=== PATIENT | female | born 1960 | race Two or more races ===

== ENCOUNTER 2016-11-13 08:33 | Emergency (ER) | payer OTHER ==
[2016-11-13 08:54] VITALS: TEMP 97.8; BMI 20.7
[2016-11-13] MEDS ORDERED: METOCLOPRAMIDE HCL INJECTION 10 MG/2 ML VIAL IVPB ONE (10:05)
[2016-11-13] MEDS ORDERED: SODIUM CHLORIDE 1,000 ML IV STA (10:05)
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
[2016-11-13] MEDS ORDERED: amLODIPine BESYLATE 10 MG TABLET (FP) PO ONE (10:13)
[2016-11-13] MEDS ORDERED: METOCLOPRAMIDE HCL INJECTION 10 MG/2 ML VIAL ONE (10:20)
[2016-11-13] MEDS ORDERED: amLODIPine BESYLATE 5 MG TABLET (FP) ONE (10:29)
[2016-11-13 10:31] LABS: BASOPHIL 0.8 % (0-2.0); MCH 33.8 pg (25.7-33.7); MCHC 34.6 g/dl (32.0-36.0); MEAN CELL VOLUME 97.6 fl (80-96); MEAN PLT VOLUME 9.6 fl (7.5-11.1); NEUTROPHILS 61.6 % (42.8-82.8); PLATELET COUNT 159 K/MM3 (134-434); WHITE BLOOD COUNT 4.8 K/mm3 (4.0-10.0)
[2016-11-13 10:45] LABS: ALBUMIN 4.1 g/dl (3.4-5.0); ANION GAP 7 (8-16); CALCIUM 9.2 mg/dL (8.5-10.1); CO2 28 mmol/L (21-32); CREATININE 0.8 mg/dL (0.55-1.02); GLUCOSE,RANDOM 95 mg/dL (74-106); SGOT/AST 28 U/L (15-37); SGPT/ALT 24 U/L (12-78)
[2016-11-13 10:47] LABS: ALK PHOS 101 U/L (45-117); BILIRUBIN,TOTAL 0.5 mg/dL (0.2-1.0); TOT PROT 7.4 g/dl (6.4-8.2)
[2016-11-13] MEDS ORDERED: ONDANSETRON 4 MG/2 ML VIAL IVPUSH ONE (12:26)
[2016-11-13] MEDS ORDERED: ONDANSETRON 4 MG/2 ML VIAL ONE (13:08)
[2016-11-13 14:07] VITALS: BP 132/75; PULSE 68
== END 2016-11-13 14:09 | disposition home or self-care (01) ==
LOC: JER 08:33
PROC: 3E033GC Introduction of Other Therapeutic Substance into Peripheral Vein, Percutaneous Approach (ICD-10-PCS; principal; 2016-11-13)
PROC: 3E0337Z Introduction of Electrolytic and Water Balance Substance into Peripheral Vein, Percutaneous Approach (ICD-10-PCS; 2016-11-13)
DX: R11.2 Nausea with vomiting, unspecified (principal); Z21 Asymptomatic human immunodeficiency virus [HIV] infection status; J45.909 Unspecified asthma, uncomplicated; J44.9 Chronic obstructive pulmonary disease, unspecified; I10 Essential (primary) hypertension; F99 Mental disorder, not otherwise specified; K74.60 Unspecified cirrhosis of liver; F17.210 Nicotine dependence, cigarettes, uncomplicated
CPT/HCPCS: 36415; 80053; 83690; 85025; 96361; 96374; 96375; 99282-25

== ENCOUNTER 2016-11-17 11:26 | Emergency (ER) | payer OTHER ==
[2016-11-17 11:39] VITALS: BMI 20.1
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
[2016-11-17] MEDS ORDERED: SODIUM CHLORIDE 1,000 ML IV STA (12:37)
[2016-11-17] MEDS ORDERED: METOCLOPRAMIDE HCL INJECTION 10 MG/2 ML VIAL IVPB ONE (12:37)
[2016-11-17] MEDS ORDERED: FAMOTIDINE 20 MG/50 ML IVPB 50 ML IVPB ONE ×2 (12:37→12:51)
[2016-11-17] MEDS ORDERED: METOCLOPRAMIDE HCL INJECTION 10 MG/2 ML VIAL ONE (12:51)
[2016-11-17 13:17] LABS: BASOPHIL 0.8 % (0-2.0); EOSINOPHIL 1.2 % (0-4.5); MCH 33.7 pg (25.7-33.7); MCHC 34.4 g/dl (32.0-36.0); MEAN PLT VOLUME 10.4 fl (7.5-11.1); PLATELET COUNT 155 K/MM3 (134-434); RDW 12.5 % (11.6-15.6); WHITE BLOOD COUNT 6.2 K/mm3 (4.0-10.0)
[2016-11-17 13:19] LABS: ALBUMIN 3.9 g/dl (3.4-5.0); ANION GAP 4 (8-16); CALCIUM 9.4 mg/dL (8.5-10.1); CO2 30 mmol/L (21-32); CREATININE 0.8 mg/dL (0.55-1.02); GLUCOSE,RANDOM 99 mg/dL (74-106); SGPT/ALT 24 U/L (12-78); TOT PROT 7.1 g/dl (6.4-8.2)
[2016-11-17 13:25] LABS: ALK PHOS 91 U/L (45-117); BILIRUBIN,TOTAL 0.3 mg/dL (0.2-1.0)
[2016-11-17 13:30] LABS: SGOT/AST 33 U/L (15-37)
[2016-11-17 13:34] LABS: URINE MARIJUANA THC POSITIVE ng/ml (CUTOFF=50)
[2016-11-17 13:43] LABS: URINE APPEARANCE TURBID; URINE BILIRUBIN NEGATIVE (NEGATIVE); URINE BLOOD NEGATIVE (NEGATIVE); URINE COLOR AMBER; URINE GLUCOSE (UA) NEGATIVE (NEGATIVE); URINE KETONE NEGATIVE (NEGATIVE); URINE NITRITE NEGATIVE (NEGATIVE); URINE PROTEIN NEGATIVE (NEGATIVE); URINE UROBILINOGEN NEGATIVE E.U./dl (0.2-1.0)
[2016-11-17 13:53] LABS: URINE LEUK ESTERASE 3+ (NEGATIVE)
[2016-11-17 13:57] LABS: URINE RBC 2 /hpf (0-3); URINE WBC 4 /hpf (3-5); YEAST MANY
--- NOTE | 2016-11-17 16:10 | EKG ---
Test Reason : Blood Pressure : / mmHG Vent. Rate : 058 BPM Atrial Rate : 058 BPM P-R Int : 162 ms QRS Dur : 076 ms QT Int : 464 ms P-R-T Axes : 070 001 052 degrees QTc Int : 455 ms SINUS BRADYCARDIA OTHERWISE NORMAL ECG WHEN COMPARED WITH ECG OF 30-AUG-2015 17:43, T WAVE VARIATION Confirmed by KIMBERLY ZUÑIGA MD ([id number]) on 11/17/2016 4:10:17 PM Referred By: Confirmed By:KIMBERLY ZUÑIGA MD
[2016-11-17] MEDS ORDERED: CIPROFLOXACIN 400 MG/D5W 200 ML IVPB ONE (16:56)
[2016-11-17 18:05] VITALS: BP 135/87; PULSE 67; TEMP 99.6
== END 2016-11-17 18:05 | disposition other institution (70) ==
LOC: JER 11:26
PROC: 3E033GC Introduction of Other Therapeutic Substance into Peripheral Vein, Percutaneous Approach (ICD-10-PCS; principal; 2016-11-17)
PROC: 3E03329 Introduction of Other Anti-infective into Peripheral Vein, Percutaneous Approach (ICD-10-PCS; 2016-11-17)
PROC: 3E033GC Introduction of Other Therapeutic Substance into Peripheral Vein, Percutaneous Approach (ICD-10-PCS; 2016-11-17)
DX: N39.0 Urinary tract infection, site not specified (principal); F11.20 Opioid dependence, uncomplicated; F14.20 Cocaine dependence, uncomplicated; F12.20 Cannabis dependence, uncomplicated; I10 Essential (primary) hypertension; J44.9 Chronic obstructive pulmonary disease, unspecified; K74.69 Other cirrhosis of liver; B19.20 Unspecified viral hepatitis C without hepatic coma; Z21 Asymptomatic human immunodeficiency virus [HIV] infection status; F31.9 Bipolar disorder, unspecified; F17.210 Nicotine dependence, cigarettes, uncomplicated
CPT/HCPCS: 36415; 74177-TC; 80053; 80307; 81003; 81015; 83690; 85025; 87086; 93005; 93010; 96365; 96367; 96375; 99285-25; Q9967

== ENCOUNTER 2016-11-18 11:43 | Inpatient (IN) | payer OTHER ==
[2016-11-18 12:55] VITALS: BMI 22.3
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
[2016-11-18] MEDS ORDERED: diphenhydrAMINE HCL 50 MG CAPSULE PO PRN (14:40)
[2016-11-18] MEDS ORDERED: MAGNESIUM CITRATE 300 ML BOTTLE PO PRN (14:40)
[2016-11-18] MEDS ORDERED: diazePAM 5 MG TABLET PO PRN (14:40)
[2016-11-18] MEDS ORDERED: ACETAMINOPHEN 325 MG TABLET (FP) PO PRN (14:40)
[2016-11-18] MEDS ORDERED: IBUPROFEN 400 MG TABLET (FP) PO PRN (14:40)
[2016-11-18] MEDS ORDERED: MAGNESIUM HYDROX 2400MG/30ML ORAL SUSPENSION 30 ML CUP PO PRN (14:40)
[2016-11-18] MEDS ORDERED: guaiFENesin/D-METHORPHAN HB 10 ML UNIT-DOSE CUPS PO PRN (14:40)
[2016-11-18] MEDS ORDERED: MENTHOL/PHENOL 1 EACH UD MM PRN (14:40)
[2016-11-18] MEDS ORDERED: P-EPHED 60MG/TRIPROLIDI 2.5MG TABLET PO PRN (14:40)
[2016-11-18] MEDS ORDERED: MAG HYDROX/AL HYDROX/SIMETH 30 ML UNIT-DOSE CUP PO PRN (14:40)
[2016-11-18] MEDS ORDERED: LOPERAMIDE HCL 2 MG CAPSULE PO PRN (14:40)
[2016-11-18] MEDS ORDERED: ALBUTEROL SO4 6.7 GM HFA INHALER IH PRN (14:47)
[2016-11-18] MEDS ORDERED: diazePAM 5 MG TABLET PO ONE (14:50)
[2016-11-18] MEDS ORDERED: METHADONE HCL 10 MG TABLET (FOR DETOX USE ONLY) PO ONE ×2 (14:54→23:00)
[2016-11-18] MEDS: NICOTINE 21 MG/24 HOURS TOPICAL PATCH TD SCH (15:48)
[2016-11-18] MEDS ORDERED: PATIENT'S OWN MEDICATION (NON-FORMULARY) (Sofosbuvir/Velpatasvir [Epclusa 400 Mg-100 Mg Ta PO SCH (16:00)
[2016-11-18] MEDS: PATIENT'S OWN MEDICATION (NON-FORMULARY) (Sofosbuvir/Velpatasvir [Epclusa 400 Mg-100 Mg Ta PO SCH (18:10)
[2016-11-18 20:24] LABS: URINE APPEARANCE CLOUDY; URINE BILIRUBIN NEGATIVE (NEGATIVE); URINE BLOOD NEGATIVE (NEGATIVE); URINE COLOR YELLOW; URINE GLUCOSE (UA) NEGATIVE (NEGATIVE); URINE KETONE NEGATIVE (NEGATIVE); URINE NITRITE NEGATIVE (NEGATIVE); URINE PROTEIN NEGATIVE (NEGATIVE); URINE UROBILINOGEN NEGATIVE E.U./dl (0.2-1.0)
[2016-11-18 20:27] LABS: URINE LEUK ESTERASE 3+ (NEGATIVE)
[2016-11-18 20:40] LABS: URINE BACTERIA RARE /hpf (NONE SEEN); URINE MUCUS RARE; URINE RBC 5 /hpf (0-3); URINE WBC 3 /hpf (3-5)
[2016-11-18] MEDS: THIAMINE HCL 100 MG TABLET (FP) PO SCH (22:10)
[2016-11-18] MEDS: diazePAM 5 MG TABLET PO SCH (22:10)
[2016-11-19] MEDS: diazePAM 5 MG TABLET PO SCH ×3 (05:55→22:07)
[2016-11-19] MEDS ORDERED: EMTRICITAB/RILPIVIRINE/TENOFOV 1 EACH TABLET PO SCH (08:00)
--- NOTE | 2016-11-19 08:22 | CONSULT ---
[facility] Psychiatric Consult - Data Date of interview: 11/19/16 Admission source: [facility] Identifying data: This is 55 years old female with history of Bipolar disorder, history of psychiatric hospitalizations intoxicated with: Alcohol, Crack, Heroin and Nicotine Substance Abuse History: - Smoking Cessation. Smoking history: Current every day smoker. Have you smoked in the past 12 months: Yes. Aproximately how many cigarettes per day: 20. Cigars Per Day: 0. Hx Chewing Tobacco Use: No. Initiated information on smoking cessation: Yes. 'Breaking Loose' booklet given : 11/18/16. - Substance & Tx. History. Hx Alcohol Use: Yes (BEER/VODKA). Hx Substance Use: Yes (HEROIN/CRACK). Substance Use Type: Alcohol, Cocaine, Heroin. Hx Substance Use Treatment: Yes ([facility]). - Substances Abused. Heroin. Route: Inhalation. Frequency: Daily. Amount used: 4 BAGS. Age of first use: 55. Date of Last Use: 11/16/16. Crack. Route: Smoking. Frequency: Daily. Amount used: 4 BAGS. Age of first use: 23. Date of Last Use : 11/16/16. Alcohol. Route: Oral. Frequency: Daily. Amount used: 6PK BEER. Age of first use: 9. Date of Last Use: 11/16/16 Medical History: HepC+< HIV+, HTN, UTI history, Weight loss history, Asthma Psychiatric History: Patient reports to carry Bipolar disorder with most recent psychiatric admission. on 2016 at [facility] for safety, reports taking prior to admission: Ambien 10mgpo qhs. Effexor XO 75mg poqd Physical/Sexual Abuse/Trauma History: Denies Additional Comment: Ambien 10mgpo qhs. Effexor XO 75mg poqd Mental Status Exam - Mental Status Exam Alert and Oriented to: Person Cognitive Function: Fair Patient Appearance: Unkempt Mood: Sad Affect: Flat Patient Behavior: Sedated Speech Pattern: Delayed Voice Loudness: Mildly Loud Thought Process: Circumstantial Thought Disorder: Being Controlled Hallucinations: Denies Suicidal Ideation: Denies Homicidal Ideation: Denies Insight/Judgement: Fair Sleep: Difficulty falling asleep Appetite: Weight loss Muscle strength/Tone: Normal Gait/Station: Shuffling Additional Comments: Ambien 10mgpo qhs. Effexor XO 75mg poqd Psychiatric Findings - Problem List ([place] 1, 2,3) (1) Bipolar I disorder Current Visit: No Status: Active (2) Cannabis abuse Current Visit: No Status: Acute (3) Narcotic abuse Current Visit: No Status: Acute (4) Tobacco use disorder Current Visit: No Status: Acute Comment: smoking cessation advised (5) Weight loss, non-intentional Current Visit: No Status: Acute Comment: 20 lb wt loss noted since last visit? check CMP, CBC, TFTs, AFP refer for abd u/s refer to GI for eval rx for Ensure 1 can po tid sent to pharmacy - will likely need PA f/u with PCP in 1 wk (6) Alcohol dependence with uncomplicated withdrawal Current Visit: No Status: Chronic Comment: Reports she is no longer taking alcohol (7) Cannabis dependence, uncomplicated Current Visit: No Status: Chronic (8) Cocaine dependence Current Visit: No Status: Chronic (9) Nicotine dependence Current Visit: No Status: Chronic Qualifiers: Nicotine product type: cigarettes Substance use status: uncomplicated Qualified Code(s): F17.210 - Nicotine dependence, cigarettes, uncomplicated (10) Opioid dependence with withdrawal Current Visit: No Status: Chronic Comment: Encouraged to seek professional assistance. Pt will attenpt admission to Detox (11) bipolar disorder Current Visit: No Status: Chronic - Initial Treatment Plan Initial Treatment Plan: Ambien 10mgpo qhs. Effexor XO 75mg poqd
[2016-11-19] MEDS ORDERED: METHADONE HCL 10 MG TABLET (FOR DETOX USE ONLY) PO SCH (10:00)
[2016-11-19] MEDS ORDERED: PATIENT'S OWN MEDICATION (NON-FORMULARY) (Sofosbuvir/Velpatasvir [Epclusa 400 Mg-100 Mg Ta PO SCH (10:00)
[2016-11-19 10:30] LABS: ALBUMIN 4.2 g/dl (3.4-5.0); ALK PHOS 105 U/L (45-117); ANION GAP 8 (8-16); BILIRUBIN,TOTAL 0.4 mg/dL (0.2-1.0); CALCIUM 9.3 mg/dL (8.5-10.1); CO2 27 mmol/L (21-32); CREATININE 0.8 mg/dL (0.55-1.02); GLUCOSE,RANDOM 111 mg/dL (74-106); SGOT/AST 24 U/L (15-37); SGPT/ALT 25 U/L (12-78); TOT PROT 7.3 g/dl (6.4-8.2)
[2016-11-19] MEDS: amLODIPine BESYLATE 10 MG TABLET (FP) PO SCH (10:30)
[2016-11-19] MEDS: PRENATAL VITAMINS W/ FOLIC ACID TABLET (FP) PO SCH (10:30)
[2016-11-19] MEDS: EMTRICITAB/RILPIVIRINE/TENOFOV 1 EACH TABLET PO SCH (10:30)
[2016-11-19 10:32] LABS: MCH 33.8 pg (25.7-33.7); MCHC 33.9 g/dl (32.0-36.0); MEAN CELL VOLUME 99.7 fl (80-96); MEAN PLT VOLUME 10.7 fl (7.5-11.1); PLATELET COUNT 134 K/MM3 (134-434); RDW 12.4 % (11.6-15.6); WHITE BLOOD COUNT 5.7 K/mm3 (4.0-10.0)
[2016-11-19] MEDS: NICOTINE 21 MG/24 HOURS TOPICAL PATCH TD SCH (10:32)
--- NOTE | 2016-11-19 11:00 | PN ---
S CIWA - CIWA Score Nausea/Vomitin Muscle Tremors: 2 Anxiety: 3 Agitation: 2 Paroxysmal Sweats: 3 Orientation: 0-Oriented Tacttile Disturbances: 1-Very Mild Itch/Numbness Auditory Disturbances: 0-None Visual Disturbances: 0-None Headache: 0-None Present CIWA-Ar Total Score: 13 S COWS - Scale Resting Pulse: 0= [place] 80 or Below Sweatin=Flushed/Facial Moisture Restless Observation: 1= Difficult to Sit Still Pupil Size: 1= Pupils >than Normal Bone or Joint Aches: 1= Mild Discomfort Runny Nose/ Eye Tearin= Nasal Congestion GI Upset > 30mins: 1= Stomach Cramp Tremor Observation of Outstretched Hands: 1= Tremor [place], Not Seen Yawning Observation: 0= None Anxiety or Irritability: 2=Irritable/Anxious Goose Flesh Skin: 0=Smooth Skin COWS Score: 10 S Progress Note (SOAP) Subjective: interrupted sleep, sweats, but better Objective: 11/19/16 10:59 Vital Signs Temperature 97.7 F 11/19/16 10:12 Pulse Rate 64 11/19/16 10:12 Respiratory Rate 18 11/19/16 10:12 Blood Pressure 111/70 11/19/16 10:12 O2 Sat by Pulse Oximetry (%) Laboratory Tests 11/18/16 11/19/16 11/19/16 15:00 05:45 05:45 WBC 5.7 RBC 4.29 Hgb 14.5 Hct 42.8 MCV 99.7 H MCHC 33.9 RDW 12.4 Plt Count 134 MPV 10.7 Sodium 144 Potassium 3.5 Chloride 109 H Carbon Dioxide 27 Anion Gap 8 BUN 10 D Creatinine 0.8 Creat Clearance w eGFR > 60 Random Glucose 111 H Calcium 9.3 Total Bilirubin 0.4 D AST 24 D ALT 25 Alkaline Phosphatase 105 Total Protein 7.3 Albumin 4.2 Urine Color Yellow Urine Appearance Cloudy Urine pH 6.0 D Ur Specific [place] 1.017 Urine Protein Negative Urine Glucose (UA) Negative Urine Ketones Negative Urine Blood Negative Urine Nitrite Negative Urine Bilirubin Negative Urine Urobilinogen Negative Ur Leukocyte Esterase 3+ H Urine RBC 5 Urine WBC 3 Ur Epithelial Cells Moderate Urine Bacteria Rare Urine Mucus Rare pt aox3 lying in bed in nad Assessment: 11/19/16 10:59 withdrawl sx;s Plan: cont. detox increase fluids
[2016-11-19] MEDS: VENLAFAXINE HCL 75 MG E.R. CAPSULES (FP) PO SCH (12:13)
[2016-11-19] MEDS: NICOTINE POLACRILEX 4 MG GUM BUC PRN (15:04)
--- NOTE | 2016-11-19 17:07 | EKG ---
Test Reason : Blood Pressure : / mmHG Vent. Rate : 067 BPM Atrial Rate : 067 BPM P-R Int : 160 ms QRS Dur : 090 ms QT Int : 410 ms P-R-T Axes : 062 009 034 degrees QTc Int : 433 ms NORMAL SINUS RHYTHM VOLTAGE CRITERIA FOR LEFT VENTRICULAR HYPERTROPHY ABNORMAL ECG WHEN COMPARED WITH ECG OF 17-NOV-2016 13:16, NO SIGNIFICANT CHANGE WAS FOUND Confirmed by MCKENZIE GARCIA MD ([id number]) on 11/19/2016 5:06:53 PM Referred By: Confirmed By:MCKENZIE GARCIA MD
[2016-11-19] MEDS: hydrOXYzine PAMOATE 25 MG CAPSULE (FP) PO PRN (17:25)
[2016-11-19] MEDS: PATIENT'S OWN MEDICATION (NON-FORMULARY) (Sofosbuvir/Velpatasvir [Epclusa 400 Mg-100 Mg Ta PO SCH (17:25)
[2016-11-19] MEDS ORDERED: ONDANSETRON *ODT* 4 MG TABLET SL ONE (19:23)
--- NOTE | 2016-11-19 19:25 | PN ---
[facility] Progress Note Note: received nurse call vomiting x 1 undigested food zofran 4 mg sl x 1 increase oral fluid continue detox
[2016-11-19] MEDS: ZOLPIDEM TARTRATE 10 MG TABLET (PARK CARE ONLY) PO PRN (22:06)
[2016-11-19] MEDS: THIAMINE HCL 100 MG TABLET (FP) PO SCH (22:07)
[2016-11-20] MEDS: EMTRICITAB/RILPIVIRINE/TENOFOV 1 EACH TABLET PO SCH (08:36)
[2016-11-20] MEDS: PRENATAL VITAMINS W/ FOLIC ACID TABLET (FP) PO SCH (10:41)
[2016-11-20] MEDS: diazePAM 5 MG TABLET PO SCH ×2 (10:41→22:20)
[2016-11-20] MEDS: amLODIPine BESYLATE 10 MG TABLET (FP) PO SCH (10:41)
[2016-11-20] MEDS: METHADONE HCL 5 MG TABLET (FOR DETOX USE ONLY) PO SCH (10:41)
[2016-11-20] MEDS: VENLAFAXINE HCL 75 MG E.R. CAPSULES (FP) PO SCH (10:41)
[2016-11-20] MEDS: NICOTINE 21 MG/24 HOURS TOPICAL PATCH TD SCH (10:43)
[2016-11-20] MEDS ORDERED: IBUPROFEN 600 MG TABLET (FP) PO PRN (11:49)
--- NOTE | 2016-11-20 11:49 | PN ---
[facility] CIWA - CIWA Score Nausea/Vomitin-No Nausea/No Vomiting Muscle Tremors: 4-Moderate,w/Arms Extend Anxiety: 2 Agitation: 3 Paroxysmal Sweats: 3 Orientation: 0-Oriented Tacttile Disturbances: 0-None Auditory Disturbances: 0-None Visual Disturbances: 0-None Headache: 0-None Present CIWA-Ar Total Score: 12 S COWS - Scale Resting Pulse: 0= [place] 80 or Below Sweatin=Flushed/Facial Moisture Restless Observation: 1= Difficult to Sit Still Pupil Size: 0= Normal to Room Light Bone or Joint Aches: 1= Mild Discomfort Runny Nose/ Eye Tearin= Nasal Congestion GI Upset > 30mins: 0= None Tremor Observation of Outstretched Hands: 2= Slight Tremor Visible Yawning Observation: 2= >3x During Session Anxiety or Irritability: 2=Irritable/Anxious Goose Flesh Skin: 0=Smooth Skin COWS Score: 11 [facility] Progress Note (SOAP) Subjective: body aches sweats headache interrupted sleep shakes Objective: 11/20/16 11:47 Vital Signs Temperature 97.3 F L 11/20/16 10:00 Pulse Rate 60 11/20/16 10:00 Respiratory Rate 18 11/20/16 10:00 Blood Pressure 119/72 11/20/16 10:00 O2 Sat by Pulse Oximetry (%) Laboratory Tests 11/18/16 11/19/16 11/19/16 15:00 05:45 05:45 WBC 5.7 RBC 4.29 Hgb 14.5 Hct 42.8 MCV 99.7 H MCHC 33.9 RDW 12.4 Plt Count 134 MPV 10.7 Sodium 144 Potassium 3.5 Chloride 109 H Carbon Dioxide 27 Anion Gap 8 BUN 10 D Creatinine 0.8 Creat Clearance w eGFR > 60 Random Glucose 111 H Calcium 9.3 Total Bilirubin 0.4 D AST 24 D ALT 25 Alkaline Phosphatase 105 Total Protein 7.3 Albumin 4.2 Urine Color Yellow Urine Appearance Cloudy Urine pH 6.0 D Ur Specific [place] 1.017 Urine Protein Negative Urine Glucose (UA) Negative Urine Ketones Negative Urine Blood Negative Urine Nitrite Negative Urine Bilirubin Negative Urine Urobilinogen Negative Ur Leukocyte Esterase 3+ H Urine RBC 5 Urine WBC 3 Ur Epithelial Cells Moderate Urine Bacteria Rare Urine Mucus Rare RPR Titer 11/19/16 05:45 WBC RBC Hgb Hct MCV MCHC RDW Plt Count MPV Sodium Potassium Chloride Carbon Dioxide Anion Gap BUN Creatinine Creat Clearance w eGFR Random Glucose Calcium Total Bilirubin AST ALT Alkaline Phosphatase Total Protein Albumin Urine Color Urine Appearance Urine pH Ur Specific [place] Urine Protein Urine Glucose (UA) Urine Ketones Urine Blood Urine Nitrite Urine Bilirubin Urine Urobilinogen Ur Leukocyte Esterase Urine RBC Urine WBC Ur Epithelial Cells Urine Bacteria Urine Mucus RPR Titer Nonreactive awake/alert ambulating no acute distress Assessment: 11/20/16 11:47 continue detox increase fluids lidocaine patch motrin 600mg prn analgesic balm Plan: continue detox increase fluids
[2016-11-20] MEDS: LIDOCAINE 5% TOPICAL PATCH TP SCH (13:37)
[2016-11-20] MEDS: METHYL SALICYLATE/MENTHOL OINT 30 GM TUBE TP SCH ×2 (13:38→22:19)
[2016-11-20] MEDS: PATIENT'S OWN MEDICATION (NON-FORMULARY) (Sofosbuvir/Velpatasvir [Epclusa 400 Mg-100 Mg Ta PO SCH (17:07)
--- NOTE | 2016-11-20 17:34 | PN ---
[facility] Progress Note Note: C/O NAUSEA ZOFRAN 4 MG SL X 1 CONTINUE DETOX
[2016-11-20] MEDS ORDERED: ONDANSETRON *ODT* 4 MG TABLET SL ONE (17:45)
[2016-11-20] MEDS: ZOLPIDEM TARTRATE 10 MG TABLET (PARK CARE ONLY) PO PRN (22:19)
[2016-11-20] MEDS: THIAMINE HCL 100 MG TABLET (FP) PO SCH (22:20)
[2016-11-20] MEDS: hydrOXYzine PAMOATE 25 MG CAPSULE (FP) PO PRN (22:20)
[2016-11-21] MEDS: EMTRICITAB/RILPIVIRINE/TENOFOV 1 EACH TABLET PO SCH (07:47)
[2016-11-21] MEDS: LIDOCAINE 5% TOPICAL PATCH TP SCH (10:11)
[2016-11-21] MEDS: PRENATAL VITAMINS W/ FOLIC ACID TABLET (FP) PO SCH (10:35)
[2016-11-21] MEDS: NICOTINE 21 MG/24 HOURS TOPICAL PATCH TD SCH (10:35)
[2016-11-21] MEDS: amLODIPine BESYLATE 10 MG TABLET (FP) PO SCH (10:35)
[2016-11-21] MEDS: diazePAM 5 MG TABLET PO SCH ×2 (10:35→22:22)
[2016-11-21] MEDS: VENLAFAXINE HCL 75 MG E.R. CAPSULES (FP) PO SCH (10:36)
[2016-11-21] MEDS: METHYL SALICYLATE/MENTHOL OINT 30 GM TUBE TP SCH ×2 (10:38→22:22)
[2016-11-21] MEDS: METHADONE HCL 5 MG TABLET (FOR DETOX USE ONLY) PO SCH (10:38)
[2016-11-21] MEDS: NICOTINE POLACRILEX 4 MG GUM BUC PRN (10:39)
--- NOTE | 2016-11-21 14:02 | PN ---
[facility] Progress Note (SOAP) Subjective: nausea, sweats, interupted sleep, anxiety, tremors , back and knee 0pain Objective: 11/21/16 14:01 Vital Signs - 8 hr 11/21/16 11/21/16 06:32 10:04 Temperature 98.8 F 97.5 F L Pulse Rate 64 64 Respiratory 16 18 Rate Blood Pressure 99/60 113/64 Laboratory Tests 11/18/16 11/19/16 11/19/16 15:00 05:45 05:45 WBC 5.7 RBC 4.29 Hgb 14.5 Hct 42.8 MCV 99.7 H MCHC 33.9 RDW 12.4 Plt Count 134 MPV 10.7 Sodium 144 Potassium 3.5 Chloride 109 H Carbon Dioxide 27 Anion Gap 8 BUN 10 D Creatinine 0.8 Creat Clearance w eGFR > 60 Random Glucose 111 H Calcium 9.3 Total Bilirubin 0.4 D AST 24 D ALT 25 Alkaline Phosphatase 105 Total Protein 7.3 Albumin 4.2 Urine Color Yellow Urine Appearance Cloudy Urine pH 6.0 D Ur Specific [place] 1.017 Urine Protein Negative Urine Glucose (UA) Negative Urine Ketones Negative Urine Blood Negative Urine Nitrite Negative Urine Bilirubin Negative Urine Urobilinogen Negative Ur Leukocyte Esterase 3+ H Urine RBC 5 Urine WBC 3 Ur Epithelial Cells Moderate Urine Bacteria Rare Urine Mucus Rare RPR Titer 11/19/16 05:45 WBC RBC Hgb Hct MCV MCHC RDW Plt Count MPV Sodium Potassium Chloride Carbon Dioxide Anion Gap BUN Creatinine Creat Clearance w eGFR Random Glucose Calcium Total Bilirubin AST ALT Alkaline Phosphatase Total Protein Albumin Urine Color Urine Appearance Urine pH Ur Specific [place] Urine Protein Urine Glucose (UA) Urine Ketones Urine Blood Urine Nitrite Urine Bilirubin Urine Urobilinogen Ur Leukocyte Esterase Urine RBC Urine WBC Ur Epithelial Cells Urine Bacteria Urine Mucus RPR Titer Nonreactive Assessment: 11/21/16 14:02 withdrawal sx, nociceptive pain Plan: cont detox, symptomatic relief o pain with narpsyn and flexeril
[2016-11-21] MEDS: CYCLOBENZAPRINE HCL 10 MG TABLET (FP) PO SCH ×2 (15:10→22:22)
[2016-11-21] MEDS: PATIENT'S OWN MEDICATION (NON-FORMULARY) (Sofosbuvir/Velpatasvir [Epclusa 400 Mg-100 Mg Ta PO SCH (18:35)
[2016-11-21] MEDS: THIAMINE HCL 100 MG TABLET (FP) PO SCH (22:21)
[2016-11-21] MEDS: NAPROXEN 500 MG TABLET (FP) PO SCH (22:22)
[2016-11-21] MEDS: ZOLPIDEM TARTRATE 10 MG TABLET (PARK CARE ONLY) PO PRN (22:22)
[2016-11-22] MEDS: CYCLOBENZAPRINE HCL 10 MG TABLET (FP) PO SCH ×3 (05:58→22:11)
[2016-11-22] MEDS: EMTRICITAB/RILPIVIRINE/TENOFOV 1 EACH TABLET PO SCH (07:23)
[2016-11-22] MEDS ORDERED: diazePAM 5 MG TABLET PO SCH (10:00)
[2016-11-22] MEDS ORDERED: METHADONE HCL 10 MG TABLET (FOR DETOX USE ONLY) PO SCH (10:00)
[2016-11-22] MEDS: PRENATAL VITAMINS W/ FOLIC ACID TABLET (FP) PO SCH (10:30)
[2016-11-22] MEDS: VENLAFAXINE HCL 75 MG E.R. CAPSULES (FP) PO SCH (10:30)
[2016-11-22] MEDS: amLODIPine BESYLATE 10 MG TABLET (FP) PO SCH (10:30)
[2016-11-22] MEDS: NAPROXEN 500 MG TABLET (FP) PO SCH ×2 (10:30→22:11)
[2016-11-22] MEDS: LIDOCAINE 5% TOPICAL PATCH TP SCH (10:31)
[2016-11-22] MEDS: NICOTINE 21 MG/24 HOURS TOPICAL PATCH TD SCH (10:31)
[2016-11-22] MEDS: METHYL SALICYLATE/MENTHOL OINT 30 GM TUBE TP SCH ×2 (10:32→22:10)
--- NOTE | 2016-11-22 11:30 | PN ---
[facility] Progress Note (SOAP) Subjective: nausea, sweats, interrupted sleep, anxiety, tremors Objective: 11/22/16 11:29 Vital Signs - 8 hr 11/22/16 11/22/16 11/22/16 03:30 06:00 11:00 Temperature 97.7 F 97.2 F L Pulse Rate 64 64 Respiratory 18 18 18 Rate Blood Pressure 103/66 105/70 Laboratory Tests 11/18/16 11/19/16 11/19/16 15:00 05:45 05:45 WBC 5.7 RBC 4.29 Hgb 14.5 Hct 42.8 MCV 99.7 H MCHC 33.9 RDW 12.4 Plt Count 134 MPV 10.7 Sodium 144 Potassium 3.5 Chloride 109 H Carbon Dioxide 27 Anion Gap 8 BUN 10 D Creatinine 0.8 Creat Clearance w eGFR > 60 Random Glucose 111 H Calcium 9.3 Total Bilirubin 0.4 D AST 24 D ALT 25 Alkaline Phosphatase 105 Total Protein 7.3 Albumin 4.2 Urine Color Yellow Urine Appearance Cloudy Urine pH 6.0 D Ur Specific [place] 1.017 Urine Protein Negative Urine Glucose (UA) Negative Urine Ketones Negative Urine Blood Negative Urine Nitrite Negative Urine Bilirubin Negative Urine Urobilinogen Negative Ur Leukocyte Esterase 3+ H Urine RBC 5 Urine WBC 3 Ur Epithelial Cells Moderate Urine Bacteria Rare Urine Mucus Rare RPR Titer 11/19/16 05:45 WBC RBC Hgb Hct MCV MCHC RDW Plt Count MPV Sodium Potassium Chloride Carbon Dioxide Anion Gap BUN Creatinine Creat Clearance w eGFR Random Glucose Calcium Total Bilirubin AST ALT Alkaline Phosphatase Total Protein Albumin Urine Color Urine Appearance Urine pH Ur Specific [place] Urine Protein Urine Glucose (UA) Urine Ketones Urine Blood Urine Nitrite Urine Bilirubin Urine Urobilinogen Ur Leukocyte Esterase Urine RBC Urine WBC Ur Epithelial Cells Urine Bacteria Urine Mucus RPR Titer Nonreactive Assessment: 11/22/16 11:29 withdrawal sx Plan: cont detox
[2016-11-22] MEDS: PATIENT'S OWN MEDICATION (NON-FORMULARY) (Sofosbuvir/Velpatasvir [Epclusa 400 Mg-100 Mg Ta PO SCH (17:12)
[2016-11-22] MEDS: THIAMINE HCL 100 MG TABLET (FP) PO SCH (22:10)
[2016-11-22] MEDS: ZOLPIDEM TARTRATE 10 MG TABLET (PARK CARE ONLY) PO PRN (22:11)
[2016-11-23] MEDS: CYCLOBENZAPRINE HCL 10 MG TABLET (FP) PO SCH (05:48)
[2016-11-23] MEDS ORDERED: METHADONE HCL 5 MG TABLET (FOR DETOX USE ONLY) PO SCH (06:00)
[2016-11-23] MEDS: EMTRICITAB/RILPIVIRINE/TENOFOV 1 EACH TABLET PO SCH (07:49)
--- NOTE | 2016-11-23 08:53 | DS ---
[facility] Detox Discharge Summary Admission Date: 11/18/16 Discharge Date: 11/23/16 - History Present History: Cannabis Dependence - Physical Exam Results Vital Signs: Vital Signs Temperature 98.1 F 11/23/16 06:00 Pulse Rate 69 11/23/16 06:00 Respiratory Rate 18 11/23/16 06:00 Blood Pressure 116/69 11/23/16 06:00 O2 Sat by Pulse Oximetry (%) - Treatment Hospital Course: Detox Protocol Followed, Detoxed Safely, Responded well, Discharged Condition Good, Rehab Referral Accepted - Medication Discharge Medications: Ambulatory Orders Sofosbuvir/Velpatasvir [Epclusa 400 mg-100 mg Tablet] 1 each PO DAILY #30 tablet 07/30/16 Albuterol Sulfate Inhaler - [Ventolin HFA Inhaler -] 2 inh IH Q4H PRN #1 inh Amlodipine Besylate [Norvasc -] 10 mg PO DAILY #30 tablet 10/28/16 Emtricitab/Rilpivirine/Tenofov [Complera Tablet -] 1 each PO DAILY #30 tablet Venlafaxine HCl ER [Effexor Xr -] 75 mg PO DAILY #30 cap.er.24h MDD 1 10/28/16 Zolpidem Tartrate [Ambien] 10 mg PO HS #20 tablet MDD 1 10/28/16 Zolpidem Tartrate [Ambien] 0 mg PO HS #14 tablet MDD 10 11/19/16 Zolpidem Tartrate [Ambien] 10 mg GT HS #14 tablet MDD 10 11/19/16 Zolpidem Tartrate [Ambien] 10 mg GT HS #14 tablet MDD 10 11/19/16 Zolpidem Tartrate [Ambien] 10 mg PO HS #14 tablet MDD 10 11/19/16 Zolpidem Tartrate [Ambien] 10 mg PO HS PRN #14 tablet MDD 10 11/19/16 - AMA Did Patient Leave Against Medical Advice: No
[2016-11-23] MEDS: amLODIPine BESYLATE 10 MG TABLET (FP) PO SCH (10:10)
[2016-11-23] MEDS: VENLAFAXINE HCL 75 MG E.R. CAPSULES (FP) PO SCH (10:10)
[2016-11-23] MEDS: NICOTINE 21 MG/24 HOURS TOPICAL PATCH TD SCH (10:10)
[2016-11-23] MEDS: NAPROXEN 500 MG TABLET (FP) PO SCH (10:10)
[2016-11-23] MEDS: PRENATAL VITAMINS W/ FOLIC ACID TABLET (FP) PO SCH (10:10)
[2016-11-23] MEDS: LIDOCAINE 5% TOPICAL PATCH TP SCH (10:12)
[2016-11-23] MEDS: METHYL SALICYLATE/MENTHOL OINT 30 GM TUBE TP SCH (10:12)
[2016-11-23 10:15] VITALS: BP 105/63; PULSE 68; TEMP 97.1
== END 2016-11-23 12:29 | disposition other institution (70) | DRG 773 ==
LOC: YASAS 11:43 → Y6N 14:33
PROVIDERS: ADMIT Internal Medicine Addiction Medicine; ATTEND Internal Medicine Addiction Medicine
PROC: HZ2ZZZZ Detoxification Services for Substance Abuse Treatment (ICD-10-PCS; principal; 2016-11-18)
DX: F11.23 Opioid dependence with withdrawal (principal); F10.230 Alcohol dependence with withdrawal, uncomplicated; F14.20 Cocaine dependence, uncomplicated; F12.20 Cannabis dependence, uncomplicated; F17.210 Nicotine dependence, cigarettes, uncomplicated; F31.9 Bipolar disorder, unspecified; J45.909 Unspecified asthma, uncomplicated; I10 Essential (primary) hypertension; E78.00 Pure hypercholesterolemia, unspecified; K74.60 Unspecified cirrhosis of liver; Z21 Asymptomatic human immunodeficiency virus [HIV] infection status; Z87.898 Personal history of other specified conditions; Z91.5 Personal history of self-harm
CPT/HCPCS: 36415; 80053; 81003; 81015; 85027; 86593; 93005; 93010

== ENCOUNTER 2016-11-23 13:15 | Inpatient (IN) | payer OTHER ==
[2016-11-23 14:10] VITALS: BMI 22.4
[2016-11-23] MEDS ORDERED: MENTHOL/PHENOL 1 EACH UD MM PRN (14:29)
[2016-11-23] MEDS ORDERED: MAGNESIUM CITRATE 300 ML BOTTLE PO PRN (14:29)
[2016-11-23] MEDS ORDERED: MAGNESIUM HYDROX 2400MG/30ML ORAL SUSPENSION 30 ML CUP PO PRN (14:29)
[2016-11-23] MEDS ORDERED: guaiFENesin/D-METHORPHAN HB 10 ML UNIT-DOSE CUPS PO PRN (14:29)
[2016-11-23] MEDS ORDERED: diphenhydrAMINE HCL 50 MG CAPSULE PO PRN (14:29)
[2016-11-23] MEDS ORDERED: P-EPHED 60MG/TRIPROLIDI 2.5MG TABLET PO PRN (14:29)
[2016-11-23] MEDS ORDERED: MAG HYDROX/AL HYDROX/SIMETH 30 ML UNIT-DOSE CUP PO PRN (14:29)
[2016-11-23] MEDS ORDERED: LOPERAMIDE HCL 2 MG CAPSULE PO PRN (14:29)
[2016-11-23] MEDS ORDERED: ALBUTEROL SO4 6.7 GM HFA INHALER IH PRN (14:30)
--- NOTE | 2016-11-23 15:22 | HP ---
Psychiatrist Admission - Data Date of interview: 11/23/16 Admission source: [address] [place] [address] Identifying data: This is the third admission to [address] [place] [address] for this 55 years old H female single mother of 4,supported by rhoda GÓMEZ. Medical History: Significant for HIV+,Hep C,HTN,Liver cirrhosis,Hyperlipidemia. Psychiatric History: First contact with psychiatrist was in 2007 in [place] when she found out that she is HIV+.Patient got severe depressed,suicidal(DOD) .Patient was dx with Bipolar disorder and placed on medications.Then she had second admission a few months later for the same reason.Patient reports 4-5 more psychiatric hospitalizations .Most recent was in 2016 to [facility].Patient is under psychiatric care at [facility].Current medications: Seroquel 50 mg po hs,Effexor XR 75 po daily. Vital Signs: Vital Signs - 24 hr 11/23/16 11/23/16 12:50 14:09 Temperature 97.9 F 97.9 F Pulse Rate 69 Respiratory 18 Rate Blood Pressure 98/64 Allergies/Adverse Reactions: Allergies Allergy/AdvReac Type Severity Reaction Status Date / Time Penicillins Allergy Severe Swelling Verified 11/18/16 13:28 Date of last physical exam: 11/18/16 Concur with the findings of this exam: Yes - Substance Abuse/Tx History Hx Alcohol Use: Yes (reports drinking since 9 yo,6 packs daily) Hx Substance Use: Yes (crack since 23 yo,4 bags daily,heroin since 55 yo,4 bags daily ) Substance Use Type: Alcohol, Cocaine, Heroin Hx Substance Use Treatment: Yes (multiple treatments,completed this program in 2016) - Admission Criteria Previous failed treatment: Yes Poor recovery environment: Yes Comorbidities: Yes Lacks judgement: Yes Mental Status Exam - Mental Status Exam Alert and Oriented to: Time, Place, Person Cognitive Function: Grossly Intact Patient Appearance: Unkempt Mood: Anxious Affect: Mood Congruent, Labile Patient Behavior: Cooperative Speech Pattern: Clear Voice Loudness: Normal Thought Process: Goal Oriented Thought Disorder: Being Controlled Hallucinations: Denies Suicidal Ideation: Denies Homicidal Ideation: Denies Insight/Judgement: Fair Sleep: Fair Appetite: Fair Muscle strength/Tone: Normal Gait/Station: Normal Psychiatric Findings - Problem List ([place] 1, 2,3) (1) Alcohol dependence with uncomplicated withdrawal Current Visit: Yes Status: Chronic Comment: Reports she is no longer taking alcohol (2) Bipolar II disorder Current Visit: Yes Status: Chronic (3) Cocaine dependence Current Visit: Yes Status: Chronic Qualifiers: Substance use status: uncomplicated Qualified Code(s): F14.20 - Cocaine dependence, uncomplicated (4) Cannabis abuse Current Visit: Yes Status: Chronic (5) HIV disease Current Visit: Yes Status: Chronic (6) Hep C w/o coma, chronic Current Visit: Yes Status: Chronic Comment: Pt started Epclusa end of Jul/beginning of August with undetectable VL in August and September; pt should have completed tx but states someone told her she still has 1 mo left; ? adherence? -checked w/ pharmacy; pt picked up meds end of Jul/Aug; refilled beginning of September and beginning of October - pt should have completed medication; will f /u with pt and pt's regular provider (Satish Prieto, [facility]) -check Hep C VL, AFP -refer for abd u/s (7) Hypertension Current Visit: Yes Status: Chronic Qualifiers: Hypertension type: essential hypertension Qualified Code(s): I10 - Essential (primary) hypertension Comment: Continue Norvasc as prescribed - Initial Treatment Plan Initial Treatment Plan: CONTINUE SEROQUEL 50 MG PO HS. WILL MONITOR PROGRESS.
--- NOTE | 2016-11-23 16:13 | HP ---
[facility] Rehab Assess/Revision - Admission History Admitted to Rehab from: [facility] [place] Date of Admission to Rehab: 11/23/16 - Vital signs Vital Signs: Vital Signs Period Temp Pulse Resp BP Sys/Cole Pulse Ox Last 24 Hr 97.9 F-97.9 F 69 18 98/64 - Findings Detox History & Physical reviewed: Yes Concur with findings: Yes Comments/Additional Findings: transferred from detox to rehab admission as per protocol
[2016-11-23] MEDS: THIAMINE HCL 100 MG TABLET (FP) PO SCH (21:24)
[2016-11-23] MEDS: QUEtiapine FUMARATE 50 MG TABLET PO SCH (21:24)
[2016-11-24] MEDS ORDERED: PT OWN MED DRAWER 7, Y5N ONE (08:46)
[2016-11-24] MEDS ORDERED: amLODIPine BESYLATE 10 MG TABLET (FP) PO SCH (10:00)
[2016-11-24] MEDS: LIDOCAINE 5% TOPICAL PATCH TP SCH (10:41)
[2016-11-24] MEDS: PRENATAL VITAMINS W/ FOLIC ACID TABLET (FP) PO SCH (10:41)
[2016-11-24] MEDS: PATIENT'S OWN MEDICATION (NON-FORMULARY) (Sofosbuvir/Velpatasvir [Epclusa 400 Mg-100 Mg Ta PO SCH (10:42)
[2016-11-24] MEDS: NICOTINE 21 MG/24 HOURS TOPICAL PATCH TD SCH (10:42)
[2016-11-24] MEDS ORDERED: ONDANSETRON *ODT* 4 MG TABLET SL PRN (12:30)
[2016-11-24] MEDS: THIAMINE HCL 100 MG TABLET (FP) PO SCH (21:18)
[2016-11-24] MEDS: CYCLOBENZAPRINE HCL 10 MG TABLET (FP) PO PRN (21:18)
[2016-11-24] MEDS: QUEtiapine FUMARATE 50 MG TABLET PO SCH (21:18)
[2016-11-24] MEDS: ACETAMINOPHEN 325 MG TABLET (FP) PO PRN (21:18)
[2016-11-25] MEDS: EMTRICITAB/RILPIVIRINE/TENOFOV 1 EACH TABLET PO SCH (08:22)
[2016-11-25] MEDS: LIDOCAINE 5% TOPICAL PATCH TP SCH (10:02)
[2016-11-25] MEDS: PRENATAL VITAMINS W/ FOLIC ACID TABLET (FP) PO SCH (10:02)
[2016-11-25] MEDS: amLODIPine BESYLATE 5 MG TABLET (FP) PO SCH (10:03)
[2016-11-25] MEDS: NICOTINE 21 MG/24 HOURS TOPICAL PATCH TD SCH (10:05)
[2016-11-25] MEDS: PATIENT'S OWN MEDICATION (NON-FORMULARY) (Sofosbuvir/Velpatasvir [Epclusa 400 Mg-100 Mg Ta PO SCH ×2 (10:05→17:25)
[2016-11-25] MEDS ORDERED: PT OWN MED DRAWER 7, Y5N ONE ×2 (10:06→16:35)
[2016-11-25] MEDS: THIAMINE HCL 100 MG TABLET (FP) PO SCH (21:25)
[2016-11-25] MEDS: QUEtiapine FUMARATE 50 MG TABLET PO SCH (21:25)
[2016-11-26] MEDS: EMTRICITAB/RILPIVIRINE/TENOFOV 1 EACH TABLET PO SCH (07:21)
[2016-11-26] MEDS ORDERED: PT OWN MED DRAWER 7, Y5N ONE (07:29)
[2016-11-26] MEDS: LIDOCAINE 5% TOPICAL PATCH TP SCH (10:20)
[2016-11-26] MEDS: PRENATAL VITAMINS W/ FOLIC ACID TABLET (FP) PO SCH (10:20)
[2016-11-26] MEDS: NICOTINE 21 MG/24 HOURS TOPICAL PATCH TD SCH (10:21)
[2016-11-26] MEDS: amLODIPine BESYLATE 5 MG TABLET (FP) PO SCH (10:22)
[2016-11-26] MEDS: NICOTINE POLACRILEX 4 MG GUM BUC PRN (11:22)
[2016-11-26] MEDS: PATIENT'S OWN MEDICATION (NON-FORMULARY) (Sofosbuvir/Velpatasvir [Epclusa 400 Mg-100 Mg Ta PO SCH (17:35)
[2016-11-26] MEDS: THIAMINE HCL 100 MG TABLET (FP) PO SCH (21:28)
[2016-11-26] MEDS: QUEtiapine FUMARATE 50 MG TABLET PO SCH (21:28)
[2016-11-27] MEDS: EMTRICITAB/RILPIVIRINE/TENOFOV 1 EACH TABLET PO SCH (07:18)
[2016-11-27] MEDS: NICOTINE 21 MG/24 HOURS TOPICAL PATCH TD SCH (10:17)
[2016-11-27] MEDS: PRENATAL VITAMINS W/ FOLIC ACID TABLET (FP) PO SCH (10:17)
[2016-11-27] MEDS: LIDOCAINE 5% TOPICAL PATCH TP SCH (10:17)
[2016-11-27] MEDS: amLODIPine BESYLATE 5 MG TABLET (FP) PO SCH (10:18)
--- NOTE | 2016-11-27 12:24 | PN ---
[facility] Progress Note Note: c/o burning on urination and whitish foul smelling discharge from on vagina repeat urinalysis, urine for c and s, start monistat for presumed yeast infection.
[2016-11-27] MEDS: PATIENT'S OWN MEDICATION (NON-FORMULARY) (Sofosbuvir/Velpatasvir [Epclusa 400 Mg-100 Mg Ta PO SCH (16:59)
[2016-11-27 21:02] LABS: URINE APPEARANCE CLOUDY; URINE BILIRUBIN NEGATIVE (NEGATIVE); URINE BLOOD NEGATIVE (NEGATIVE); URINE COLOR DKYELLOW; URINE GLUCOSE (UA) NEGATIVE (NEGATIVE); URINE KETONE NEGATIVE (NEGATIVE); URINE NITRITE NEGATIVE (NEGATIVE); URINE PROTEIN NEGATIVE (NEGATIVE); URINE UROBILINOGEN NEGATIVE E.U./dl (0.2-1.0)
[2016-11-27] MEDS: QUEtiapine FUMARATE 50 MG TABLET PO SCH (21:07)
[2016-11-27] MEDS: THIAMINE HCL 100 MG TABLET (FP) PO SCH (21:07)
[2016-11-27] MEDS: hydrOXYzine PAMOATE 50 MG CAPSULE (FP) PO PRN (21:07)
[2016-11-27 21:08] LABS: URINE LEUK ESTERASE 3+ (NEGATIVE)
[2016-11-27] MEDS: MICONAZOLE NITRATE 100 MG SUPP SUPP.VAG PV SCH (21:08)
[2016-11-27 21:42] LABS: URINE BACTERIA RARE /hpf (NONE SEEN); URINE MUCUS RARE; URINE RBC 9 /hpf (0-3); URINE WBC 82 /hpf (3-5)
[2016-11-28] MEDS: EMTRICITAB/RILPIVIRINE/TENOFOV 1 EACH TABLET PO SCH (07:04)
[2016-11-28] MEDS ORDERED: PT OWN MED DRAWER 7, Y5N ONE ×2 (07:05→17:29)
[2016-11-28] MEDS: PRENATAL VITAMINS W/ FOLIC ACID TABLET (FP) PO SCH (10:00)
[2016-11-28] MEDS: LIDOCAINE 5% TOPICAL PATCH TP SCH (10:00)
[2016-11-28] MEDS: NICOTINE 21 MG/24 HOURS TOPICAL PATCH TD SCH (10:00)
[2016-11-28] MEDS: NICOTINE POLACRILEX 4 MG GUM BUC PRN (10:01)
[2016-11-28] MEDS: PATIENT'S OWN MEDICATION (NON-FORMULARY) (Sofosbuvir/Velpatasvir [Epclusa 400 Mg-100 Mg Ta PO SCH (17:44)
[2016-11-28] MEDS: MICONAZOLE NITRATE 100 MG SUPP SUPP.VAG PV SCH (21:13)
[2016-11-28] MEDS: THIAMINE HCL 100 MG TABLET (FP) PO SCH (21:14)
[2016-11-28] MEDS: QUEtiapine FUMARATE 50 MG TABLET PO SCH (21:14)
[2016-11-29] MEDS: EMTRICITAB/RILPIVIRINE/TENOFOV 1 EACH TABLET PO SCH (07:29)
[2016-11-29] MEDS: LIDOCAINE 5% TOPICAL PATCH TP SCH (10:02)
[2016-11-29] MEDS: PRENATAL VITAMINS W/ FOLIC ACID TABLET (FP) PO SCH (10:02)
[2016-11-29] MEDS: NICOTINE 21 MG/24 HOURS TOPICAL PATCH TD SCH (10:02)
[2016-11-29] MEDS: CYCLOBENZAPRINE HCL 10 MG TABLET (FP) PO PRN (14:54)
[2016-11-29] MEDS ORDERED: PT OWN MED DRAWER 7, Y5N ONE (16:46)
[2016-11-29] MEDS: PATIENT'S OWN MEDICATION (NON-FORMULARY) (Sofosbuvir/Velpatasvir [Epclusa 400 Mg-100 Mg Ta PO SCH (17:35)
[2016-11-29] MEDS: QUEtiapine FUMARATE 50 MG TABLET PO SCH (21:03)
[2016-11-29] MEDS: MICONAZOLE NITRATE 100 MG SUPP SUPP.VAG PV SCH (21:03)
[2016-11-29] MEDS: THIAMINE HCL 100 MG TABLET (FP) PO SCH (21:03)
[2016-11-30] MEDS: EMTRICITAB/RILPIVIRINE/TENOFOV 1 EACH TABLET PO SCH (07:34)
[2016-11-30] MEDS: CYCLOBENZAPRINE HCL 10 MG TABLET (FP) PO PRN (07:36)
[2016-11-30] MEDS ORDERED: PT OWN MED DRAWER 7, Y5N ONE ×2 (07:36→19:15)
[2016-11-30] MEDS: PRENATAL VITAMINS W/ FOLIC ACID TABLET (FP) PO SCH (09:53)
[2016-11-30] MEDS: LIDOCAINE 5% TOPICAL PATCH TP SCH (09:54)
[2016-11-30] MEDS: NICOTINE 21 MG/24 HOURS TOPICAL PATCH TD SCH (09:54)
--- NOTE | 2016-11-30 14:27 | PN ---
[facility] Progress Note Note: u/c&s + for trep agalatiae sensitive to levaquin levaquin 500mg x 7d
[2016-11-30] MEDS: LEVOFLOXACIN 500 MG TABLET (FP) PO SCH (15:40)
[2016-11-30] MEDS: PATIENT'S OWN MEDICATION (NON-FORMULARY) (Sofosbuvir/Velpatasvir [Epclusa 400 Mg-100 Mg Ta PO SCH (17:30)
[2016-11-30] MEDS: THIAMINE HCL 100 MG TABLET (FP) PO SCH (21:45)
[2016-11-30] MEDS: QUEtiapine FUMARATE 50 MG TABLET PO SCH (21:45)
[2016-11-30] MEDS: MICONAZOLE NITRATE 100 MG SUPP SUPP.VAG PV SCH (21:45)
[2016-12-01] MEDS ORDERED: PT OWN MED DRAWER 7, Y5N ONE ×3 (05:34→23:20)
[2016-12-01] MEDS: LEVOFLOXACIN 500 MG TABLET (FP) PO SCH (06:54)
[2016-12-01] MEDS: EMTRICITAB/RILPIVIRINE/TENOFOV 1 EACH TABLET PO SCH (07:29)
[2016-12-01] MEDS: PRENATAL VITAMINS W/ FOLIC ACID TABLET (FP) PO SCH (09:55)
[2016-12-01] MEDS: LIDOCAINE 5% TOPICAL PATCH TP SCH (09:55)
[2016-12-01] MEDS: NICOTINE 21 MG/24 HOURS TOPICAL PATCH TD SCH (09:56)
[2016-12-01] MEDS: PATIENT'S OWN MEDICATION (NON-FORMULARY) (Sofosbuvir/Velpatasvir [Epclusa 400 Mg-100 Mg Ta PO SCH (17:30)
[2016-12-01] MEDS: MICONAZOLE NITRATE 100 MG SUPP SUPP.VAG PV SCH (21:16)
[2016-12-01] MEDS: THIAMINE HCL 100 MG TABLET (FP) PO SCH (21:17)
[2016-12-01] MEDS: QUEtiapine FUMARATE 50 MG TABLET PO SCH (21:17)
[2016-12-02] MEDS: LEVOFLOXACIN 500 MG TABLET (FP) PO SCH (06:18)
[2016-12-02] MEDS ORDERED: PT OWN MED DRAWER 7, Y5N ONE ×3 (08:19→20:13)
[2016-12-02] MEDS: EMTRICITAB/RILPIVIRINE/TENOFOV 1 EACH TABLET PO SCH (08:22)
[2016-12-02] MEDS: PRENATAL VITAMINS W/ FOLIC ACID TABLET (FP) PO SCH (09:43)
[2016-12-02] MEDS: NICOTINE 21 MG/24 HOURS TOPICAL PATCH TD SCH (09:43)
[2016-12-02] MEDS: LIDOCAINE 5% TOPICAL PATCH TP SCH (09:43)
[2016-12-02] MEDS: NICOTINE POLACRILEX 4 MG GUM BUC PRN (09:45)
[2016-12-02] MEDS: PATIENT'S OWN MEDICATION (NON-FORMULARY) (Sofosbuvir/Velpatasvir [Epclusa 400 Mg-100 Mg Ta PO SCH (18:50)
[2016-12-02] MEDS: MICONAZOLE NITRATE 100 MG SUPP SUPP.VAG PV SCH (21:11)
[2016-12-02] MEDS: THIAMINE HCL 100 MG TABLET (FP) PO SCH (21:11)
[2016-12-02] MEDS: QUEtiapine FUMARATE 50 MG TABLET PO SCH (21:11)
[2016-12-03] MEDS ORDERED: PT OWN MED DRAWER 7, Y5N ONE ×5 (03:13→21:16)
[2016-12-03] MEDS: LEVOFLOXACIN 500 MG TABLET (FP) PO SCH (06:29)
[2016-12-03] MEDS: EMTRICITAB/RILPIVIRINE/TENOFOV 1 EACH TABLET PO SCH (07:07)
[2016-12-03] MEDS: LIDOCAINE 5% TOPICAL PATCH TP SCH (10:04)
[2016-12-03] MEDS: NICOTINE 21 MG/24 HOURS TOPICAL PATCH TD SCH (10:05)
[2016-12-03] MEDS: PRENATAL VITAMINS W/ FOLIC ACID TABLET (FP) PO SCH (10:05)
[2016-12-03] MEDS: NICOTINE POLACRILEX 4 MG GUM BUC PRN (10:07)
[2016-12-03] MEDS: hydrOXYzine PAMOATE 50 MG CAPSULE (FP) PO PRN (15:34)
[2016-12-03] MEDS: PATIENT'S OWN MEDICATION (NON-FORMULARY) (Sofosbuvir/Velpatasvir [Epclusa 400 Mg-100 Mg Ta PO SCH (16:37)
[2016-12-03] MEDS: THIAMINE HCL 100 MG TABLET (FP) PO SCH (21:15)
[2016-12-03] MEDS: QUEtiapine FUMARATE 50 MG TABLET PO SCH (21:15)
[2016-12-03] MEDS: MICONAZOLE NITRATE 100 MG SUPP SUPP.VAG PV SCH (21:16)
[2016-12-04] MEDS ORDERED: PT OWN MED DRAWER 7, Y5N ONE ×3 (03:16→20:04)
[2016-12-04] MEDS: LEVOFLOXACIN 500 MG TABLET (FP) PO SCH (06:27)
[2016-12-04] MEDS: EMTRICITAB/RILPIVIRINE/TENOFOV 1 EACH TABLET PO SCH (07:48)
[2016-12-04] MEDS: PRENATAL VITAMINS W/ FOLIC ACID TABLET (FP) PO SCH (10:04)
[2016-12-04] MEDS: NICOTINE 21 MG/24 HOURS TOPICAL PATCH TD SCH (10:04)
[2016-12-04] MEDS: LIDOCAINE 5% TOPICAL PATCH TP SCH (10:04)
--- NOTE | 2016-12-04 14:59 | PN ---
[facility] Progress Note Note: Pt. vomited 2x today,she's on levaquin for uti c&s + for strep agalaciae, pt. has hx. of PID. bp 122/77 p 96 r 16 t 97.9 O2 sat 100% abd. : soft lower abdomen but tender to touch Dx. : UTI R/O PID P : transfer to ED, report given to Dr. Frye
[2016-12-04] MEDS: PATIENT'S OWN MEDICATION (NON-FORMULARY) (Sofosbuvir/Velpatasvir [Epclusa 400 Mg-100 Mg Ta PO SCH (19:06)
[2016-12-04] MEDS: THIAMINE HCL 100 MG TABLET (FP) PO SCH (21:27)
[2016-12-04] MEDS: QUEtiapine FUMARATE 50 MG TABLET PO SCH (21:27)
[2016-12-04] MEDS: MICONAZOLE NITRATE 100 MG SUPP SUPP.VAG PV SCH (21:29)
[2016-12-05] MEDS ORDERED: PT OWN MED DRAWER 7, Y5N ONE ×2 (06:02→16:53)
[2016-12-05] MEDS: EMTRICITAB/RILPIVIRINE/TENOFOV 1 EACH TABLET PO SCH (07:03)
[2016-12-05] MEDS: NITROFURANTOIN MACROCRYSTAL 50 MG CAPSULE (FP) PO SCH ×3 (08:27→17:08)
[2016-12-05] MEDS: PRENATAL VITAMINS W/ FOLIC ACID TABLET (FP) PO SCH (09:48)
[2016-12-05] MEDS: NICOTINE 21 MG/24 HOURS TOPICAL PATCH TD SCH (09:48)
[2016-12-05] MEDS: LIDOCAINE 5% TOPICAL PATCH TP SCH (09:48)
[2016-12-05] MEDS: NICOTINE POLACRILEX 4 MG GUM BUC PRN (09:49)
[2016-12-05] MEDS: PATIENT'S OWN MEDICATION (NON-FORMULARY) (Sofosbuvir/Velpatasvir [Epclusa 400 Mg-100 Mg Ta PO SCH (17:09)
[2016-12-05] MEDS: THIAMINE HCL 100 MG TABLET (FP) PO SCH (21:19)
[2016-12-05] MEDS: QUEtiapine FUMARATE 50 MG TABLET PO SCH (21:19)
[2016-12-05] MEDS: MICONAZOLE NITRATE 100 MG SUPP SUPP.VAG PV SCH (21:21)
[2016-12-06] MEDS: NITROFURANTOIN MACROCRYSTAL 50 MG CAPSULE (FP) PO SCH ×5 (01:00→23:19)
[2016-12-06] MEDS ORDERED: PT OWN MED DRAWER 7, Y5N ONE ×4 (05:41→17:02)
[2016-12-06] MEDS: EMTRICITAB/RILPIVIRINE/TENOFOV 1 EACH TABLET PO SCH (07:03)
[2016-12-06] MEDS: LIDOCAINE 5% TOPICAL PATCH TP SCH (09:39)
[2016-12-06] MEDS: PRENATAL VITAMINS W/ FOLIC ACID TABLET (FP) PO SCH (09:40)
[2016-12-06] MEDS: NICOTINE POLACRILEX 4 MG GUM BUC PRN (09:40)
[2016-12-06] MEDS: NICOTINE 21 MG/24 HOURS TOPICAL PATCH TD SCH (09:40)
[2016-12-06] MEDS: PATIENT'S OWN MEDICATION (NON-FORMULARY) (Sofosbuvir/Velpatasvir [Epclusa 400 Mg-100 Mg Ta PO SCH (17:03)
[2016-12-06] MEDS: THIAMINE HCL 100 MG TABLET (FP) PO SCH (21:15)
[2016-12-06] MEDS: QUEtiapine FUMARATE 50 MG TABLET PO SCH (21:15)
[2016-12-06] MEDS: MICONAZOLE NITRATE 100 MG SUPP SUPP.VAG PV SCH (21:16)
[2016-12-07] MEDS ORDERED: PT OWN MED DRAWER 7, Y5N ONE ×5 (03:14→16:16)
[2016-12-07] MEDS: NITROFURANTOIN MACROCRYSTAL 50 MG CAPSULE (FP) PO SCH ×4 (06:13→23:56)
[2016-12-07] MEDS: EMTRICITAB/RILPIVIRINE/TENOFOV 1 EACH TABLET PO SCH (07:51)
[2016-12-07] MEDS: LIDOCAINE 5% TOPICAL PATCH TP SCH (09:51)
[2016-12-07] MEDS: PRENATAL VITAMINS W/ FOLIC ACID TABLET (FP) PO SCH (09:51)
[2016-12-07] MEDS: NICOTINE 21 MG/24 HOURS TOPICAL PATCH TD SCH (09:51)
[2016-12-07] MEDS: NICOTINE POLACRILEX 4 MG GUM BUC PRN (09:52)
[2016-12-07] MEDS: PATIENT'S OWN MEDICATION (NON-FORMULARY) (Sofosbuvir/Velpatasvir [Epclusa 400 Mg-100 Mg Ta PO SCH (17:37)
[2016-12-07] MEDS: THIAMINE HCL 100 MG TABLET (FP) PO SCH (21:18)
[2016-12-07] MEDS: QUEtiapine FUMARATE 50 MG TABLET PO SCH (21:18)
[2016-12-08] MEDS ORDERED: PT OWN MED DRAWER 7, Y5N ONE ×4 (05:57→23:24)
[2016-12-08] MEDS: NITROFURANTOIN MACROCRYSTAL 50 MG CAPSULE (FP) PO SCH ×4 (06:05→23:23)
[2016-12-08] MEDS: EMTRICITAB/RILPIVIRINE/TENOFOV 1 EACH TABLET PO SCH (08:00)
[2016-12-08] MEDS: PRENATAL VITAMINS W/ FOLIC ACID TABLET (FP) PO SCH (09:39)
[2016-12-08] MEDS: NICOTINE 21 MG/24 HOURS TOPICAL PATCH TD SCH (09:40)
[2016-12-08] MEDS: LIDOCAINE 5% TOPICAL PATCH TP SCH (09:41)
[2016-12-08] MEDS: PATIENT'S OWN MEDICATION (NON-FORMULARY) (Sofosbuvir/Velpatasvir [Epclusa 400 Mg-100 Mg Ta PO SCH (17:00)
[2016-12-08] MEDS: THIAMINE HCL 100 MG TABLET (FP) PO SCH (21:15)
[2016-12-08] MEDS: QUEtiapine FUMARATE 50 MG TABLET PO SCH (21:15)
[2016-12-09] MEDS ORDERED: PT OWN MED DRAWER 7, Y5N ONE ×5 (03:42→23:26)
[2016-12-09] MEDS: NITROFURANTOIN MACROCRYSTAL 50 MG CAPSULE (FP) PO SCH ×3 (07:17→17:32)
[2016-12-09] MEDS: EMTRICITAB/RILPIVIRINE/TENOFOV 1 EACH TABLET PO SCH (07:17)
[2016-12-09] MEDS: NICOTINE 21 MG/24 HOURS TOPICAL PATCH TD SCH (10:09)
[2016-12-09] MEDS: LIDOCAINE 5% TOPICAL PATCH TP SCH (10:09)
[2016-12-09] MEDS: PRENATAL VITAMINS W/ FOLIC ACID TABLET (FP) PO SCH (10:09)
[2016-12-09] MEDS: NICOTINE POLACRILEX 4 MG GUM BUC PRN (10:11)
--- NOTE | 2016-12-09 15:41 | PN ---
[facility] Progress Note Note: continue to have vaginal discharge,has hx of PID P : Doxycyclin 100mg bid
[2016-12-09] MEDS: DOXYCYCLINE HYCLATE 100 MG TABLET PO SCH (17:32)
[2016-12-09] MEDS: PATIENT'S OWN MEDICATION (NON-FORMULARY) (Sofosbuvir/Velpatasvir [Epclusa 400 Mg-100 Mg Ta PO SCH (17:32)
[2016-12-09] MEDS: THIAMINE HCL 100 MG TABLET (FP) PO SCH (21:18)
[2016-12-09] MEDS: QUEtiapine FUMARATE 50 MG TABLET PO SCH (21:18)
[2016-12-10] MEDS: NITROFURANTOIN MACROCRYSTAL 50 MG CAPSULE (FP) PO SCH ×5 (00:42→23:14)
[2016-12-10] MEDS: EMTRICITAB/RILPIVIRINE/TENOFOV 1 EACH TABLET PO SCH (07:18)
[2016-12-10] MEDS ORDERED: PT OWN MED DRAWER 7, Y5N ONE ×7 (07:19→23:15)
[2016-12-10] MEDS: LIDOCAINE 5% TOPICAL PATCH TP SCH (09:49)
[2016-12-10] MEDS: PRENATAL VITAMINS W/ FOLIC ACID TABLET (FP) PO SCH (09:50)
[2016-12-10] MEDS: NICOTINE 21 MG/24 HOURS TOPICAL PATCH TD SCH (09:50)
[2016-12-10] MEDS: DOXYCYCLINE HYCLATE 100 MG TABLET PO SCH ×2 (09:51→17:01)
[2016-12-10] MEDS: ACETAMINOPHEN 325 MG TABLET (FP) PO PRN (15:06)
[2016-12-10] MEDS: PATIENT'S OWN MEDICATION (NON-FORMULARY) (Sofosbuvir/Velpatasvir [Epclusa 400 Mg-100 Mg Ta PO SCH (17:02)
[2016-12-10] MEDS: THIAMINE HCL 100 MG TABLET (FP) PO SCH (21:23)
[2016-12-10] MEDS: QUEtiapine FUMARATE 50 MG TABLET PO SCH (21:23)
[2016-12-11] MEDS ORDERED: PT OWN MED DRAWER 7, Y5N ONE ×4 (05:48→16:49)
[2016-12-11] MEDS: NITROFURANTOIN MACROCRYSTAL 50 MG CAPSULE (FP) PO SCH ×4 (07:13→23:54)
[2016-12-11] MEDS: EMTRICITAB/RILPIVIRINE/TENOFOV 1 EACH TABLET PO SCH (07:13)
[2016-12-11] MEDS: DOXYCYCLINE HYCLATE 100 MG TABLET PO SCH ×2 (10:00→17:23)
[2016-12-11] MEDS: PRENATAL VITAMINS W/ FOLIC ACID TABLET (FP) PO SCH (10:00)
[2016-12-11] MEDS: NICOTINE 21 MG/24 HOURS TOPICAL PATCH TD SCH (10:00)
[2016-12-11] MEDS: LIDOCAINE 5% TOPICAL PATCH TP SCH (10:01)
[2016-12-11] MEDS: PATIENT'S OWN MEDICATION (NON-FORMULARY) (Sofosbuvir/Velpatasvir [Epclusa 400 Mg-100 Mg Ta PO SCH (17:24)
[2016-12-11] MEDS: THIAMINE HCL 100 MG TABLET (FP) PO SCH (21:10)
[2016-12-11] MEDS: QUEtiapine FUMARATE 50 MG TABLET PO SCH (21:10)
[2016-12-12] MEDS: EMTRICITAB/RILPIVIRINE/TENOFOV 1 EACH TABLET PO SCH (07:20)
[2016-12-12] MEDS: NICOTINE 21 MG/24 HOURS TOPICAL PATCH TD SCH (09:32)
[2016-12-12] MEDS: LIDOCAINE 5% TOPICAL PATCH TP SCH (09:33)
[2016-12-12] MEDS: PRENATAL VITAMINS W/ FOLIC ACID TABLET (FP) PO SCH (09:33)
[2016-12-12] MEDS: DOXYCYCLINE HYCLATE 100 MG TABLET PO SCH ×2 (09:33→17:06)
[2016-12-12] MEDS ORDERED: PT OWN MED DRAWER 7, Y5N ONE ×2 (10:14→16:21)
[2016-12-12] MEDS: PATIENT'S OWN MEDICATION (NON-FORMULARY) (Sofosbuvir/Velpatasvir [Epclusa 400 Mg-100 Mg Ta PO SCH (17:03)
[2016-12-12] MEDS: NICOTINE POLACRILEX 4 MG GUM BUC PRN (17:06)
[2016-12-12] MEDS: QUEtiapine FUMARATE 50 MG TABLET PO SCH (21:20)
[2016-12-12] MEDS: THIAMINE HCL 100 MG TABLET (FP) PO SCH (21:20)
[2016-12-13] MEDS ORDERED: PT OWN MED DRAWER 7, Y5N ONE ×3 (03:17→16:39)
[2016-12-13] MEDS: EMTRICITAB/RILPIVIRINE/TENOFOV 1 EACH TABLET PO SCH (07:12)
[2016-12-13] MEDS: LIDOCAINE 5% TOPICAL PATCH TP SCH (09:50)
[2016-12-13] MEDS: DOXYCYCLINE HYCLATE 100 MG TABLET PO SCH ×2 (09:51→17:00)
[2016-12-13] MEDS: PRENATAL VITAMINS W/ FOLIC ACID TABLET (FP) PO SCH (09:51)
[2016-12-13] MEDS: NICOTINE 21 MG/24 HOURS TOPICAL PATCH TD SCH (09:51)
[2016-12-13] MEDS: NICOTINE POLACRILEX 4 MG GUM BUC PRN (09:53)
[2016-12-13] MEDS: PATIENT'S OWN MEDICATION (NON-FORMULARY) (Sofosbuvir/Velpatasvir [Epclusa 400 Mg-100 Mg Ta PO SCH (17:00)
[2016-12-13] MEDS: QUEtiapine FUMARATE 50 MG TABLET PO SCH (21:07)
[2016-12-13] MEDS: THIAMINE HCL 100 MG TABLET (FP) PO SCH (21:07)
[2016-12-14] MEDS ORDERED: PT OWN MED DRAWER 7, Y5N ONE ×4 (06:02→21:06)
[2016-12-14] MEDS: EMTRICITAB/RILPIVIRINE/TENOFOV 1 EACH TABLET PO SCH (07:15)
[2016-12-14] MEDS: LIDOCAINE 5% TOPICAL PATCH TP SCH (09:49)
[2016-12-14] MEDS: DOXYCYCLINE HYCLATE 100 MG TABLET PO SCH ×2 (09:49→18:20)
[2016-12-14] MEDS: PRENATAL VITAMINS W/ FOLIC ACID TABLET (FP) PO SCH (09:49)
[2016-12-14] MEDS: NICOTINE 21 MG/24 HOURS TOPICAL PATCH TD SCH (09:49)
[2016-12-14] MEDS: NICOTINE POLACRILEX 4 MG GUM BUC PRN (09:50)
[2016-12-14] MEDS: hydrOXYzine PAMOATE 50 MG CAPSULE (FP) PO PRN (16:51)
[2016-12-14] MEDS: PATIENT'S OWN MEDICATION (NON-FORMULARY) (Sofosbuvir/Velpatasvir [Epclusa 400 Mg-100 Mg Ta PO SCH ×2 (17:25→18:54)
[2016-12-14] MEDS: THIAMINE HCL 100 MG TABLET (FP) PO SCH (21:18)
[2016-12-14] MEDS: QUEtiapine FUMARATE 50 MG TABLET PO SCH (21:18)
[2016-12-15] MEDS ORDERED: PT OWN MED DRAWER 7, Y5N ONE ×3 (05:50→10:57)
[2016-12-15 07:26] VITALS: BP 119/80; PULSE 71; TEMP 97.5
[2016-12-15] MEDS: EMTRICITAB/RILPIVIRINE/TENOFOV 1 EACH TABLET PO SCH (07:35)
[2016-12-15] MEDS: LIDOCAINE 5% TOPICAL PATCH TP SCH (09:50)
[2016-12-15] MEDS: DOXYCYCLINE HYCLATE 100 MG TABLET PO SCH (09:50)
[2016-12-15] MEDS: NICOTINE 21 MG/24 HOURS TOPICAL PATCH TD SCH (09:50)
[2016-12-15] MEDS: PRENATAL VITAMINS W/ FOLIC ACID TABLET (FP) PO SCH (09:50)
--- NOTE | 2017-03-03 11:13 | PN ---
[facility] Progress Note Note: Patient completed this program on 12/15/16.She has met her treatment goals and will continue to address her issues on outpatient basis.PAtient will continue current medications as per plan ,scripts for 30 days supply provided.Patient was stable on d/c day 12/15/16.
== END 2016-12-15 10:21 | disposition home or self-care (01) | DRG 772 ==
LOC: YASAS 13:15 → Y3E 13:17
PROVIDERS: ADMIT Psychiatry & Neurology Psychiatry; ATTEND Psychiatry & Neurology Psychiatry
PROC: HZ42ZZZ Group Counseling for Substance Abuse Treatment, Cognitive-Behavioral (ICD-10-PCS; principal; 2016-12-15)
DX: F10.230 Alcohol dependence with withdrawal, uncomplicated (principal); F14.20 Cocaine dependence, uncomplicated; F12.10 Cannabis abuse, uncomplicated; F31.81 Bipolar II disorder; Z21 Asymptomatic human immunodeficiency virus [HIV] infection status; B18.2 Chronic viral hepatitis C; I10 Essential (primary) hypertension
CPT/HCPCS: 81003; 81015; 87086; 87186

== ENCOUNTER 2016-12-04 15:46 | Emergency (ER) | payer OTHER ==
[2016-12-04 15:55] VITALS: TEMP 98.7; BMI 20.5
[2016-12-04] MEDS ORDERED: KETOROLAC TROMETHAMINE 30 MG/1 ML VIAL IVPUSH ONE (16:17)
[2016-12-04] MEDS ORDERED: SODIUM CHLORIDE 1,000 ML IV STA (16:19)
[2016-12-04] MEDS ORDERED: KETOROLAC TROMETHAMINE 30 MG/1 ML VIAL ONE (16:29)
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
[2016-12-04] MEDS ORDERED: ONDANSETRON 4 MG/2 ML VIAL ONE (16:35)
[2016-12-04] MEDS ORDERED: ONDANSETRON 4 MG/2 ML VIAL IVPUSH ONE (16:44)
[2016-12-04 16:52] LABS: BASOPHIL 1.4 % (0-2.0); EOSINOPHIL 2.2 % (0-4.5); MCH 32.6 pg (25.7-33.7); MEAN CELL VOLUME 95.9 fl (80-96); MEAN PLT VOLUME 9.6 fl (7.5-11.1); NEUTROPHILS 62.9 % (42.8-82.8); PLATELET COUNT 150 K/MM3 (134-434); RDW 12.7 % (11.6-15.6); WHITE BLOOD COUNT 6.6 K/mm3 (4.0-10.0)
[2016-12-04 16:56] LABS: URINE APPEARANCE CLOUDY; URINE BILIRUBIN NEGATIVE (NEGATIVE); URINE BLOOD NEGATIVE (NEGATIVE); URINE COLOR YELLOW; URINE GLUCOSE (UA) NEGATIVE (NEGATIVE); URINE KETONE NEGATIVE (NEGATIVE); URINE NITRITE NEGATIVE (NEGATIVE); URINE PROTEIN NEGATIVE (NEGATIVE); URINE UROBILINOGEN NEGATIVE E.U./dl (0.2-1.0)
[2016-12-04 17:07] LABS: URINE LEUK ESTERASE TRACE (NEGATIVE)
[2016-12-04 17:13] LABS: ALK PHOS 117 U/L (45-117); ANION GAP 8 (8-16); BILIRUBIN,TOTAL 0.2 mg/dL (0.2-1.0); CALCIUM 9.9 mg/dL (8.5-10.1); CO2 32 mmol/L (21-32); CREATININE 0.9 mg/dL (0.55-1.02); GLUCOSE,RANDOM 98 mg/dL (74-106); SGOT/AST 24 U/L (15-37); SGPT/ALT 25 U/L (12-78); TOT PROT 7.4 g/dl (6.4-8.2)
[2016-12-04 17:29] LABS: URINE RBC 3 /hpf (0-3); URINE WBC 13 /hpf (3-5)
[2016-12-04 18:18] VITALS: BP 134/85; PULSE 88
== END 2016-12-04 18:16 | disposition home or self-care (01) ==
LOC: JER 15:46
DX: K52.9 Noninfective gastroenteritis and colitis, unspecified (principal); R30.0 Dysuria; I10 Essential (primary) hypertension; E78.00 Pure hypercholesterolemia, unspecified; K74.60 Unspecified cirrhosis of liver
CPT/HCPCS: 36415; 80053; 81003; 81015; 83690; 85025; 87086; 99283-25

== ENCOUNTER 2017-06-14 09:12 | Emergency (ER) | payer OTHER ==
[2017-06-14] MEDS ORDERED: ONDANSETRON 4 MG/2 ML VIAL ONE (09:28)
[2017-06-14 09:29] VITALS: TEMP 97.9; BMI 23.4
[2017-06-14] MEDS ORDERED: SODIUM CHLORIDE 1,000 ML IV ONE (09:30)
[2017-06-14 09:52] LABS: BASOPHIL 0.5 % (0-2.0); EOSINOPHIL 0.1 % (0-4.5); MCH 32.8 pg (25.7-33.7); MCHC 34.3 g/dl (32.0-36.0); MEAN CELL VOLUME 95.7 fl (80-96); MEAN PLT VOLUME 10.3 fl (7.5-11.1); NEUTROPHILS 82.1 % (42.8-82.8); PLATELET COUNT 170 K/MM3 (134-434); RDW 13.5 % (11.6-15.6); WHITE BLOOD COUNT 9.7 K/mm3 (4.0-10.0)
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
[2017-06-14] MEDS ORDERED: MAG HYDROX/AL HYDROX/SIMETH 355 ML ORAL.SUSP PO ONE (09:57)
[2017-06-14] MEDS ORDERED: FAMOTIDINE 20 MG/50 ML IVPB 50 ML IVPB ONE ×2 (09:57→10:03)
[2017-06-14] MEDS ORDERED: MAG HYDROX/AL HYDROX/SIMETH 30 ML UNIT-DOSE CUP ONE (10:03)
[2017-06-14 10:10] LABS: ALBUMIN 4.4 g/dl (3.4-5.0); ANION GAP 8 (8-16); BILIRUBIN,TOTAL 0.6 mg/dL (0.2-1.0); CALCIUM 9.6 mg/dL (8.5-10.1); CO2 33 mmol/L (21-32); CREATININE 0.8 mg/dL (0.55-1.02); GLUCOSE,RANDOM 98 mg/dL (74-106); SGOT/AST 21 U/L (15-37); SGPT/ALT 21 U/L (12-78); TOT PROT 7.5 g/dl (6.4-8.2)
[2017-06-14] MEDS ORDERED: METOCLOPRAMIDE HCL INJECTION 10 MG/2 ML VIAL IVPUSH ONE (10:10)
[2017-06-14] MEDS ORDERED: METOCLOPRAMIDE HCL INJECTION 10 MG/2 ML VIAL ONE (10:11)
[2017-06-14 10:12] LABS: ALK PHOS 123 U/L (45-117); CPK 208 IU/L (26-192); TROPONIN I < 0.02 ng/ml (0.00-0.05)
[2017-06-14 10:20] LABS: INR 1.02 (0.82-1.09); PROTHROMBIN TIME (PATIENT) 11.2 SEC (9.98-11.88)
[2017-06-14 13:20] LABS: URINE APPEARANCE TURBID; URINE BILIRUBIN 1+ (NEGATIVE); URINE BLOOD NEGATIVE (NEGATIVE); URINE COLOR YELLOW; URINE GLUCOSE (UA) NEGATIVE (NEGATIVE); URINE KETONE 2+ (NEGATIVE); URINE LEUK ESTERASE NEGATIVE (NEGATIVE); URINE NITRITE NEGATIVE (NEGATIVE); URINE PROTEIN 1+ (NEGATIVE); URINE UROBILINOGEN 0.2 mg/dL (0.2-1.0)
[2017-06-14 13:31] LABS: URINE MUCUS MANY
[2017-06-14 14:32] VITALS: BP 116/68; PULSE 60
[2017-06-14 15:17] LABS: CPK 242 IU/L (26-192)
[2017-06-14 15:18] LABS: TROPONIN I < 0.02 ng/ml (0.00-0.05)
--- NOTE | 2017-06-16 16:49 | EKG ---
Test Reason : Blood Pressure : / mmHG Vent. Rate : 055 BPM Atrial Rate : 055 BPM P-R Int : 154 ms QRS Dur : 088 ms QT Int : 450 ms P-R-T Axes : 061 -06 031 degrees QTc Int : 430 ms SINUS BRADYCARDIA MINIMAL VOLTAGE CRITERIA FOR LVH, MAY BE NORMAL VARIANT BORDERLINE ECG WHEN COMPARED WITH ECG OF 17-MAR-2017 10:34, CRITERIA FOR SEPTAL INFARCT ARE NO LONGER PRESENT Confirmed by HENNA PARKER MD ([id number]) on 06/16/2017 4:48:50 PM Referred By: Confirmed By:HENNA PARKER MD
== END 2017-06-14 17:14 | disposition home or self-care (01) ==
LOC: JER 09:12
PROC: 3E033GC Introduction of Other Therapeutic Substance into Peripheral Vein, Percutaneous Approach (ICD-10-PCS; principal; 2017-06-14)
PROC: 3E0337Z Introduction of Electrolytic and Water Balance Substance into Peripheral Vein, Percutaneous Approach (ICD-10-PCS; 2017-06-14)
DX: R07.9 Chest pain, unspecified (principal)
CPT/HCPCS: 36415; 71010-TC; 80053; 81003; 81015; 82553; 83690; 84484; 85025; 85610; 93005; 93010; 99285-25

== ENCOUNTER 2018-09-06 12:41 | Inpatient (IN) | payer OTHER ==
[2018-09-06 15:30] VITALS: BMI 19.1
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
[2018-09-06] MEDS ORDERED: ALBUTEROL SO4 8 GM HFA INHALER IH PRN (19:10)
[2018-09-06] MEDS ORDERED: ALBUTEROL SO4 0.083% IH SOL 2.5 MG/3 ML VIAL.NEB. NEB PRN (19:10)
[2018-09-06] MEDS ORDERED: LOPERAMIDE HCL 2 MG CAPSULE PO PRN (19:21)
[2018-09-06] MEDS ORDERED: MENTHOL/PHENOL 1 EACH UD MM PRN (19:21)
[2018-09-06] MEDS ORDERED: NICOTINE POLACRILEX 2 MG GUM BUC PRN (19:21)
[2018-09-06] MEDS ORDERED: MAGNESIUM CITRATE 300 ML BOTTLE PO PRN (19:21)
[2018-09-06] MEDS ORDERED: guaiFENesin/D-METHORPHAN HB 10 ML UNIT-DOSE CUPS PO PRN (19:21)
[2018-09-06] MEDS ORDERED: hydrOXYzine PAMOATE 50 MG CAPSULE (FP) PO PRN (19:21)
[2018-09-06] MEDS ORDERED: MAG HYDROX/AL HYDROX/SIMETH 30 ML UNIT-DOSE CUP PO PRN (19:21)
[2018-09-06] MEDS ORDERED: METHADONE HCL 10 MG TABLET (FOR DETOX USE ONLY) PO ONE ×2 (19:21→23:00)
[2018-09-06] MEDS ORDERED: IBUPROFEN 400 MG TABLET (FP) PO PRN (19:21)
[2018-09-06] MEDS ORDERED: P-EPHED 60MG/TRIPROLIDI 2.5MG TABLET PO PRN (19:21)
[2018-09-06] MEDS ORDERED: chlordiazePOXIDE HCL 25 MG CAPSULE PO PRN (19:21)
[2018-09-06] MEDS ORDERED: MAGNESIUM HYDROX 2400MG/30ML ORAL SUSPENSION 30 ML CUP PO PRN (19:21)
[2018-09-06] MEDS ORDERED: ACETAMINOPHEN 325 MG TABLET (FP) PO PRN (19:21)
[2018-09-06] MEDS ORDERED: MELATONIN 5 MG TABLETS PO PRN (22:00)
[2018-09-06] MEDS: THIAMINE HCL 100 MG TABLET (FP) PO SCH (22:08)
[2018-09-06] MEDS: chlordiazePOXIDE HCL 25 MG CAPSULE PO SCH (22:08)
[2018-09-06] MEDS: LORATADINE 10 MG TABLET PO SCH (22:08)
[2018-09-07 01:40] LABS: URINE APPEARANCE SLCLOUDY; URINE BILIRUBIN NEGATIVE (<2.0 mg/dL); URINE COLOR DKYELLOW; URINE GLUCOSE (UA) NEGATIVE (NEGATIVE); URINE KETONE NEGATIVE (NEGATIVE); URINE LEUK ESTERASE NEGATIVE (NEGATIVE); URINE NITRITE NEGATIVE (NEGATIVE); URINE PROTEIN 1+ (NEGATIVE)
[2018-09-07 01:43] LABS: CALCIUM OXALATE CRYSTALS MODERATE /hpf (NONE SEEN); EPI CELLS MODERATE /HPF (FEW); URINE MUCUS MODERATE
[2018-09-07] MEDS: chlordiazePOXIDE HCL 25 MG CAPSULE PO SCH ×4 (06:01→23:48)
--- NOTE | 2018-09-07 07:47 | CONSULT ---
[facility] Psychiatric Consult - Data Date of interview: 09/07/18 Admission source: [facility] Identifying data: This is a 57 years old female, single mother of four, domiciled, on SSI support, with history of Bipolar Disorder, psychiatric hospitalization history, with multiple medical problems, with hisory of nicotine, alcohol, heroin (nasal), crack /cocaine, marijuana dependence is here reporting withdrawal symptoms and seeking for detox. This is one of multiple admissions, last detox at [facility] 11/18/16 -11/23/16. Substance Abuse History: Smoking Cessation. Smoking history: Current every day smoker. Have you smoked in the past 12 months: Yes. Aproximately how many cigarettes per day: 20. Cigars Per Day: 0. Hx Chewing Tobacco Use: No. Initiated information on smoking cessation: Yes. 'Breaking Loose' booklet given : 09/06/18. - Substance & Tx. History. Hx Alcohol Use: No. Hx Substance Use: Yes. Substance Use Type: Cocaine, Marijuana, Opiates. Hx Substance Use Treatment: Yes. - Substances Abused. Heroin. Route: Inhalation. Frequency : Daily. Amount used: 4-5 BAGS. Age of first use: 55. Date of Last Use: 09/06. Alcohol. Route: Oral. Frequency: Daily. Amount used: 4 BEERS. Age of first use: 12. Date of Last Use: 09/04/18. Crack. Route: Smoking. Frequency: Daily. Amount used: $100. Age of first use: 23. Date of Last Use: 09/06/18. Marijuana/Hashish. Route: Smoking. Frequency: Daily. Amount used: 1 BAG. Age of first use: 10. Date of Last Use: 09/06/18 Medical History: Weight loss history, Lymphodenopatia history, Asthma, HTN, Liver Cirrhisis history, UII history, Hypercholesterolemia [id number], HepC+, Psychiatric History: Patient reports history of Bipolar Disorder with the most recent psychiatric admission on more then 10 years ago, currently satble on: Trazodone 50mg po qhs. Seroquel 25mg po bid. Debies suicidal, homicidal history. Physical/Sexual Abuse/Trauma History: Denies Additional Comment: Trazodone 50mg po qhs. Seroquel 25mg po bid Mental Status Exam - Mental Status Exam Alert and Oriented to: Person Cognitive Function: Fair Patient Appearance: Unkempt Mood: Apprehensive Affect: Mood Congruent Patient Behavior: Cooperative Speech Pattern: Appropriate Voice Loudness: Mildly Soft/Quiet Thought Process: Circumstantial, Goal Oriented Thought Disorder: Being Controlled Hallucinations: Denies Suicidal Ideation: Denies Homicidal Ideation: Denies Insight/Judgement: Fair Sleep: Difficulty falling asleep Appetite: Weight loss Muscle strength/Tone: Mild Hypotonicity Gait/Station: Shuffling Additional Comments: Trazodone 50mg po qhs. Seroquel 25mg po bid Psychiatric Findings - Problem List ([place] 1, 2,3) (1) Opioid dependence with withdrawal Current Visit: Yes Status: Acute (2) Weight loss, non-intentional Current Visit: Yes Status: Acute (3) Alcohol dependence with uncomplicated withdrawal Current Visit: Yes Status: Chronic (4) Asthma Current Visit: Yes Status: Chronic (5) Cannabis dependence, uncomplicated Current Visit: Yes Status: Chronic (6) HIV (human immunodeficiency virus infection) Current Visit: Yes Status: Chronic Comment: Patient reports non-adherent with Complera, reports has not taken her medication in three months (7) History of cirrhosis of liver Current Visit: Yes Status: Chronic (8) Hypertension Current Visit: Yes Status: Chronic Qualifiers: Hypertension type: essential hypertension Qualified Code(s): I10 - Essential (primary) hypertension (9) Bipolar I disorder Current Visit: No Status: Active (10) Family history of breast cancer Current Visit: No Status: Acute (11) Gastroenteritis Current Visit: No Status: Acute (12) UTI (urinary tract infection) Current Visit: No Status: Acute (13) Human immunodeficiency virus infection Current Visit: No Status: Chronic Comment: update CD4, VL continue Complera; discussed adherence, benefits/goals of tx, safe sex, condom use (14) Hypercholesterolemia Current Visit: No Status: Chronic (15) Knee pain Current Visit: No Status: Chronic Comment: Refer to Orthopedic clinic, begin naproxen (16) Low back pain Current Visit: No Status: Chronic Comment: update xrays, consider mri, will refer ortho/neuro if persistent. (17) Hepatitis C virus Current Visit: No Status: Resolved Comment: tx'd with svr, cont post-tx surveillance, [facility]. - Initial Treatment Plan Initial Treatment Plan: Trazodone 50mg po qhs. Seroquel 25mg po bid
--- NOTE | 2018-09-07 09:52 | EKG ---
Test Reason : Blood Pressure : / mmHG Vent. Rate : 058 BPM Atrial Rate : 058 BPM P-R Int : 150 ms QRS Dur : 106 ms QT Int : 448 ms P-R-T Axes : 068 013 018 degrees QTc Int : 439 ms SINUS BRADYCARDIA MODERATE VOLTAGE CRITERIA FOR LVH, MAY BE NORMAL VARIANT NONSPECIFIC T WAVE ABNORMALITY ABNORMAL ECG WHEN COMPARED WITH ECG OF 09-FEB-2018 10:29, MINIMAL CRITERIA FOR SEPTAL INFARCT ARE NO LONGER PRESENT Confirmed by MYESHA BARON MD ([id number]) on 09/07/2018 9:52:29 AM Referred By: Confirmed By:MYESHA BARON MD
[2018-09-07] MEDS ORDERED: METHADONE HCL 10 MG TABLET (FOR DETOX USE ONLY) PO SCH (10:00)
[2018-09-07 10:26] LABS: HEMATOCRIT 39.9 % (32.4-45.2); HEMOGLOBIN 13.3 GM/dL (10.7-15.3); MCH 31.9 pg (25.7-33.7); MCHC 33.4 g/dl (32.0-36.0); MEAN CELL VOLUME 95.3 fl (80-96); MEAN PLT VOLUME 10.1 fl (7.5-11.1); PLATELET COUNT 149 K/MM3 (134-434); RBC 4.18 M/mm3 (3.60-5.2); WHITE BLOOD COUNT 5.4 K/mm3 (4.0-10.0)
[2018-09-07] MEDS: PRENATAL VITAMINS W/ FOLIC ACID TABLET (FP) PO SCH (10:34)
[2018-09-07] MEDS: NICOTINE 14 MG/24 HOURS TOPICAL PATCH TD SCH (10:35)
[2018-09-07] MEDS: amLODIPine BESYLATE 10 MG TABLET (FP) PO SCH (10:35)
[2018-09-07 11:09] LABS: ALBUMIN 3.4 g/dl (3.4-5.0); ALK PHOS 88 U/L (45-117); ANION GAP 9 MMOL/L (8-16); BILIRUBIN,TOTAL 0.2 mg/dL (0.2-1); BLOOD UREA NITROGEN 10 mg/dL (7-18); CALCIUM 8.8 mg/dL (8.5-10.1); CHLORIDE 106 mmol/L (98-107); CO2 30 mmol/L (21-32); CREATININE 0.7 mg/dL (0.55-1.3); GLUCOSE,RANDOM 96 mg/dL (74-106); SGOT/AST 19 U/L (15-37); SGPT/ALT 17 U/L (13-61); SODIUM 145 mmol/L (136-145); TOT PROT 6.2 g/dl (6.4-8.2)
[2018-09-07 11:15] LABS: POTASSIUM 2.8 mmol/L (3.5-5.1)
[2018-09-07] MEDS ORDERED: PNEUMOC 13-VAL CONJ-DIP CRM/PF 0.5 ML DISP.SYRIN IM ONE (12:00)
[2018-09-07] MEDS ORDERED: FLU VACCINE QUAD 60 MCG/0.5 ML (MDV 18-19) IM ONE (12:00)
[2018-09-07] MEDS: ONDANSETRON *ODT* 4 MG TABLET SL PRN ×2 (13:12→18:45)
[2018-09-07] MEDS: QUEtiapine FUMARATE 25 MG TABLET (FP) PO SCH ×2 (13:14→23:48)
[2018-09-07] MEDS: POTASSIUM CHLORIDE TABS 20 MEQ TABLET.ER (FP) PO SCH ×2 (13:27→23:48)
[2018-09-07] MEDS: LORATADINE 10 MG TABLET PO SCH (13:27)
--- NOTE | 2018-09-07 15:19 | EKG ---
Test Reason : Blood Pressure : / mmHG Vent. Rate : 057 BPM Atrial Rate : 057 BPM P-R Int : 156 ms QRS Dur : 104 ms QT Int : 426 ms P-R-T Axes : 068 023 014 degrees QTc Int : 414 ms SINUS BRADYCARDIA VOLTAGE CRITERIA FOR LEFT VENTRICULAR HYPERTROPHY ABNORMAL ECG WHEN COMPARED WITH ECG OF 06-SEP-2018 21:32, NONSPECIFIC T WAVE ABNORMALITY NO LONGER EVIDENT IN LATERAL LEADS Confirmed by LORAINE ARMSTRONG, MYESHA ([id number]) on 09/07/2018 3:19:24 PM Referred By: Confirmed By:MYESHA BARON MD
--- NOTE | 2018-09-07 15:48 | PN ---
[facility] CIWA - CIWA Score Nausea/Vomitin-Mild Nausea/No Vomiting Muscle Tremors: 3 Anxiety: 1-Mildly Anxious Agitation: 2 Paroxysmal Sweats: 1-Minimal Palms Moist Orientation: 0-Oriented Tacttile Disturbances: 1-Very Mild Itch/Numbness Auditory Disturbances: 0-None Visual Disturbances: 0-None Headache: 1-Very Mild CIWA-Ar Total Score: 10 [facility] COWS - Scale Resting Pulse: 0= [place] 80 or Below Sweatin= Chills/Flushing Restless Observation: 1= Difficult to Sit Still Pupil Size: 0= Normal to Room Light Bone or Joint Aches: 1= Mild Discomfort Runny Nose/ Eye Tearin= Nasal Congestion GI Upset > 30mins: 2= Nausea/Diarrhea Tremor Observation of Outstretched Hands: 1= Tremor [place], Not Seen Yawning Observation: 1= 1-2x During Session Anxiety or Irritability: 1=Feels Anxious/Irritable Goose Flesh Skin: 0=Smooth Skin COWS Score: 9 S Progress Note (SOAP) Subjective: nausea sweat tremor body aches joints pain muscle cramp anxiety Objective: 09/07/18 15:46 Vital Signs Temperature 98.1 F 09/07/18 14:00 Pulse Rate 81 09/07/18 14:00 Respiratory Rate 116 H 09/07/18 14:00 Blood Pressure 116/58 L 09/07/18 14:00 O2 Sat by Pulse Oximetry (%) Laboratory Tests 09/06/18 09/07/18 09/07/18 23:00 07:00 07:00 WBC 5.4 RBC 4.18 Hgb 13.3 Hct 39.9 MCV 95.3 MCH 31.9 MCHC 33.4 RDW 13.0 Plt Count 149 MPV 10.1 Sodium 145 Potassium 2.8 L* Chloride 106 Carbon Dioxide 30 Anion Gap 9 BUN 10 Creatinine 0.7 Creat Clearance w eGFR > 60 Random Glucose 96 Calcium 8.8 Total Bilirubin 0.2 AST 19 ALT 17 Alkaline Phosphatase 88 Total Protein 6.2 L Albumin 3.4 Urine Color Dkyellow Urine Appearance Slcloudy Urine pH 6.0 Ur Specific [place] 1.015 Urine Protein 1+ H Urine Glucose (UA) Negative Urine Ketones Negative Urine Blood Negative Urine Nitrite Negative Urine Bilirubin Negative Urine Urobilinogen 2.0 H Ur Leukocyte Esterase Negative Urine WBC (Auto) 3 Urine RBC (Auto) 3 Ur Epithelial Cells Moderate Calcium Oxalate Crystal Moderate Urine Mucus Moderate RPR Titer 09/07/18 07:00 WBC RBC Hgb Hct MCV MCH MCHC RDW Plt Count MPV Sodium Potassium Chloride Carbon Dioxide Anion Gap BUN Creatinine Creat Clearance w eGFR Random Glucose Calcium Total Bilirubin AST ALT Alkaline Phosphatase Total Protein Albumin Urine Color Urine Appearance Urine pH Ur Specific [place] Urine Protein Urine Glucose (UA) Urine Ketones Urine Blood Urine Nitrite Urine Bilirubin Urine Urobilinogen Ur Leukocyte Esterase Urine WBC (Auto) Urine RBC (Auto) Ur Epithelial Cells Calcium Oxalate Crystal Urine Mucus RPR Titer Nonreactive lab noted low K+ ekg repeat no significant change Assessment: 09/07/18 15:46 withdrawal sx low K+ nausea low energy Plan: continue detox zofrain prn K+ supplement repeat K+ tolerate K+ supplement well zofrain effective
[2018-09-07] MEDS ORDERED: traZODone HCL 50 MG TABLET (FP) PO PRN (22:00)
[2018-09-07] MEDS: THIAMINE HCL 100 MG TABLET (FP) PO SCH (23:48)
[2018-09-08] MEDS: chlordiazePOXIDE HCL 25 MG CAPSULE PO SCH ×3 (05:53→17:44)
--- NOTE | 2018-09-08 08:39 | PN ---
[facility] CIWA - CIWA Score Nausea/Vomitin-No Nausea/No Vomiting Muscle Tremors: 2 Anxiety: 1-Mildly Anxious Agitation: 1-Slight > Activity Paroxysmal Sweats: 1-Minimal Palms Moist Orientation: 0-Oriented Tacttile Disturbances: 1-Very Mild Itch/Numbness Auditory Disturbances: 1-Very Mild Visual Disturbances: 0-None Headache: 1-Very Mild CIWA-Ar Total Score: 8 BHS COWS - Scale Resting Pulse: 0= [place] 80 or Below Sweatin= Chills/Flushing Restless Observation: 1= Difficult to Sit Still Pupil Size: 0= Normal to Room Light Bone or Joint Aches: 1= Mild Discomfort Runny Nose/ Eye Tearin= Nasal Congestion GI Upset > 30mins: 1= Stomach Cramp Tremor Observation of Outstretched Hands: 1= Tremor [place], Not Seen Yawning Observation: 1= 1-2x During Session Anxiety or Irritability: 1=Feels Anxious/Irritable Goose Flesh Skin: 0=Smooth Skin COWS Score: 8 [facility] Progress Note (SOAP) Subjective: patient brought her own ART medication with her upon admission, pharmacist verified and can be administered ART medication can be administered sweat tremor restlessness anxiety body ache joints pain Objective: 09/08/18 14:54 Vital Signs Temperature 98.2 F 09/08/18 13:41 Pulse Rate 65 09/08/18 13:41 Respiratory Rate 17 09/08/18 13:41 Blood Pressure 124/73 09/08/18 13:41 O2 Sat by Pulse Oximetry (%) Laboratory Last Values WBC 5.4 K/mm3 (4.0-10.0) 09/07/18 07:00 RBC 4.18 M/mm3 (3.60-5.2) 09/07/18 07:00 Hgb 13.3 GM/dL (10.7-15.3) 09/07/18 07:00 Hct 39.9 % (32.4-45.2) 09/07/18 07:00 MCV 95.3 fl (80-96) 09/07/18 07:00 MCH 31.9 pg (25.7-33.7) 09/07/18 07:00 MCHC 33.4 g/dl (32.0-36.0) 09/07/18 07:00 RDW 13.0 % (11.6-15.6) 09/07/18 07:00 Plt Count 149 K/MM3 (134-434) 09/07/18 07:00 MPV 10.1 fl (7.5-11.1) 09/07/18 07:00 Sodium 145 mmol/L (136-145) 09/07/18 07:00 Potassium 3.4 mmol/L (3.5-5.1) L 09/08/18 07:00 Chloride 106 mmol/L (98-107) 09/07/18 07:00 Carbon Dioxide 30 mmol/L (21-32) 09/07/18 07:00 Anion Gap 9 MMOL/L (8-16) 09/07/18 07:00 BUN 10 mg/dL (7-18) 09/07/18 07:00 Creatinine 0.7 mg/dL (0.55-1.3) 09/07/18 07:00 Creat Clearance w eGFR > 60 (>60) 09/07/18 07:00 Random Glucose 96 mg/dL (74-106) 09/07/18 07:00 Calcium 8.8 mg/dL (8.5-10.1) 09/07/18 07:00 Total Bilirubin 0.2 mg/dL (0.2-1) 09/07/18 07:00 AST 19 U/L (15-37) 09/07/18 07:00 ALT 17 U/L (13-61) 09/07/18 07:00 Alkaline Phosphatase 88 U/L (45-117) 09/07/18 07:00 Total Protein 6.2 g/dl (6.4-8.2) L 09/07/18 07:00 Albumin 3.4 g/dl (3.4-5.0) 09/07/18 07:00 Urine Color Dkyellow 09/06/18 23:00 Urine Appearance Slcloudy 09/06/18 23:00 Urine pH 6.0 (5.0-8.0) 09/06/18 23:00 Ur Specific [place] 1.015 (1.010-1.035) 09/06/18 23:00 Urine Protein 1+ (NEGATIVE) H 09/06/18 23:00 Urine Glucose (UA) Negative (NEGATIVE) 09/06/18 23:00 Urine Ketones Negative (NEGATIVE) 09/06/18 23:00 Urine Blood Negative (NEGATIVE) 09/06/18 23:00 Urine Nitrite Negative (NEGATIVE) 09/06/18 23:00 Urine Bilirubin Negative (<2.0 mg/dL) 09/06/18 23:00 Urine Urobilinogen 2.0 mg/dL (0.2-1.0) H 09/06/18 23:00 Ur Leukocyte Esterase Negative (NEGATIVE) 09/06/18 23:00 Urine WBC (Auto) 3 /hpf (3-5) 09/06/18 23:00 Urine RBC (Auto) 3 /hpf (0-3) 09/06/18 23:00 Ur Epithelial Cells Moderate /HPF (FEW) 09/06/18 23:00 Calcium Oxalate Crystal Moderate /hpf (NONE SEEN) 09/06/18 23:00 Urine Mucus Moderate 09/06/18 23:00 RPR Titer Nonreactive (NONREACTIVE) 09/07/18 07:00 lab noted Assessment: 09/08/18 14:55 withdrawal sx low K+ Plan: continue detox continue K+ repeat K+
[2018-09-08] MEDS: ONDANSETRON *ODT* 4 MG TABLET SL PRN (08:46)
[2018-09-08] MEDS: POTASSIUM CHLORIDE TABS 20 MEQ TABLET.ER (FP) PO SCH ×2 (11:14→22:11)
[2018-09-08] MEDS: QUEtiapine FUMARATE 25 MG TABLET (FP) PO SCH ×2 (11:15→22:10)
[2018-09-08] MEDS: LORATADINE 10 MG TABLET PO SCH (11:15)
[2018-09-08] MEDS: METHADONE HCL 5 MG TABLET (FOR DETOX USE ONLY) PO SCH (11:15)
[2018-09-08] MEDS: amLODIPine BESYLATE 10 MG TABLET (FP) PO SCH (11:16)
[2018-09-08] MEDS: NICOTINE 14 MG/24 HOURS TOPICAL PATCH TD SCH (11:16)
[2018-09-08] MEDS: PRENATAL VITAMINS W/ FOLIC ACID TABLET (FP) PO SCH (11:16)
[2018-09-08] MEDS ORDERED: PNEUMOC 13-VAL CONJ-DIP CRM/PF 0.5 ML DISP.SYRIN IM ONE (12:00)
[2018-09-08] MEDS ORDERED: FLU VACCINE QUAD 60 MCG/0.5 ML (MDV 18-19) IM ONE (12:00)
[2018-09-08] MEDS ORDERED: EMTRICITAB/RILPIVIRINE/TENOFOV 1 EACH TABLET PO ONE (12:05)
[2018-09-08] MEDS: THIAMINE HCL 100 MG TABLET (FP) PO SCH (22:10)
[2018-09-08] MEDS: chlordiazePOXIDE 5 MG CAPSULE PO SCH (22:10)
[2018-09-09] MEDS: chlordiazePOXIDE 5 MG CAPSULE PO SCH ×3 (06:34→17:36)
[2018-09-09] MEDS: ONDANSETRON *ODT* 4 MG TABLET SL PRN (08:58)
[2018-09-09] MEDS ORDERED: TRIMETHOBENZAMIDE HCL 200MG/2ML INJ IM PRN (09:02)
[2018-09-09] MEDS: amLODIPine BESYLATE 10 MG TABLET (FP) PO SCH (10:17)
[2018-09-09] MEDS: POTASSIUM CHLORIDE TABS 20 MEQ TABLET.ER (FP) PO SCH ×2 (10:17→22:39)
[2018-09-09] MEDS: METHADONE HCL 5 MG TABLET (FOR DETOX USE ONLY) PO SCH (10:17)
[2018-09-09] MEDS: PRENATAL VITAMINS W/ FOLIC ACID TABLET (FP) PO SCH (10:17)
[2018-09-09] MEDS: LORATADINE 10 MG TABLET PO SCH (10:18)
[2018-09-09] MEDS: EMTRICITAB/RILPIVIRINE/TENOFOV 1 EACH TABLET PO SCH (10:18)
[2018-09-09] MEDS: QUEtiapine FUMARATE 25 MG TABLET (FP) PO SCH ×2 (10:18→22:38)
[2018-09-09] MEDS: NICOTINE 14 MG/24 HOURS TOPICAL PATCH TD SCH (10:21)
--- NOTE | 2018-09-09 12:17 | PN ---
[facility] Progress Note (SOAP) Subjective: nausea sweats anxiety Objective: 09/09/18 12:16 Vital Signs Temperature 96.5 F L 09/09/18 09:54 Pulse Rate 69 09/09/18 09:54 Respiratory Rate 16 09/09/18 09:54 Blood Pressure 155/77 09/09/18 09:54 O2 Sat by Pulse Oximetry (%) aaox3 ambulating no acute distress Assessment: 09/09/18 12:16 withdrawal sx Plan: continue detox increase fluids kendra montes prn
[2018-09-09] MEDS: chlordiazePOXIDE HCL 10 MG CAPSULE PO SCH (22:38)
[2018-09-09] MEDS: THIAMINE HCL 100 MG TABLET (FP) PO SCH (22:39)
[2018-09-10] MEDS: chlordiazePOXIDE HCL 10 MG CAPSULE PO SCH ×2 (05:49→10:23)
[2018-09-10 10:00] VITALS: BP 130/70; PULSE 65; TEMP 99
[2018-09-10] MEDS ORDERED: METHADONE HCL 10 MG TABLET (FOR DETOX USE ONLY) PO SCH (10:00)
[2018-09-10] MEDS ORDERED: METHADONE HCL 5 MG TABLET PO ONE (10:15)
[2018-09-10] MEDS: PRENATAL VITAMINS W/ FOLIC ACID TABLET (FP) PO SCH (10:22)
[2018-09-10] MEDS: QUEtiapine FUMARATE 25 MG TABLET (FP) PO SCH (10:22)
[2018-09-10] MEDS: POTASSIUM CHLORIDE TABS 20 MEQ TABLET.ER (FP) PO SCH (10:22)
[2018-09-10] MEDS: amLODIPine BESYLATE 10 MG TABLET (FP) PO SCH (10:22)
[2018-09-10] MEDS: LORATADINE 10 MG TABLET PO SCH (10:22)
[2018-09-10] MEDS: EMTRICITAB/RILPIVIRINE/TENOFOV 1 EACH TABLET PO SCH (10:23)
[2018-09-10] MEDS: NICOTINE 14 MG/24 HOURS TOPICAL PATCH TD SCH (10:23)
--- NOTE | 2018-09-10 15:02 | DS ---
[facility] Detox Discharge Summary Admission Date: 09/06/18 Discharge Date: 09/10/18 - History Present History: Opioid Dependence - Physical Exam Results Vital Signs: Vital Signs Temperature 99.0 F 09/10/18 09:59 Pulse Rate 65 09/10/18 09:59 Respiratory Rate 18 09/10/18 09:59 Blood Pressure 130/70 09/10/18 09:59 O2 Sat by Pulse Oximetry (%) Pertinent Admission Physical Exam Findings: PATIENT TOLERATED DETOX WITHOUT ADVERSE EVENT. PATIENT MEDICALLY STABLE AND DENIES SI/HI. PATIENT ENCOURAGED TO ATTEND GROUP MEETINGS TO PREVENT RELAPSE. PATIENT ALSO ENCOURAGED TO FOLLOW UP WITH PCP WITHIN ONE WEEK OF D/C AND TO SEEK MEDICAL ATTENTION IF WITHDRAWAL SYMPTOMS OCCUR. - Treatment Hospital Course: Detox Protocol Followed, Detoxed Safely, Responded well, Discharged Condition Good - Medication Discharge Medications: Ambulatory Orders Albuterol 0.083% Nebulizer Miguelina [Ventolin 0.083% Nebulizer Soln -] 1 amp NEB Q6H PRN #1 box 04/06/18 Amlodipine Besylate 10 mg PO DAILY #30 tablet 04/06/18 Fluticasone Propionate [Flovent Diskus] 50 mcg IH BID #1 blst.w.dev 04/06/18 Mirtazapine 15 mg PO HS #15 tablet 05/25/18 traZODone HCL [Trazodone HCl] 50 mg PO HS PRN #15 tablet 05/25/18 Quetiapine Fumarate [Seroquel -] 25 mg PO BID #60 tablet 09/07/18 traZODone HCL [Desyrel -] 50 mg PO HS #30 tablet MDD 50 09/07/18 Albuterol Sulfate Inhaler - [Ventolin HFA Inhaler -] 2 inh IH Q4H PRN #1 inh 08/18 Emtricitab/Rilpivirine/Tenofov [Complera Tablet -] 1 each PO DAILY #30 tablet - AMA Did Patient Leave Against Medical Advice: No
[2018-09-11] MEDS ORDERED: METHADONE HCL 5 MG TABLET (FOR DETOX USE ONLY) PO SCH (06:00)
== END 2018-09-10 10:47 | disposition home or self-care (01) | DRG 773 ==
LOC: YASAS 12:41 → Y6N 18:03
PROC: HZ2ZZZZ Detoxification Services for Substance Abuse Treatment (ICD-10-PCS; principal; 2018-09-06)
DX: F11.23 Opioid dependence with withdrawal (principal); F10.230 Alcohol dependence with withdrawal, uncomplicated; F14.20 Cocaine dependence, uncomplicated; F12.20 Cannabis dependence, uncomplicated; F17.210 Nicotine dependence, cigarettes, uncomplicated; F31.9 Bipolar disorder, unspecified; Z21 Asymptomatic human immunodeficiency virus [HIV] infection status; E87.6 Hypokalemia; E78.00 Pure hypercholesterolemia, unspecified; I10 Essential (primary) hypertension; J45.909 Unspecified asthma, uncomplicated; N39.0 Urinary tract infection, site not specified; K52.9 Noninfective gastroenteritis and colitis, unspecified; K74.60 Unspecified cirrhosis of liver; B18.2 Chronic viral hepatitis C; M54.5 Low back pain; M25.569 Pain in unspecified knee; R11.2 Nausea with vomiting, unspecified; K08.89 Other specified disorders of teeth and supporting structures; R63.4 Abnormal weight loss; Z68.1 Body mass index [BMI] 19.9 or less, adult
CPT/HCPCS: 36415; 80053; 81003; 81015; 84132; 85027; 86593; 90688; 93005; 93010; G0008; Q0162

== ENCOUNTER 2018-09-12 08:51 | Inpatient (IN) | payer OTHER ==
[2018-09-12 09:24] VITALS: BMI 19.4
--- NOTE | 2018-09-12 09:37 | HP ---
[facility] Rehab Assess/Revision - Admission History Admitted to Rehab from: [address] Date of Admission to Rehab: 09/12/18 - Vital signs Vital Signs: Vital Signs Period Temp Pulse Resp BP Sys/Cole Pulse Ox Last 24 Hr 97.5 F 92 18 103/86 - Findings Detox History & Physical reviewed: Yes Concur with findings: Yes Comments/Additional Findings: 57 years old female with heroin,ccoaine,marijuana and alcohol dependence. admitted in 6 n detox from 09/06/18 to 09/10/18,. also has hiv,asthma,bipolar disorder. for rehab as protocol Inpatient Rehab Admission - Initial Determination Are CD services needed?: Yes Free of communicable disease: Yes Not in need of hospitalization: Yes - Rehab Admission Criteria Previous failed treatment: Yes Poor recovery environment: Yes Comorbidities: Yes Lacks judgement: No Patient is meeting Inpatient Rehab admission criteria:: Yes
[2018-09-12] MEDS ORDERED: P-EPHED 60MG/TRIPROLIDI 2.5MG TABLET PO PRN (09:40)
[2018-09-12] MEDS ORDERED: MAG HYDROX/AL HYDROX/SIMETH 30 ML UNIT-DOSE CUP PO PRN (09:40)
[2018-09-12] MEDS ORDERED: MAGNESIUM HYDROX 2400MG/30ML ORAL SUSPENSION 30 ML CUP PO PRN (09:40)
[2018-09-12] MEDS ORDERED: LOPERAMIDE HCL 2 MG CAPSULE PO PRN (09:40)
[2018-09-12] MEDS ORDERED: MAGNESIUM CITRATE 300 ML BOTTLE PO PRN (09:40)
[2018-09-12] MEDS: PRENATAL VITAMINS W/ FOLIC ACID TABLET (FP) PO SCH (12:22)
[2018-09-12] MEDS: IBUPROFEN 400 MG TABLET (FP) PO PRN (12:22)
[2018-09-12] MEDS ORDERED: ALBUTEROL SO4 8 GM HFA INHALER IH PRN (12:32)
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
[2018-09-12] MEDS: amLODIPine BESYLATE 10 MG TABLET (FP) PO SCH (14:18)
[2018-09-12] MEDS: BUDESONIDE/FORMETEROL FUMARATE 80/4.5 mcg INHALER IH SCH (21:30)
[2018-09-12] MEDS: traZODone HCL 50 MG TABLET (FP) PO SCH (21:30)
[2018-09-12] MEDS: QUEtiapine FUMARATE 25 MG TABLET (FP) PO SCH (21:30)
[2018-09-12] MEDS: THIAMINE HCL 100 MG TABLET (FP) PO SCH (21:30)
[2018-09-12] MEDS ORDERED: MELATONIN 5 MG TABLETS PO PRN (22:00)
[2018-09-13] MEDS: amLODIPine BESYLATE 10 MG TABLET (FP) PO SCH (09:28)
[2018-09-13] MEDS: PRENATAL VITAMINS W/ FOLIC ACID TABLET (FP) PO SCH (09:28)
[2018-09-13] MEDS: QUEtiapine FUMARATE 25 MG TABLET (FP) PO SCH ×2 (09:28→21:16)
[2018-09-13] MEDS: EMTRICITAB/RILPIVIRINE/TENOFOV 1 EACH TABLET PO SCH (09:28)
[2018-09-13] MEDS: BUDESONIDE/FORMETEROL FUMARATE 80/4.5 mcg INHALER IH SCH ×2 (09:29→21:16)
[2018-09-13] MEDS: hydrOXYzine PAMOATE 25 MG CAPSULE (FP) PO PRN ×2 (11:44→19:17)
[2018-09-13] MEDS ORDERED: COLLOIDAL OATMEAL 1 BAR EACH TP PRN (12:43)
[2018-09-13] MEDS: traZODone HCL 50 MG TABLET (FP) PO SCH (21:16)
[2018-09-13] MEDS: THIAMINE HCL 100 MG TABLET (FP) PO SCH (21:16)
[2018-09-14] MEDS ORDERED: PT OWN MED DRAWER 7, Y5N ONE (08:51)
[2018-09-14] MEDS: EMTRICITAB/RILPIVIRINE/TENOFOV 1 EACH TABLET PO SCH (09:46)
[2018-09-14] MEDS: PRENATAL VITAMINS W/ FOLIC ACID TABLET (FP) PO SCH (09:46)
[2018-09-14] MEDS: BUDESONIDE/FORMETEROL FUMARATE 80/4.5 mcg INHALER IH SCH ×2 (09:47→21:08)
[2018-09-14] MEDS: QUEtiapine FUMARATE 25 MG TABLET (FP) PO SCH ×2 (09:47→21:08)
[2018-09-14] MEDS: amLODIPine BESYLATE 10 MG TABLET (FP) PO SCH (09:49)
[2018-09-14] MEDS: hydrOXYzine PAMOATE 25 MG CAPSULE (FP) PO PRN (14:41)
[2018-09-14] MEDS: THIAMINE HCL 100 MG TABLET (FP) PO SCH (21:07)
[2018-09-14] MEDS: traZODone HCL 50 MG TABLET (FP) PO SCH (21:08)
[2018-09-15] MEDS: EMTRICITAB/RILPIVIRINE/TENOFOV 1 EACH TABLET PO SCH (10:09)
[2018-09-15] MEDS: hydrOXYzine PAMOATE 25 MG CAPSULE (FP) PO PRN (10:10)
[2018-09-15] MEDS: amLODIPine BESYLATE 10 MG TABLET (FP) PO SCH (10:10)
[2018-09-15] MEDS: PRENATAL VITAMINS W/ FOLIC ACID TABLET (FP) PO SCH (10:10)
[2018-09-15] MEDS: BUDESONIDE/FORMETEROL FUMARATE 80/4.5 mcg INHALER IH SCH ×2 (10:10→21:39)
[2018-09-15] MEDS: QUEtiapine FUMARATE 25 MG TABLET (FP) PO SCH ×2 (10:10→21:38)
[2018-09-15] MEDS: NICOTINE POLACRILEX 2 MG GUM BUC PRN (10:11)
[2018-09-15] MEDS: IBUPROFEN 400 MG TABLET (FP) PO PRN (15:36)
[2018-09-15] MEDS: THIAMINE HCL 100 MG TABLET (FP) PO SCH (21:38)
[2018-09-15] MEDS: traZODone HCL 50 MG TABLET (FP) PO SCH (21:38)
[2018-09-16] MEDS ORDERED: PT OWN MED DRAWER 7, Y5N ONE (09:11)
[2018-09-16] MEDS: amLODIPine BESYLATE 10 MG TABLET (FP) PO SCH (10:59)
[2018-09-16] MEDS: EMTRICITAB/RILPIVIRINE/TENOFOV 1 EACH TABLET PO SCH (10:59)
[2018-09-16] MEDS: PRENATAL VITAMINS W/ FOLIC ACID TABLET (FP) PO SCH (10:59)
[2018-09-16] MEDS: QUEtiapine FUMARATE 25 MG TABLET (FP) PO SCH ×2 (10:59→21:39)
[2018-09-16] MEDS: BUDESONIDE/FORMETEROL FUMARATE 80/4.5 mcg INHALER IH SCH ×2 (11:00→21:40)
[2018-09-16] MEDS: hydrOXYzine PAMOATE 25 MG CAPSULE (FP) PO PRN (21:39)
[2018-09-16] MEDS: THIAMINE HCL 100 MG TABLET (FP) PO SCH (21:39)
[2018-09-16] MEDS: traZODone HCL 50 MG TABLET (FP) PO SCH (21:39)
[2018-09-17] MEDS: hydrOXYzine PAMOATE 25 MG CAPSULE (FP) PO PRN (01:29)
[2018-09-17] MEDS: ACETAMINOPHEN 325 MG TABLET (FP) PO PRN (07:10)
[2018-09-17] MEDS ORDERED: PT OWN MED DRAWER 7, Y5N ONE (09:23)
[2018-09-17] MEDS: QUEtiapine FUMARATE 25 MG TABLET (FP) PO SCH ×2 (10:41→21:24)
[2018-09-17] MEDS: PRENATAL VITAMINS W/ FOLIC ACID TABLET (FP) PO SCH (10:41)
[2018-09-17] MEDS: amLODIPine BESYLATE 10 MG TABLET (FP) PO SCH (10:41)
[2018-09-17] MEDS: BUDESONIDE/FORMETEROL FUMARATE 80/4.5 mcg INHALER IH SCH ×2 (10:42→21:59)
[2018-09-17] MEDS: EMTRICITAB/RILPIVIRINE/TENOFOV 1 EACH TABLET PO SCH (10:42)
[2018-09-17] MEDS: THIAMINE HCL 100 MG TABLET (FP) PO SCH (21:24)
[2018-09-17] MEDS: traZODone HCL 50 MG TABLET (FP) PO SCH (21:24)
[2018-09-18] MEDS ORDERED: PT OWN MED DRAWER 7, Y5N ONE (09:27)
[2018-09-18] MEDS: QUEtiapine FUMARATE 25 MG TABLET (FP) PO SCH ×2 (10:51→21:20)
[2018-09-18] MEDS: amLODIPine BESYLATE 10 MG TABLET (FP) PO SCH (10:51)
[2018-09-18] MEDS: EMTRICITAB/RILPIVIRINE/TENOFOV 1 EACH TABLET PO SCH (10:51)
[2018-09-18] MEDS: PRENATAL VITAMINS W/ FOLIC ACID TABLET (FP) PO SCH (10:51)
[2018-09-18] MEDS: BUDESONIDE/FORMETEROL FUMARATE 80/4.5 mcg INHALER IH SCH ×2 (10:52→21:20)
[2018-09-18] MEDS: THIAMINE HCL 100 MG TABLET (FP) PO SCH (21:20)
[2018-09-18] MEDS: traZODone HCL 50 MG TABLET (FP) PO SCH (21:20)
[2018-09-18] MEDS: hydrOXYzine PAMOATE 25 MG CAPSULE (FP) PO PRN (21:21)
[2018-09-19] MEDS ORDERED: PT OWN MED DRAWER 7, Y5N ONE (09:05)
[2018-09-19] MEDS: BUDESONIDE/FORMETEROL FUMARATE 80/4.5 mcg INHALER IH SCH ×2 (10:45→21:56)
[2018-09-19] MEDS: PRENATAL VITAMINS W/ FOLIC ACID TABLET (FP) PO SCH (10:45)
[2018-09-19] MEDS: EMTRICITAB/RILPIVIRINE/TENOFOV 1 EACH TABLET PO SCH (10:45)
[2018-09-19] MEDS: amLODIPine BESYLATE 10 MG TABLET (FP) PO SCH (10:46)
[2018-09-19] MEDS: QUEtiapine FUMARATE 25 MG TABLET (FP) PO SCH ×2 (10:46→21:57)
[2018-09-19] MEDS: hydrOXYzine PAMOATE 25 MG CAPSULE (FP) PO PRN ×2 (10:47→21:58)
[2018-09-19] MEDS: THIAMINE HCL 100 MG TABLET (FP) PO SCH (21:56)
[2018-09-19] MEDS: traZODone HCL 50 MG TABLET (FP) PO SCH (21:57)
[2018-09-20] MEDS: hydrOXYzine PAMOATE 25 MG CAPSULE (FP) PO PRN ×3 (03:04→21:47)
[2018-09-20] MEDS ORDERED: PT OWN MED DRAWER 7, Y5N ONE (08:44)
[2018-09-20] MEDS: QUEtiapine FUMARATE 25 MG TABLET (FP) PO SCH ×2 (10:46→21:47)
[2018-09-20] MEDS: EMTRICITAB/RILPIVIRINE/TENOFOV 1 EACH TABLET PO SCH (10:46)
[2018-09-20] MEDS: PRENATAL VITAMINS W/ FOLIC ACID TABLET (FP) PO SCH (10:46)
[2018-09-20] MEDS: amLODIPine BESYLATE 10 MG TABLET (FP) PO SCH (10:46)
[2018-09-20] MEDS: NICOTINE POLACRILEX 2 MG GUM BUC PRN (10:47)
[2018-09-20] MEDS: BUDESONIDE/FORMETEROL FUMARATE 80/4.5 mcg INHALER IH SCH ×2 (10:47→21:48)
[2018-09-20] MEDS: ACETAMINOPHEN 325 MG TABLET (FP) PO PRN (12:55)
[2018-09-20] MEDS: THIAMINE HCL 100 MG TABLET (FP) PO SCH (21:47)
[2018-09-20] MEDS: traZODone HCL 50 MG TABLET (FP) PO SCH (21:47)
[2018-09-21] MEDS ORDERED: PT OWN MED DRAWER 7, Y5N ONE ×3 (08:48→20:36)
[2018-09-21] MEDS: EMTRICITAB/RILPIVIRINE/TENOFOV 1 EACH TABLET PO SCH (09:27)
[2018-09-21] MEDS: PRENATAL VITAMINS W/ FOLIC ACID TABLET (FP) PO SCH (09:27)
[2018-09-21] MEDS: amLODIPine BESYLATE 10 MG TABLET (FP) PO SCH (09:27)
[2018-09-21] MEDS: BUDESONIDE/FORMETEROL FUMARATE 80/4.5 mcg INHALER IH SCH ×2 (09:27→21:58)
[2018-09-21] MEDS: QUEtiapine FUMARATE 25 MG TABLET (FP) PO SCH ×2 (09:27→21:59)
[2018-09-21] MEDS: ACETAMINOPHEN 325 MG TABLET (FP) PO PRN (09:28)
[2018-09-21] MEDS: NICOTINE POLACRILEX 2 MG GUM BUC PRN (09:29)
--- NOTE | 2018-09-21 16:03 | PN ---
Psychiatric Progress Note Vital Signs: Vital Signs Period Temp Pulse Resp BP Sys/Cole Pulse Ox Last 24 Hr 97.8 F 78-80 16-19 113-121/75-76 Date of Session: 09/21/18 Chief Complaint:: " I still cannot sleep at night ". HPI: Patient needed to see the psychiatrist to discuss medication for insomnia. Ms Jaimes is doing fine except for sleep disturbances. ROS: Unremarkable. Current Medications: Active Medications Generic Name Dose Route Start Last Admin Trade Name Freq PRN Reason Stop Dose Admin Acetaminophen 650 mg 09/12/18 09:40 09/21/18 09:28 Tylenol - PO 650 mg Q4H PRN Administration FEVER Al Hydroxide/Mg Hydroxide 30 ml 09/12/18 09:40 Mylanta Oral Suspension - PO Q6H PRN DYSPEPSIA Albuterol Sulfate 2 puff 09/12/18 12:32 Ventolin Hfa Inhaler - IH Q4H PRN ASTHMA Amlodipine Besylate 10 mg 09/12/18 14:00 09/21/18 09:27 Norvasc - PO 10 mg DAILY LONI Administration Budesonide/Formoterol Fumarate 2 puff 09/12/18 22:00 09/21/18 09:27 Symbicort 80/4.5mcg - IH 2 puff BID LONI Administration Emtricitabine/Rilpivirine/Tenofovir 1 each 09/13/18 10:00 09/21/18 09:27 Complera - PO 1 each DAILY LONI Administration Eucalyptus/Menthol/Phenol/Sorbitol 1 each 09/12/18 09:40 Cepastat Lozenge - MM Q4H PRN SORE THROAT Guaifenesin 10 ml 09/12/18 09:40 Robitussin Dm - PO Q6H PRN COUGH Hydroxyzine Pamoate 25 mg 09/12/18 09:40 09/20/18 21:47 Vistaril - PO 25 mg Q4H PRN Administration AGITATION Ibuprofen 400 mg 09/12/18 09:40 09/15/18 15:36 Motrin - PO 400 mg Q6H PRN Administration Pain Level 4-6 Loperamide HCl 4 mg 09/12/18 09:40 09/14/18 04:30 Imodium - PO 4 mg Q6H PRN Administration DIARRHEA Magnesium Citrate 300 ml 09/12/18 09:40 Citroma - PO Q48H PRN CONSTIPATION Magnesium Hydroxide 30 ml 09/12/18 09:40 Milk Of Magnesia - PO DAILY PRN CONSTIPATION Melatonin 5 mg 09/12/18 22:00 09/12/18 21:32 Melatonin PO 5 mg HS PRN Administration INSOMNIA Nicotine Polacrilex 2 mg 09/12/18 09:40 09/21/18 09:29 Nicorette Gum - BUC 2 mg Q2H PRN Administration NICOTINE REPLACEMENT RX Multivit/Folic Acid/Iron 1 tab 09/12/18 10:00 09/21/18 09:27 Vitamins (Sjr) - PO 1 tab DAILY LONI Administration Pseudoephedrine/Triprolidine 1 combo 09/12/18 09:40 Actifed - PO TID PRN NASAL CONGESTION Quetiapine Fumarate 25 mg 09/12/18 22:00 09/21/18 09:27 Seroquel - PO 25 mg BID LONI Administration Thiamine HCl 100 mg 09/12/18 22:00 09/20/18 21:47 Vitamin B1 - PO 100 mg HS LONI Administration Trazodone HCl 50 mg 09/12/18 22:00 09/20/18 21:47 Desyrel - PO 50 mg HS LONI Administration Medication(s) Change(s): Trazodone is raised to 75 mg po hs. Discussed with patient. Made aware of side effects/benefits. Ms Jaimes is in agreement with this plan of care. Current Side Effect: No Lab tests ordered: No Lab tests reviewed: Yes Provider note:: Chart reviewed. Met with the patient. Dr Mar's note : read. Patient reports good progress with the exception of insomnia. She approached staff with request for an increase of medication dosage. Sleep hygiene discussed with the patient. Agrees to 75 mg of trazodone at bedtime. Baseline mental status. Total face to face time:: 25 Mental Status Exam - Mental Status Exam Alert and Oriented to: Time, Place, Person Cognitive Function: Good Patient Appearance: Well Groomed Mood: Hopeful, Euthymic Affect: Appropriate, Normal Range Patient Behavior: Cooperative Speech Pattern: Clear, Appropriate Voice Loudness: Normal Thought Process: Intact, Goal Oriented Thought Disorder: Not Present Hallucinations: Denies Suicidal Ideation: Denies Homicidal Ideation: Denies Insight/Judgement: Good Sleep: Difficulty falling asleep Appetite: Good Muscle strength/Tone: Normal Gait/Station: Normal Psychiatric Treatment Plan - Problem List (1) Cannabis dependence Current Visit: Yes Comment: . (2) Alcohol dependence Current Visit: Yes Comment: . (3) Cocaine dependence Current Visit: Yes Comment: . (4) Heroin dependence Current Visit: Yes Comment: . (5) Insomnia Current Visit: Yes Comment: .
[2018-09-21] MEDS: traZODone HCL 50 MG TABLET (FP) PO SCH (21:58)
[2018-09-21] MEDS: THIAMINE HCL 100 MG TABLET (FP) PO SCH (21:59)
[2018-09-22] MEDS ORDERED: PT OWN MED DRAWER 7, Y5N ONE ×2 (08:59→20:32)
[2018-09-22] MEDS: EMTRICITAB/RILPIVIRINE/TENOFOV 1 EACH TABLET PO SCH (10:44)
[2018-09-22] MEDS: PRENATAL VITAMINS W/ FOLIC ACID TABLET (FP) PO SCH (10:44)
[2018-09-22] MEDS: amLODIPine BESYLATE 10 MG TABLET (FP) PO SCH (10:45)
[2018-09-22] MEDS: QUEtiapine FUMARATE 25 MG TABLET (FP) PO SCH ×2 (10:45→21:43)
[2018-09-22] MEDS: BUDESONIDE/FORMETEROL FUMARATE 80/4.5 mcg INHALER IH SCH ×2 (10:46→21:44)
[2018-09-22] MEDS: NICOTINE POLACRILEX 2 MG GUM BUC PRN ×2 (10:46→18:25)
[2018-09-22] MEDS: hydrOXYzine PAMOATE 25 MG CAPSULE (FP) PO PRN ×2 (12:24→21:45)
[2018-09-22] MEDS: THIAMINE HCL 100 MG TABLET (FP) PO SCH (21:43)
[2018-09-22] MEDS: traZODone HCL 50 MG TABLET (FP) PO SCH (21:44)
[2018-09-23] MEDS: PRENATAL VITAMINS W/ FOLIC ACID TABLET (FP) PO SCH (10:34)
[2018-09-23] MEDS: amLODIPine BESYLATE 10 MG TABLET (FP) PO SCH (10:34)
[2018-09-23] MEDS: EMTRICITAB/RILPIVIRINE/TENOFOV 1 EACH TABLET PO SCH (10:34)
[2018-09-23] MEDS: QUEtiapine FUMARATE 25 MG TABLET (FP) PO SCH ×2 (10:34→21:30)
[2018-09-23] MEDS: BUDESONIDE/FORMETEROL FUMARATE 80/4.5 mcg INHALER IH SCH ×2 (10:34→21:32)
[2018-09-23] MEDS: NICOTINE POLACRILEX 2 MG GUM BUC PRN ×2 (10:35→21:32)
--- NOTE | 2018-09-23 17:52 | PN ---
Psychiatric Progress Note Vital Signs: Vital Signs Period Temp Pulse Resp BP Sys/Cole Pulse Ox Last 24 Hr 80-86 16-18 122-132/77-82 Date of Session: 09/23/18 Chief Complaint:: " I still can't sleep." HPI: Patient admitted to for heroin,cocaine, marijuana, and alcohol dependence. ROS: Unremarkable Current Medications: Active Medications Generic Name Dose Route Start Last Admin Trade Name Freq PRN Reason Stop Dose Admin Acetaminophen 650 mg 09/12/18 09:40 09/21/18 09:28 Tylenol - PO 650 mg Q4H PRN Administration FEVER Al Hydroxide/Mg Hydroxide 30 ml 09/12/18 09:40 Mylanta Oral Suspension - PO Q6H PRN DYSPEPSIA Albuterol Sulfate 2 puff 09/12/18 12:32 Ventolin Hfa Inhaler - IH Q4H PRN ASTHMA Amlodipine Besylate 10 mg 09/12/18 14:00 09/23/18 10:34 Norvasc - PO 10 mg DAILY LONI Administration Budesonide/Formoterol Fumarate 2 puff 09/12/18 22:00 09/23/18 10:34 Symbicort 80/4.5mcg - IH 2 puff BID LONI Administration Emtricitabine/Rilpivirine/Tenofovir 1 each 09/13/18 10:00 09/23/18 10:34 Complera - PO 1 each DAILY LONI Administration Eucalyptus/Menthol/Phenol/Sorbitol 1 each 09/12/18 09:40 Cepastat Lozenge - MM Q4H PRN SORE THROAT Guaifenesin 10 ml 09/12/18 09:40 Robitussin Dm - PO Q6H PRN COUGH Hydroxyzine Pamoate 25 mg 09/12/18 09:40 09/22/18 21:45 Vistaril - PO 25 mg Q4H PRN Administration AGITATION Ibuprofen 400 mg 09/12/18 09:40 09/15/18 15:36 Motrin - PO 400 mg Q6H PRN Administration Pain Level 4-6 Loperamide HCl 4 mg 09/12/18 09:40 09/14/18 04:30 Imodium - PO 4 mg Q6H PRN Administration DIARRHEA Magnesium Citrate 300 ml 09/12/18 09:40 Citroma - PO Q48H PRN CONSTIPATION Magnesium Hydroxide 30 ml 09/12/18 09:40 Milk Of Magnesia - PO DAILY PRN CONSTIPATION Nicotine Polacrilex 2 mg 09/12/18 09:40 09/23/18 10:35 Nicorette Gum - BUC 2 mg Q2H PRN Administration NICOTINE REPLACEMENT RX Multivit/Folic Acid/Iron 1 tab 09/12/18 10:00 09/23/18 10:34 Vitamins (Sjr) - PO 1 tab DAILY LONI Administration Pseudoephedrine/Triprolidine 1 combo 09/12/18 09:40 Actifed - PO TID PRN NASAL CONGESTION Quetiapine Fumarate 25 mg 09/12/18 22:00 09/23/18 10:34 Seroquel - PO 25 mg BID LONI Administration Thiamine HCl 100 mg 09/12/18 22:00 09/22/18 21:43 Vitamin B1 - PO 100 mg HS LONI Administration Trazodone HCl 75 mg 09/21/18 22:00 09/22/18 21:44 Desyrel - PO 75 mg HS LONI Administration Medication(s) Change(s): Yes. Trazodone increased to 100mg. Current Side Effect: No Lab tests ordered: No Lab tests reviewed: Yes Provider note:: Patient reports poor sleep. Dr. Oro and Dr. núñez note read and appreciated. Patient is currently accepting trazodone 75mg qhs + seroquel 50mg BID. Will increase Trazodone dose to 100mg. Psychoeducation and sleep hygiene provided. Total face to face time:: 25 Mental Status Exam - Mental Status Exam Alert and Oriented to: Time, Place, Person Cognitive Function: Good Patient Appearance: Well Groomed Mood: Euthymic Affect: Appropriate Patient Behavior: Appropriate, Cooperative Speech Pattern: Clear, Appropriate Voice Loudness: Normal Thought Process: Intact, Goal Oriented Thought Disorder: Not Present Hallucinations: Denies Suicidal Ideation: Denies Homicidal Ideation: Denies Insight/Judgement: Poor Sleep: Poorly Appetite: Fair Muscle strength/Tone: Normal Gait/Station: Normal Psychiatric Treatment Plan - Problem List (1) Cannabis dependence Current Visit: Yes (2) Insomnia Current Visit: Yes (3) Alcohol dependence Current Visit: Yes (4) Cocaine dependence Current Visit: Yes (5) Heroin dependence Current Visit: Yes
[2018-09-23] MEDS ORDERED: PT OWN MED DRAWER 7, Y5N ONE (20:03)
[2018-09-23] MEDS: THIAMINE HCL 100 MG TABLET (FP) PO SCH (21:30)
[2018-09-23] MEDS: traZODone HCL 50 MG TABLET (FP) PO SCH (21:30)
[2018-09-24] MEDS ORDERED: PT OWN MED DRAWER 7, Y5N ONE (08:57)
[2018-09-24] MEDS: EMTRICITAB/RILPIVIRINE/TENOFOV 1 EACH TABLET PO SCH (10:37)
[2018-09-24] MEDS: QUEtiapine FUMARATE 25 MG TABLET (FP) PO SCH ×2 (10:37→21:33)
[2018-09-24] MEDS: hydrOXYzine PAMOATE 25 MG CAPSULE (FP) PO PRN ×2 (10:38→21:33)
[2018-09-24] MEDS: PRENATAL VITAMINS W/ FOLIC ACID TABLET (FP) PO SCH (10:38)
[2018-09-24] MEDS: BUDESONIDE/FORMETEROL FUMARATE 80/4.5 mcg INHALER IH SCH ×2 (10:38→21:34)
[2018-09-24] MEDS: amLODIPine BESYLATE 10 MG TABLET (FP) PO SCH (10:39)
[2018-09-24] MEDS: NICOTINE POLACRILEX 2 MG GUM BUC PRN ×2 (10:39→21:34)
[2018-09-24] MEDS: THIAMINE HCL 100 MG TABLET (FP) PO SCH (21:33)
[2018-09-24] MEDS: traZODone HCL 50 MG TABLET (FP) PO SCH (21:33)
[2018-09-25] MEDS: hydrOXYzine PAMOATE 25 MG CAPSULE (FP) PO PRN ×2 (08:41→21:49)
[2018-09-25] MEDS ORDERED: PT OWN MED DRAWER 7, Y5N ONE (08:47)
[2018-09-25] MEDS: QUEtiapine FUMARATE 25 MG TABLET (FP) PO SCH ×2 (10:33→21:49)
[2018-09-25] MEDS: PRENATAL VITAMINS W/ FOLIC ACID TABLET (FP) PO SCH (10:33)
[2018-09-25] MEDS: BUDESONIDE/FORMETEROL FUMARATE 80/4.5 mcg INHALER IH SCH ×2 (10:33→21:49)
[2018-09-25] MEDS: amLODIPine BESYLATE 10 MG TABLET (FP) PO SCH (10:33)
[2018-09-25] MEDS: EMTRICITAB/RILPIVIRINE/TENOFOV 1 EACH TABLET PO SCH (10:33)
[2018-09-25] MEDS: NICOTINE POLACRILEX 2 MG GUM BUC PRN (10:34)
[2018-09-25] MEDS: IBUPROFEN 400 MG TABLET (FP) PO PRN (18:39)
[2018-09-25] MEDS: traZODone HCL 50 MG TABLET (FP) PO SCH (21:49)
[2018-09-25] MEDS: THIAMINE HCL 100 MG TABLET (FP) PO SCH (21:49)
[2018-09-26] MEDS: guaiFENesin/D-METHORPHAN HB 10 ML UNIT-DOSE CUPS PO PRN (06:31)
[2018-09-26] MEDS ORDERED: PT OWN MED DRAWER 7, Y5N ONE (09:05)
[2018-09-26] MEDS: EMTRICITAB/RILPIVIRINE/TENOFOV 1 EACH TABLET PO SCH (10:47)
[2018-09-26] MEDS: QUEtiapine FUMARATE 25 MG TABLET (FP) PO SCH ×2 (10:47→22:02)
[2018-09-26] MEDS: amLODIPine BESYLATE 10 MG TABLET (FP) PO SCH (10:47)
[2018-09-26] MEDS: PRENATAL VITAMINS W/ FOLIC ACID TABLET (FP) PO SCH (10:47)
[2018-09-26] MEDS: BUDESONIDE/FORMETEROL FUMARATE 80/4.5 mcg INHALER IH SCH ×2 (10:48→22:03)
[2018-09-26] MEDS: ACETAMINOPHEN 325 MG TABLET (FP) PO PRN ×2 (10:50→18:40)
[2018-09-26] MEDS: hydrOXYzine PAMOATE 25 MG CAPSULE (FP) PO PRN ×2 (14:01→22:02)
[2018-09-26] MEDS: traZODone HCL 50 MG TABLET (FP) PO SCH (22:02)
[2018-09-26] MEDS: THIAMINE HCL 100 MG TABLET (FP) PO SCH (22:02)
[2018-09-27] MEDS: IBUPROFEN 400 MG TABLET (FP) PO PRN (06:51)
[2018-09-27] MEDS: MENTHOL/PHENOL 1 EACH UD MM PRN (06:52)
[2018-09-27] MEDS: guaiFENesin/D-METHORPHAN HB 10 ML UNIT-DOSE CUPS PO PRN ×2 (06:53→22:05)
[2018-09-27] MEDS ORDERED: PT OWN MED DRAWER 7, Y5N ONE ×2 (08:44→20:57)
[2018-09-27] MEDS: EMTRICITAB/RILPIVIRINE/TENOFOV 1 EACH TABLET PO SCH (10:46)
[2018-09-27] MEDS: BUDESONIDE/FORMETEROL FUMARATE 80/4.5 mcg INHALER IH SCH ×2 (10:46→23:05)
[2018-09-27] MEDS: QUEtiapine FUMARATE 25 MG TABLET (FP) PO SCH ×2 (10:47→22:02)
[2018-09-27] MEDS: PRENATAL VITAMINS W/ FOLIC ACID TABLET (FP) PO SCH (10:47)
[2018-09-27] MEDS: amLODIPine BESYLATE 10 MG TABLET (FP) PO SCH (10:47)
[2018-09-27] MEDS: ACETAMINOPHEN 325 MG TABLET (FP) PO PRN (10:49)
[2018-09-27] MEDS: hydrOXYzine PAMOATE 25 MG CAPSULE (FP) PO PRN (10:51)
[2018-09-27] MEDS ORDERED: LIDOCAINE VISCOUS 2% ORAL/TOP 20 ML UNIT-DOSE CUP MM PRN (13:32)
--- NOTE | 2018-09-27 14:00 | PN ---
[facility] Progress Note (SOAP) Subjective: PT C/O CHRONIC ARTHRITIS PAIN TO KNEES AND BACK. ALSO C/O UPPER RIGHT MOLAR TOOTH PAIN. Vital Signs 09/27/18 09/27/18 07:08 09:24 Temperature 97.4 F L Pulse Rate 80 81 Respiratory 18 Rate Blood Pressure 111/71 102/75 Objective: 09/27/18 14:00 Vital Signs - 8 hr 09/27/18 09/27/18 07:08 09:24 Temperature 97.4 F L Pulse Rate 80 81 Respiratory 18 Rate Blood Pressure 111/71 102/75 ORAL EXAM: MM PINK LAST RIGHT UPPER MOLAR TOOTH IN POOR REPAIR. NO REDNESS OR SWELLING TO SURROUNDING GUM. Assessment: 09/27/18 14:01 TOOTH DECAY Plan: LIDOCAINE VISCOUS 2% SWISH DIRECTED. RE-EVALUATE PT IF NOT GETTING BETTER. FOLLOW UP WITH YOUR DENTIST AFTER REHAB
[2018-09-27] MEDS: THIAMINE HCL 100 MG TABLET (FP) PO SCH (22:02)
[2018-09-27] MEDS: traZODone HCL 50 MG TABLET (FP) PO SCH (22:03)
[2018-09-27] MEDS: CYCLOBENZAPRINE HCL 10 MG TABLET (FP) PO SCH (22:03)
[2018-09-27] MEDS: NICOTINE POLACRILEX 2 MG GUM BUC PRN (22:05)
[2018-09-27] MEDS: METHYL SALICYLATE/MENTHOL OINT 30 GM TUBE TP SCH (23:05)
[2018-09-28] MEDS: IBUPROFEN 400 MG TABLET (FP) PO PRN (00:31)
[2018-09-28] MEDS: MENTHOL/PHENOL 1 EACH UD MM PRN (00:32)
[2018-09-28] MEDS: CYCLOBENZAPRINE HCL 10 MG TABLET (FP) PO SCH ×3 (06:40→21:36)
[2018-09-28] MEDS ORDERED: PT OWN MED DRAWER 7, Y5N ONE ×2 (08:48→13:55)
[2018-09-28] MEDS: EMTRICITAB/RILPIVIRINE/TENOFOV 1 EACH TABLET PO SCH (10:17)
[2018-09-28] MEDS: METHYL SALICYLATE/MENTHOL OINT 30 GM TUBE TP SCH ×2 (10:17→21:37)
[2018-09-28] MEDS: QUEtiapine FUMARATE 25 MG TABLET (FP) PO SCH ×2 (10:18→21:36)
[2018-09-28] MEDS: PRENATAL VITAMINS W/ FOLIC ACID TABLET (FP) PO SCH (10:18)
[2018-09-28] MEDS: amLODIPine BESYLATE 10 MG TABLET (FP) PO SCH (10:19)
[2018-09-28] MEDS: BUDESONIDE/FORMETEROL FUMARATE 80/4.5 mcg INHALER IH SCH ×2 (10:19→21:37)
[2018-09-28] MEDS: guaiFENesin/D-METHORPHAN HB 10 ML UNIT-DOSE CUPS PO PRN (18:17)
[2018-09-28] MEDS: THIAMINE HCL 100 MG TABLET (FP) PO SCH (21:36)
[2018-09-28] MEDS: hydrOXYzine PAMOATE 25 MG CAPSULE (FP) PO PRN (21:36)
[2018-09-28] MEDS: traZODone HCL 50 MG TABLET (FP) PO SCH (21:36)
[2018-09-29] MEDS: CYCLOBENZAPRINE HCL 10 MG TABLET (FP) PO SCH ×3 (06:16→21:37)
[2018-09-29] MEDS: METHYL SALICYLATE/MENTHOL OINT 30 GM TUBE TP SCH ×2 (10:17→21:38)
[2018-09-29] MEDS: EMTRICITAB/RILPIVIRINE/TENOFOV 1 EACH TABLET PO SCH (10:17)
[2018-09-29] MEDS: PRENATAL VITAMINS W/ FOLIC ACID TABLET (FP) PO SCH (10:18)
[2018-09-29] MEDS: BUDESONIDE/FORMETEROL FUMARATE 80/4.5 mcg INHALER IH SCH ×2 (10:18→21:38)
[2018-09-29] MEDS: QUEtiapine FUMARATE 25 MG TABLET (FP) PO SCH ×2 (10:18→21:37)
[2018-09-29] MEDS: amLODIPine BESYLATE 10 MG TABLET (FP) PO SCH (10:18)
[2018-09-29] MEDS ORDERED: PT OWN MED DRAWER 7, Y5N ONE (12:43)
[2018-09-29] MEDS: THIAMINE HCL 100 MG TABLET (FP) PO SCH (21:37)
[2018-09-29] MEDS: hydrOXYzine PAMOATE 25 MG CAPSULE (FP) PO PRN (21:37)
[2018-09-29] MEDS: traZODone HCL 50 MG TABLET (FP) PO SCH (21:37)
[2018-09-30] MEDS: CYCLOBENZAPRINE HCL 10 MG TABLET (FP) PO SCH ×3 (06:02→21:27)
[2018-09-30] MEDS ORDERED: PT OWN MED DRAWER 7, Y5N ONE (08:57)
[2018-09-30] MEDS: EMTRICITAB/RILPIVIRINE/TENOFOV 1 EACH TABLET PO SCH (10:29)
[2018-09-30] MEDS: NICOTINE POLACRILEX 2 MG GUM BUC PRN ×2 (10:30→21:28)
[2018-09-30] MEDS: PRENATAL VITAMINS W/ FOLIC ACID TABLET (FP) PO SCH (10:30)
[2018-09-30] MEDS: QUEtiapine FUMARATE 25 MG TABLET (FP) PO SCH ×2 (10:30→21:27)
[2018-09-30] MEDS: amLODIPine BESYLATE 10 MG TABLET (FP) PO SCH (10:30)
[2018-09-30] MEDS: BUDESONIDE/FORMETEROL FUMARATE 80/4.5 mcg INHALER IH SCH ×2 (10:31→21:28)
[2018-09-30] MEDS: METHYL SALICYLATE/MENTHOL OINT 30 GM TUBE TP SCH ×2 (10:31→21:28)
[2018-09-30] MEDS: THIAMINE HCL 100 MG TABLET (FP) PO SCH (21:27)
[2018-09-30] MEDS: traZODone HCL 50 MG TABLET (FP) PO SCH (21:27)
[2018-09-30] MEDS: hydrOXYzine PAMOATE 25 MG CAPSULE (FP) PO PRN (21:27)
[2018-10-01] MEDS: CYCLOBENZAPRINE HCL 10 MG TABLET (FP) PO SCH ×3 (06:10→21:45)
[2018-10-01] MEDS ORDERED: PT OWN MED DRAWER 7, Y5N ONE ×2 (08:56→20:16)
[2018-10-01] MEDS: EMTRICITAB/RILPIVIRINE/TENOFOV 1 EACH TABLET PO SCH (10:45)
[2018-10-01] MEDS: PRENATAL VITAMINS W/ FOLIC ACID TABLET (FP) PO SCH (10:45)
[2018-10-01] MEDS: QUEtiapine FUMARATE 25 MG TABLET (FP) PO SCH ×2 (10:45→21:44)
[2018-10-01] MEDS: amLODIPine BESYLATE 10 MG TABLET (FP) PO SCH (10:45)
[2018-10-01] MEDS: METHYL SALICYLATE/MENTHOL OINT 30 GM TUBE TP SCH ×2 (10:46→21:44)
[2018-10-01] MEDS: NICOTINE POLACRILEX 2 MG GUM BUC PRN (10:46)
[2018-10-01] MEDS: BUDESONIDE/FORMETEROL FUMARATE 80/4.5 mcg INHALER IH SCH ×2 (10:47→21:45)
[2018-10-01] MEDS: traZODone HCL 50 MG TABLET (FP) PO SCH (21:44)
[2018-10-01] MEDS: THIAMINE HCL 100 MG TABLET (FP) PO SCH (21:45)
[2018-10-02] MEDS: CYCLOBENZAPRINE HCL 10 MG TABLET (FP) PO SCH ×3 (06:18→21:18)
[2018-10-02] MEDS: EMTRICITAB/RILPIVIRINE/TENOFOV 1 EACH TABLET PO SCH (09:29)
[2018-10-02] MEDS: BUDESONIDE/FORMETEROL FUMARATE 80/4.5 mcg INHALER IH SCH ×2 (09:29→21:19)
[2018-10-02] MEDS: amLODIPine BESYLATE 10 MG TABLET (FP) PO SCH (09:29)
[2018-10-02] MEDS: QUEtiapine FUMARATE 25 MG TABLET (FP) PO SCH ×2 (09:29→21:19)
[2018-10-02] MEDS: PRENATAL VITAMINS W/ FOLIC ACID TABLET (FP) PO SCH (09:29)
[2018-10-02] MEDS: METHYL SALICYLATE/MENTHOL OINT 30 GM TUBE TP SCH ×2 (10:10→21:19)
[2018-10-02] MEDS: traZODone HCL 50 MG TABLET (FP) PO SCH (21:18)
[2018-10-02] MEDS: THIAMINE HCL 100 MG TABLET (FP) PO SCH (21:19)
[2018-10-03] MEDS: CYCLOBENZAPRINE HCL 10 MG TABLET (FP) PO SCH ×3 (06:12→21:23)
[2018-10-03] MEDS ORDERED: PT OWN MED DRAWER 7, Y5N ONE (08:41)
[2018-10-03] MEDS: QUEtiapine FUMARATE 25 MG TABLET (FP) PO SCH ×2 (10:45→21:23)
[2018-10-03] MEDS: EMTRICITAB/RILPIVIRINE/TENOFOV 1 EACH TABLET PO SCH (10:45)
[2018-10-03] MEDS: BUDESONIDE/FORMETEROL FUMARATE 80/4.5 mcg INHALER IH SCH ×2 (10:45→21:23)
[2018-10-03] MEDS: PRENATAL VITAMINS W/ FOLIC ACID TABLET (FP) PO SCH (10:45)
[2018-10-03] MEDS: amLODIPine BESYLATE 10 MG TABLET (FP) PO SCH (10:46)
[2018-10-03] MEDS: METHYL SALICYLATE/MENTHOL OINT 30 GM TUBE TP SCH ×2 (10:46→21:24)
[2018-10-03] MEDS: hydrOXYzine PAMOATE 25 MG CAPSULE (FP) PO PRN (10:47)
[2018-10-03] MEDS: traZODone HCL 50 MG TABLET (FP) PO SCH (21:23)
[2018-10-03] MEDS: THIAMINE HCL 100 MG TABLET (FP) PO SCH (21:23)
[2018-10-04] MEDS: CYCLOBENZAPRINE HCL 10 MG TABLET (FP) PO SCH ×3 (06:04→21:13)
[2018-10-04] MEDS: METHYL SALICYLATE/MENTHOL OINT 30 GM TUBE TP SCH ×2 (10:22→21:34)
[2018-10-04] MEDS: BUDESONIDE/FORMETEROL FUMARATE 80/4.5 mcg INHALER IH SCH ×2 (10:23→21:35)
[2018-10-04] MEDS: amLODIPine BESYLATE 10 MG TABLET (FP) PO SCH (10:23)
[2018-10-04] MEDS: EMTRICITAB/RILPIVIRINE/TENOFOV 1 EACH TABLET PO SCH (10:23)
[2018-10-04] MEDS: QUEtiapine FUMARATE 25 MG TABLET (FP) PO SCH ×2 (10:23→21:13)
[2018-10-04] MEDS: PRENATAL VITAMINS W/ FOLIC ACID TABLET (FP) PO SCH (10:23)
[2018-10-04] MEDS: NICOTINE POLACRILEX 2 MG GUM BUC PRN ×2 (10:23→21:14)
[2018-10-04] MEDS ORDERED: PT OWN MED DRAWER 7, Y5N ONE ×2 (12:35→19:45)
[2018-10-04] MEDS: traZODone HCL 50 MG TABLET (FP) PO SCH (21:13)
[2018-10-04] MEDS: THIAMINE HCL 100 MG TABLET (FP) PO SCH (21:13)
[2018-10-05] MEDS: CYCLOBENZAPRINE HCL 10 MG TABLET (FP) PO SCH ×3 (06:07→21:40)
[2018-10-05] MEDS ORDERED: PT OWN MED DRAWER 7, Y5N ONE (08:38)
[2018-10-05] MEDS: ACETAMINOPHEN 325 MG TABLET (FP) PO PRN (08:41)
[2018-10-05] MEDS: METHYL SALICYLATE/MENTHOL OINT 30 GM TUBE TP SCH ×2 (10:24→21:43)
[2018-10-05] MEDS: EMTRICITAB/RILPIVIRINE/TENOFOV 1 EACH TABLET PO SCH (10:24)
[2018-10-05] MEDS: PRENATAL VITAMINS W/ FOLIC ACID TABLET (FP) PO SCH (10:25)
[2018-10-05] MEDS: BUDESONIDE/FORMETEROL FUMARATE 80/4.5 mcg INHALER IH SCH ×2 (10:25→21:43)
[2018-10-05] MEDS: amLODIPine BESYLATE 10 MG TABLET (FP) PO SCH (10:25)
[2018-10-05] MEDS: QUEtiapine FUMARATE 25 MG TABLET (FP) PO SCH ×2 (10:25→21:40)
[2018-10-05] MEDS: hydrOXYzine PAMOATE 25 MG CAPSULE (FP) PO PRN (10:26)
[2018-10-05] MEDS: NICOTINE POLACRILEX 2 MG GUM BUC PRN ×3 (10:27→21:43)
[2018-10-05] MEDS: THIAMINE HCL 100 MG TABLET (FP) PO SCH (21:40)
[2018-10-05] MEDS: traZODone HCL 50 MG TABLET (FP) PO SCH (21:40)
[2018-10-06] MEDS: CYCLOBENZAPRINE HCL 10 MG TABLET (FP) PO SCH ×3 (06:14→21:05)
[2018-10-06] MEDS ORDERED: PT OWN MED DRAWER 7, Y5N ONE (08:30)
[2018-10-06] MEDS: EMTRICITAB/RILPIVIRINE/TENOFOV 1 EACH TABLET PO SCH (10:21)
[2018-10-06] MEDS: QUEtiapine FUMARATE 25 MG TABLET (FP) PO SCH ×2 (10:21→21:06)
[2018-10-06] MEDS: METHYL SALICYLATE/MENTHOL OINT 30 GM TUBE TP SCH ×2 (10:21→21:07)
[2018-10-06] MEDS: amLODIPine BESYLATE 10 MG TABLET (FP) PO SCH (10:21)
[2018-10-06] MEDS: BUDESONIDE/FORMETEROL FUMARATE 80/4.5 mcg INHALER IH SCH ×2 (10:21→21:07)
[2018-10-06] MEDS: PRENATAL VITAMINS W/ FOLIC ACID TABLET (FP) PO SCH (10:21)
[2018-10-06] MEDS: traZODone HCL 50 MG TABLET (FP) PO SCH (21:05)
[2018-10-06] MEDS: THIAMINE HCL 100 MG TABLET (FP) PO SCH (21:05)
[2018-10-07] MEDS: CYCLOBENZAPRINE HCL 10 MG TABLET (FP) PO SCH ×3 (06:13→21:34)
[2018-10-07] MEDS: PRENATAL VITAMINS W/ FOLIC ACID TABLET (FP) PO SCH (10:26)
[2018-10-07] MEDS: EMTRICITAB/RILPIVIRINE/TENOFOV 1 EACH TABLET PO SCH (10:26)
[2018-10-07] MEDS: amLODIPine BESYLATE 10 MG TABLET (FP) PO SCH (10:26)
[2018-10-07] MEDS: QUEtiapine FUMARATE 25 MG TABLET (FP) PO SCH ×2 (10:26→21:34)
[2018-10-07] MEDS: METHYL SALICYLATE/MENTHOL OINT 30 GM TUBE TP SCH ×2 (10:56→21:38)
[2018-10-07] MEDS: BUDESONIDE/FORMETEROL FUMARATE 80/4.5 mcg INHALER IH SCH ×2 (10:57→21:38)
[2018-10-07] MEDS: NICOTINE POLACRILEX 2 MG GUM BUC PRN ×2 (14:27→21:36)
[2018-10-07] MEDS: traZODone HCL 50 MG TABLET (FP) PO SCH (21:34)
[2018-10-07] MEDS: THIAMINE HCL 100 MG TABLET (FP) PO SCH (21:34)
[2018-10-08] MEDS: CYCLOBENZAPRINE HCL 10 MG TABLET (FP) PO SCH ×3 (06:09→21:24)
[2018-10-08] MEDS: EMTRICITAB/RILPIVIRINE/TENOFOV 1 EACH TABLET PO SCH (10:22)
[2018-10-08] MEDS: QUEtiapine FUMARATE 25 MG TABLET (FP) PO SCH ×2 (10:23→21:24)
[2018-10-08] MEDS: amLODIPine BESYLATE 10 MG TABLET (FP) PO SCH (10:23)
[2018-10-08] MEDS: PRENATAL VITAMINS W/ FOLIC ACID TABLET (FP) PO SCH (10:23)
[2018-10-08] MEDS: METHYL SALICYLATE/MENTHOL OINT 30 GM TUBE TP SCH ×2 (10:24→21:23)
[2018-10-08] MEDS: BUDESONIDE/FORMETEROL FUMARATE 80/4.5 mcg INHALER IH SCH ×2 (10:24→21:24)
[2018-10-08] MEDS: NICOTINE POLACRILEX 2 MG GUM BUC PRN (10:24)
[2018-10-08] MEDS ORDERED: PT OWN MED DRAWER 7, Y5N ONE (11:39)
[2018-10-08] MEDS: THIAMINE HCL 100 MG TABLET (FP) PO SCH (21:24)
[2018-10-08] MEDS: traZODone HCL 50 MG TABLET (FP) PO SCH (21:24)
[2018-10-09] MEDS: ACETAMINOPHEN 325 MG TABLET (FP) PO PRN (04:53)
[2018-10-09] MEDS: CYCLOBENZAPRINE HCL 10 MG TABLET (FP) PO SCH ×3 (06:18→21:15)
[2018-10-09] MEDS ORDERED: COLLOIDAL OATMEAL 1 BAR EACH TP PRN (07:15)
[2018-10-09 07:19] VITALS: TEMP 97.3
[2018-10-09] MEDS: EMTRICITAB/RILPIVIRINE/TENOFOV 1 EACH TABLET PO SCH (10:52)
[2018-10-09] MEDS: METHYL SALICYLATE/MENTHOL OINT 30 GM TUBE TP SCH ×2 (10:52→21:16)
[2018-10-09] MEDS: amLODIPine BESYLATE 10 MG TABLET (FP) PO SCH (10:53)
[2018-10-09] MEDS: QUEtiapine FUMARATE 25 MG TABLET (FP) PO SCH ×2 (10:53→21:15)
[2018-10-09] MEDS: PRENATAL VITAMINS W/ FOLIC ACID TABLET (FP) PO SCH (10:53)
[2018-10-09] MEDS: NICOTINE POLACRILEX 2 MG GUM BUC PRN (10:53)
[2018-10-09] MEDS: hydrOXYzine PAMOATE 25 MG CAPSULE (FP) PO PRN (10:55)
[2018-10-09] MEDS: BUDESONIDE/FORMETEROL FUMARATE 80/4.5 mcg INHALER IH SCH ×2 (10:56→21:15)
[2018-10-09] MEDS ORDERED: PT OWN MED DRAWER 7, Y5N ONE ×3 (11:06→23:26)
[2018-10-09] MEDS: traZODone HCL 50 MG TABLET (FP) PO SCH (21:15)
[2018-10-09] MEDS: THIAMINE HCL 100 MG TABLET (FP) PO SCH (21:15)
[2018-10-10] MEDS: CYCLOBENZAPRINE HCL 10 MG TABLET (FP) PO SCH (06:28)
--- NOTE | 2018-10-10 08:22 | PN ---
Psychiatric Progress Note Vital Signs: Vital Signs Period Temp Pulse Resp BP Sys/Cole Pulse Ox Last 24 Hr 97.3 F 85-89 -18 117-124/72-83 Date of Session: 10/10/18 Current Medications: Active Medications Generic Name Dose Route Start Last Admin Trade Name Freq PRN Reason Stop Dose Admin Acetaminophen 650 mg 09/12/18 09:40 10/09/18 04:53 Tylenol - PO 650 mg Q4H PRN Administration FEVER Al Hydroxide/Mg Hydroxide 30 ml 09/12/18 09:40 Mylanta Oral Suspension - PO Q6H PRN DYSPEPSIA Albuterol Sulfate 2 puff 09/12/18 12:32 09/27/18 10:48 Ventolin Hfa Inhaler - IH 2 puff Q4H PRN Administration ASTHMA Amlodipine Besylate 10 mg 09/12/18 14:00 10/09/18 10:53 Norvasc - PO 10 mg DAILY LONI Administration Budesonide/Formoterol Fumarate 2 puff 09/12/18 22:00 10/09/18 21:15 Symbicort 80/4.5mcg - IH 2 puff BID LONI Administration Colloidal Oatmeal 1 applic 10/09/18 07:15 10/09/18 10:57 Aveeno Soap - TP 1 box DAILY PRN Administration HYGEINE Cyclobenzaprine HCl 10 mg 09/27/18 22:00 10/10/18 06:28 Flexeril - PO 10 mg TID LONI Administration Emtricitabine/Rilpivirine/Tenofovir 1 each 09/13/18 10:00 10/09/18 10:52 Complera - PO 1 each DAILY LONI Administration Eucalyptus/Menthol/Phenol/Sorbitol 1 each 09/12/18 09:40 09/28/18 00:32 Cepastat Lozenge - MM 1 each Q4H PRN Administration SORE THROAT Guaifenesin 10 ml 09/12/18 09:40 09/28/18 18:17 Robitussin Dm - PO 10 ml Q6H PRN Administration COUGH Hydroxyzine Pamoate 25 mg 09/12/18 09:40 10/09/18 10:55 Vistaril - PO 25 mg Q4H PRN Administration AGITATION Ibuprofen 400 mg 09/12/18 09:40 09/28/18 00:31 Motrin - PO 400 mg Q6H PRN Administration Pain Level 4-6 Lidocaine HCl 20 ml 09/27/18 13:32 Xylocaine 2% Viscous Oral - MM Q4H PRN ORAL PAIN/MOUTH SORES Loperamide HCl 4 mg 09/12/18 09:40 09/14/18 04:30 Imodium - PO 4 mg Q6H PRN Administration DIARRHEA Magnesium Citrate 300 ml 09/12/18 09:40 Citroma - PO Q48H PRN CONSTIPATION Magnesium Hydroxide 30 ml 09/12/18 09:40 09/23/18 18:54 Milk Of Magnesia - PO 30 ml DAILY PRN Administration CONSTIPATION Methyl Salicylate 1 applic 09/27/18 22:00 10/09/18 21:16 To-Hathaway - TP Not Given BID LONI Nicotine Polacrilex 2 mg 09/12/18 09:40 10/09/18 10:53 Nicorette Gum - BUC 2 mg Q2H PRN Administration NICOTINE REPLACEMENT RX Multivit/Folic Acid/Iron 1 tab 09/12/18 10:00 10/09/18 10:53 Vitamins (Sjr) - PO 1 tab DAILY LONI Administration Pseudoephedrine/Triprolidine 1 combo 09/12/18 09:40 10/02/18 21:19 Actifed - PO 1 combo TID PRN Administration NASAL CONGESTION Quetiapine Fumarate 25 mg 09/12/18 22:00 10/09/18 21:15 Seroquel - PO 25 mg BID LONI Administration Thiamine HCl 100 mg 09/12/18 22:00 10/09/18 21:15 Vitamin B1 - PO 100 mg HS LONI Administration Trazodone HCl 100 mg 09/23/18 22:00 10/09/18 21:15 Desyrel - PO 100 mg HS LONI Administration Provider note:: Trazodone 100 mg po hs and Seroquel 25 mg po bid Psychiatric Treatment Plan - Problem List (1) Alcohol dependence Current Visit: Yes Comment: . (2) Arthritis Current Visit: Yes (3) Cannabis dependence Current Visit: Yes Comment: . (4) Heroin dependence Current Visit: Yes Comment: . (5) Bipolar I disorder Current Visit: Yes (6) ASCUS with positive high risk HPV cervical Current Visit: Yes Comment: she will update her pap[facility]pelvic with [facility] - count includes the [facility] today. (7) Cocaine dependence Current Visit: Yes Comment: . (8) Low back pain Current Visit: Yes Comment: update xrays, consider mri, will refer ortho/ neuro if persistent. (9) Nicotine dependence Current Visit: Yes Qualifiers: Nicotine product type: cigarettes Substance use status: uncomplicated Qualified Code(s): F17.210 - Nicotine dependence, cigarettes, uncomplicated Comment: cont to address cessation efforts. (10) bipolar disorder Current Visit: Yes (11) Hepatitis C virus Current Visit: Yes Comment: tx'd with svr, cont post-tx surveillance, count includes the [facility] u/ s.
[2018-10-10] MEDS: PRENATAL VITAMINS W/ FOLIC ACID TABLET (FP) PO SCH (09:00)
[2018-10-10] MEDS: amLODIPine BESYLATE 10 MG TABLET (FP) PO SCH (09:01)
[2018-10-10] MEDS: QUEtiapine FUMARATE 25 MG TABLET (FP) PO SCH (09:01)
[2018-10-10] MEDS: EMTRICITAB/RILPIVIRINE/TENOFOV 1 EACH TABLET PO SCH (09:01)
[2018-10-10] MEDS: METHYL SALICYLATE/MENTHOL OINT 30 GM TUBE TP SCH (09:02)
[2018-10-10] MEDS: BUDESONIDE/FORMETEROL FUMARATE 80/4.5 mcg INHALER IH SCH (09:02)
[2018-10-10 09:18] VITALS: BP 122/67; PULSE 88
== END 2018-10-10 09:28 | disposition home or self-care (01) | DRG 773 ==
LOC: YASAS 08:51 → Y3E 11:28
PROVIDERS: ADMIT Psychiatry & Neurology Psychiatry; ATTEND Psychiatry & Neurology Psychiatry
PROC: HZ2ZZZZ Detoxification Services for Substance Abuse Treatment (ICD-10-PCS; principal; 2018-09-12)
DX: F11.20 Opioid dependence, uncomplicated (principal); F10.20 Alcohol dependence, uncomplicated; F14.20 Cocaine dependence, uncomplicated; F12.20 Cannabis dependence, uncomplicated; F17.210 Nicotine dependence, cigarettes, uncomplicated; F31.9 Bipolar disorder, unspecified; Z21 Asymptomatic human immunodeficiency virus [HIV] infection status; B18.2 Chronic viral hepatitis C; M12.9 Arthropathy, unspecified; M54.5 Low back pain; K08.89 Other specified disorders of teeth and supporting structures; R87.610 Atypical squamous cells of undetermined significance on cytologic smear of cervix (ASC-US); Z88.0 Allergy status to penicillin

== ENCOUNTER → 2019-07-04 | Outpatient (CLI) | payer OTHER | LOC: YHH 14:19 ==

== ENCOUNTER 2020-08-15 13:42 | Emergency (ER) | payer OTHER ==
[2020-08-15 13:59] VITALS: BP 144/100; PULSE 70; BMI 18.8
--- OUTSIDE RECORDS SUMMARY | 2020-08-15 14:43 | XMS ---
:1960 Author Organization [facility] Care Team Providers Name Role Phone [facility] Unavailable Unavailable Re-disclosure Warning The records that you are about to access may contain information from federally- assisted alcohol or drug abuse programs. If such information is present, then the following federally mandated warning applies: This information has been disclosed to you from records protected by federal confidentiality rules (42 CFR part 2). The federal rules prohibit you from making any further disclosure of this information unless further disclosure is expressly permitted by the written consent of the person to whom it pertains or as otherwise permitted by 42 CFR part 2. A general authorization for the release of medical or other information is NOT sufficient for this purpose. The Federal rules restrict any use of the information to criminally investigate or prosecute any alcohol or drug abuse patient.The records that you are about to access may contain highly sensitive health information, the redisclosure of which is protected by Article 27-F of the [facility] Public Health law. If you continue you may haveaccess to information: Regarding HIV / AIDS; Provided by facilities licensed or operated by the [facility] Office of Mental Health; or Provided by the [facility] Office for People With Developmental Disabilities. If such information is present, then the following [facility] mandated warning applies: This information has been disclosed to you from confidential records which are protected by state law. State law prohibits you from making any further disclosure of this information without the specific written consent of the person to whom it pertains, or as otherwise permitted by law. Any unauthorized further disclosure in violation of state law may result in a fine or skilled nursing sentence or both. A general authorization for the release of medical or other information is NOT sufficient authorization for further disclosure. Family History Family Member Family Member Family Member Date of Description Data Source(s) Name Gender Status Status Unknown Male Diagnosis 06/07/2015 [facility]) Unknown Male Diagnosis 06/07/2015 [facility]) Encounters Encounter Providers Location Date Indications Data Source(s ) Outpatient Attender: [facility] 08/05/2020 [facility] 03:44:32 PM [facility] EDT Patient admitted. Outpatient Attender: [address] 06/01/2020 11:30:06 AM [facility] ([facility]) Patient admitted. Outpatient Attender: [address] 04/09/2020 11:32:50 AM [facility] ([facility]) Patient admitted. Outpatient Attender: [address] 12/19/2019 11:55:58 AM [facility] ([facility]) Patient admitted. Insurance Providers Payer name Policy type Policy ID Covered Covered green party's Policy P lula / Coverage green party ID relationship to Parra Inf ormation type parra ODILIA [id number] 300 [employer] NON CAP
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
[2020-08-15] MEDS ORDERED: ONDANSETRON 4 MG/2 ML VIAL IVPUSH ONE (15:19)
[2020-08-15] MEDS ORDERED: LACTATED RINGERS SOLUTION 1000 ML INFUS.BAG IV ONE (15:20)
--- NOTE | 2020-08-15 15:31 | PDOC ---
Attending Attestation - Resident Resident Name: JustynaBeny - ED Attending Attestation I have performed the following: I have examined & evaluated the patient, The case was reviewed & discussed with the resident, I agree w/resident's findings & plan, Exceptions are as noted - HPI HPI: 08/15/20 15:31 59y F hx of hiv, bipoar, polysubstance abuse presents with comlaint of n/v since yesterday. she last use IV heroin was yesterday and has been having multiple episodes of yellow/green vomiting without coffee ground/hemetepmisis. She does endorse some loose stools that is nonbloody and not black.She endorses diffuse abdominal discomfort and cramping however she denies any fever, chills, blood in the stool. She denies any chest pain, shortness of breath. - Physicial Exam PE: 08/15/20 15:34 Exam: GENERAL: The patient is sleepy but easily arousable. HEAD: Normocephalic, atraumatic. ENT: Normal voice, Moist mucous membranes. LUNGS: Breath sounds equal, clear to auscultation bilaterally. No wheezes, no rhonchi, no rales. HEART: Regular rate and rhythm, normal S1 and S2 without murmur, rub or gallop. ABDOMEN: Soft, nontender, No guarding, no rebound. No CVA tenderness EXTREMITIES: Normal range of motion, no edema. - Medical Decision Making 08/15/20 15:34 suspect heroin withdrawal no abd tenderness to suggest acute abdominal process wll obtai blood work fluids/zofran for sx relief will reasess
[2020-08-15 15:58] LABS: BASO % 0.4 % (0-2.0); EOS % 0.1 % (0-4.5); HEMATOCRIT 43.4 % (32.4-45.2); HEMOGLOBIN 14.7 GM/dL (10.7-15.3); LYMPH % 4.9 % (8-40); MCH 30.9 pg (25.7-33.7); MCHC 33.8 g/dl (32.0-36.0); MEAN CELL VOLUME 91.5 fl (80-96); MEAN PLT VOLUME 8.3 fl (7.5-11.1); MONO % 2.1 % (3.8-10.2); NEUT % 92.5 % (42.8-82.8); PLATELET COUNT 203 K/MM3 (134-434); RBC 4.74 M/mm3 (3.60-5.2); RDW 12.7 % (11.6-15.6); WHITE BLOOD COUNT 13.3 K/mm3 (4.0-10.0)
[2020-08-15 16:28] LABS: ALBUMIN 4.2 g/dl (3.4-5.0); ALK PHOS 96 U/L (45-117); ANION GAP 6 MMOL/L (8-16); BILIRUBIN,TOTAL 0.8 mg/dL (0.2-1); BLOOD UREA NITROGEN 10.2 mg/dL (7-18); CALCIUM 9.8 mg/dL (8.5-10.1); CHLORIDE 106 mmol/L (98-107); CO2 30 mmol/L (21-32); CREATININE 0.6 mg/dL (0.55-1.3); GLUCOSE,RANDOM 105 mg/dL (74-106); POTASSIUM 3.3 mmol/L (3.5-5.1); SGOT/AST 28 U/L (15-37); SGPT/ALT 21 U/L (13-61); SODIUM 142 mmol/L (136-145); TOT PROT 8.2 g/dl (6.4-8.2)
[2020-08-15 16:30] LABS: ANISOCYTOSIS 0; MACROCYTOSIS 0; PLATELET ESTIMATE NORMAL
[2020-08-15] MEDS ORDERED: POTASSIUM CHLORIDE TABS 20 MEQ TABLET.ER (FP) PO ONE ×2 (16:54→17:03)
== END 2020-08-15 18:12 | disposition home or self-care (01) ==
LOC: JER 13:42
PROC: 3E033GC Introduction of Other Therapeutic Substance into Peripheral Vein, Percutaneous Approach (ICD-10-PCS; principal; 2020-08-15)
DX: R11.2 Nausea with vomiting, unspecified (principal); F11.20 Opioid dependence, uncomplicated
CPT/HCPCS: 36415; 80053; 83605; 84484; 85025; 99284-25

== ENCOUNTER 2020-08-19 10:45 | Inpatient (IN) | payer OTHER ==
--- OUTSIDE RECORDS SUMMARY | 2020-08-19 10:50 | XMS ---
:1960 Author Organization [facility] Care Team Providers Name Role Phone [facility] Unavailable Unavailable Re-disclosure Warning The records [...] is protected by Article 27-F of the [facility] Public Health law. If you continue you may haveaccess to information: Regarding HIV / AIDS; Provided by facilities licensed or operated by the [facility] Office of Mental Health; or Provided by the [facility] Office for People With Developmental Disabilities. If such information is present, then the following [facility] mandated warning applies: This information has been [...] law may result in a fine or group home sentence or both. A general authorization for the release of medical or other information is NOT sufficient authorization for further disclosure. Family History Family Member Family Member Family Member Date of Description Data Source(s) Name Gender Status Status Unknown Male Diagnosis 06/07/2015 [facility] AM [facility]) Unknown Male Diagnosis 06/07/2015 [facility]) Encounters Encounter Providers Location Date Indications Data Source(s ) Outpatient Attender: [facility] 08/05/2020 [facility] 03:44:32 PM [facility] EDT Patient admitted. Outpatient Attender: [address] 06/01/2020 11:30:06 AM [facility] ([facility]) Patient admitted. Outpatient Attender: [address] 04/09/2020 11:32:50 AM [facility] ([facility]) Patient admitted. Outpatient Attender: [address] 12/19/2019 11:55:58 AM [facility] ([facility]) Patient admitted. Insurance Providers Payer name Policy type Policy ID Covered Covered democrat's Policy P lula / Coverage democrat ID relationship to Parra Inf ormation type parra ODILIA [id number] [facility] NON CAP
--- NOTE | 2020-08-19 11:14 | BHS.RME ---
2019 N Coronavirus Screen - COVID-19 Screening Questions Dx of COVID-19 or had a positive test in the last 4 weeks?: No Contact with known/suspected COVID patient in last 14 days?: No Any of these symptoms or contact with someone who has?: None Traveled domestically/internationally in the last 14 days?: No Screen score: 0 Screen result: Further Evaluation Substance Use & Tx History - Substance Use History Heroin Substance amount: 2-3 bags Frequency of use: Daily Substance route: Inhalation (ex: sniffing or snorting) Date of Last Use: 08/19/20 (started age 53) Cocaine-Crack Substance amount: $100 Frequency of use: Daily Substance route: Smoking Date of Last Use: 08/18/20 (started age 23) Nicotine Substance amount: 1/2 pack Frequency of use: Daily Substance route: Smoking Date of Last Use: 08/19/20 (started age 12) COWS - Scale Resting Pulse: 0= [place] 80 or Below Sweatin= Chills/Flushing Restless Observation: 1= Difficult to Sit Still Pupil Size: 1= Pupils >than Normal Bone or Joint Aches: 1= Mild Discomfort Runny Nose/ Eye Tearin= None GI Upset > 30mins: 1= Stomach Cramp Tremor Observation: 1= Tremor [place], Not Seen Yawning Observation: 1= 1-2x During Session Anxiety or Irritability: 2=Irritable/Anxious Goose Flesh Skin: 3=Piloerection COWS Score: 12
[2020-08-19 11:17] VITALS: BMI 17.2
--- OUTSIDE RECORDS SUMMARY | 2020-08-19 11:50 | XMS ---
:1960 Author Organization [facility] Care Team Providers Name Role Phone [facility] Unavailable Unavailable Re-disclosure Warning The records that [...] is protected by Article 27-F of the [facility] Public Health law. If you continue you may haveaccess to information: Regarding HIV / AIDS; Provided by facilities licensed or operated by the [facility] Office of Mental Health; or Provided by the [facility] Office for People With Developmental Disabilities. If such information is present, then the following [facility] mandated warning applies: This information [...] law may result in a fine or mcc sentence or both. A general authorization for the release of medical or other information is NOT sufficient authorization for further disclosure. Family History Family Member Family Member Family Member Date of Description Data Source(s) Name Gender Status Status Unknown Male Diagnosis 06/07/2015 [facility] 12[facility]00:[address] [facility]) Unknown Male Diagnosis 06/07/2015 [facility] ([facility] 12[facility]:[address] [facility]) Encounters Encounter Providers Location Date Indications Data Source(s ) Outpatient Attender: [facility] 08/05/2020 [facility] 03:44:32 PM [facility] [place] EDT Patient admitted. Outpatient Attender: [address] 06/01/2020 11:30:06 AM [facility] ([facility]) Patient admitted. Outpatient Attender: [address] 04/09/2020 11:32:50 AM [facility] ([facility]) Patient admitted. Outpatient Attender: [address] 12/19/2019 11:55:58 AM [facility] ([facility]) Patient admitted. Insurance Providers Payer name Policy type Policy ID Covered Covered republican's Policy P lula / Coverage republican ID relationship to Parra Inf ormation type parra ODILIA [id number] NON CAP
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
[2020-08-19] MEDS ORDERED: METHOCARBAMOL 500 MG TABLET PO PRN (12:07)
[2020-08-19] MEDS ORDERED: ALBUTEROL SO4 HFA INHALER IH PRN (12:07)
[2020-08-19] MEDS ORDERED: MENTHOL/PHENOL 1 EACH UD MM PRN (12:07)
[2020-08-19] MEDS ORDERED: NICOTINE POLACRILEX 2 MG GUM BUC PRN (12:07)
[2020-08-19] MEDS ORDERED: BISMUTH SUBSALICYLATE 262 MG/15 ML BTL PO PRN (12:07)
[2020-08-19] MEDS ORDERED: cloNIDine HCL 0.1 MG TABLET PO PRN (12:07)
[2020-08-19] MEDS ORDERED: MAGNESIUM HYDROX 2400MG/30ML ORAL SUSPENSION 30 ML CUP PO PRN (12:07)
[2020-08-19] MEDS ORDERED: IBUPROFEN 400 MG TABLET (FP) PO PRN (12:07)
[2020-08-19] MEDS ORDERED: ONDANSETRON *ODT* 4 MG TABLET SL PRN (12:07)
[2020-08-19] MEDS ORDERED: METHADONE HCL 10 MG TABLET (FOR DETOX USE ONLY) PO ONE (12:07)
[2020-08-19] MEDS ORDERED: MAG HYDROX/AL HYDROX/SIMETH 30 ML UNIT-DOSE CUP PO PRN (12:07)
[2020-08-19] MEDS ORDERED: ACETAMINOPHEN 325 MG TABLET (FP) PO PRN ×2 (12:07)
[2020-08-19] MEDS ORDERED: MAGNESIUM CITRATE 300 ML BOTTLE PO PRN (12:07)
[2020-08-19] MEDS: NICOTINE 14 MG/24 HOURS TOPICAL PATCH TD SCH (12:30)
[2020-08-19] MEDS: amLODIPine BESYLATE 10 MG TABLET (FP) PO SCH (12:30)
[2020-08-19] MEDS ORDERED: hydrOXYzine PAMOATE 25 MG CAPSULE (FP) PO SCH (14:00)
[2020-08-19 14:41] LABS: HEMATOCRIT 36.2 % (32.4-45.2); HEMOGLOBIN 12.5 GM/dL (10.7-15.3); MCHC 34.4 g/dl (32.0-36.0); MEAN CELL VOLUME 93.1 fl (80-96); MEAN PLT VOLUME 9.5 fl (7.5-11.1); PLATELET COUNT 163 K/MM3 (134-434); POTASSIUM 3.6 mmol/L (3.5-5.1); RBC 3.89 M/mm3 (3.60-5.2); RDW 12.6 % (11.6-15.6); WHITE BLOOD COUNT 4.9 K/mm3 (4.0-10.0)
[2020-08-19 14:47] LABS: ALBUMIN 3.5 g/dl (3.4-5.0); BLOOD UREA NITROGEN 14.1 mg/dL (7-18); CALCIUM 9.6 mg/dL (8.5-10.1)
[2020-08-19 14:50] LABS: CREATININE 0.8 mg/dL (0.55-1.3)
[2020-08-19 14:52] LABS: BILIRUBIN,TOTAL 0.5 mg/dL (0.2-1); TOT PROT 6.9 g/dl (6.4-8.2)
--- NOTE | 2020-08-19 16:15 | EKG ---
Test Reason : Blood Pressure : / mmHG Vent. Rate : 055 BPM Atrial Rate : 055 BPM P-R Int : 160 ms QRS Dur : 090 ms QT Int : 442 ms P-R-T Axes : 076 031 -37 degrees QTc Int : 422 ms SINUS BRADYCARDIA POSSIBLE LEFT ATRIAL ENLARGEMENT LEFT VENTRICULAR HYPERTROPHY CANNOT RULE OUT SEPTAL INFARCT , AGE UNDETERMINED ABNORMAL ECG WHEN COMPARED WITH ECG OF 02-MAR-2019 11:08, T WAVE VARIATION Confirmed by YOGESH ARMSTRONG, KIMBERLY ([id number]) on 08/19/2020 4:14:59 PM Referred By: Confirmed By:KIMBERLY ZUÑIGA MD
[2020-08-19] MEDS: hydrOXYzine PAMOATE 25 MG CAPSULE (FP) PO PRN (21:29)
[2020-08-19] MEDS: THIAMINE HCL 100 MG TABLET (FP) PO SCH (21:29)
[2020-08-19] MEDS: MELATONIN 5 MG TABLETS PO SCH (21:29)
[2020-08-20] MEDS: hydrOXYzine PAMOATE 25 MG CAPSULE (FP) PO PRN (06:48)
[2020-08-20] MEDS ORDERED: BICTEGRAV/EMTRICIT/TENOFOV (BIKTARVY) 50-200-25 MG TABLET PO SCH (08:00)
[2020-08-20] MEDS ORDERED: METHADONE HCL 5 MG TABLET (FOR DETOX USE ONLY) ONE (09:17)
[2020-08-20] MEDS ORDERED: METHADONE HCL 10 MG TABLET (FOR DETOX USE ONLY) ONE (09:17)
[2020-08-20] MEDS: amLODIPine BESYLATE 10 MG TABLET (FP) PO SCH (09:19)
[2020-08-20] MEDS: NICOTINE 14 MG/24 HOURS TOPICAL PATCH TD SCH (09:21)
[2020-08-20] MEDS ORDERED: METHADONE (DETOX) 20 MG, METHADONE (DETOX) 5 MG PO ONE (10:00)
[2020-08-20] MEDS ORDERED: PRENATAL VITAMINS W/ FOLIC ACID TABLET (FP) PO SCH (10:00)
[2020-08-20] MEDS ORDERED: TRIMETHOBENZAMIDE HCL 300 MG CAPSULE PO PRN (10:08)
[2020-08-20] MEDS ORDERED: diazePAM 5 MG TABLET PO PRN (10:08)
--- NOTE | 2020-08-20 10:11 | PN ---
S COWS - Scale Resting Pulse: 0= [place] 80 or Below Sweatin=Flushed/Facial Moisture Restless Observation: 1= Difficult to Sit Still Pupil Size: 0= Normal to Room Light Bone or Joint Aches: 2= Severe Diffuse Aches Runny Nose/ Eye Tearin= Nasal Congestion GI Upset > 30mins: 2= Nausea/Diarrhea Tremor Observation of Outstretched Hands: 2= Slight Tremor Visible Yawning Observation: 1= 1-2x During Session Anxiety or Irritability: 2=Irritable/Anxious Goose Flesh Skin: 3=Piloerection COWS Score: 16 BHS Progress Note (SOAP) Subjective: nausea vomiting chills body aches interrupted sleep agitation muscle aches restless Objective: 08/20/20 10:09 Vital Signs Temperature 97.3 F L 08/20/20 08:40 Pulse Rate 67 08/20/20 08:40 Respiratory Rate 18 08/20/20 08:40 Blood Pressure 139/78 08/20/20 08:40 O2 Sat by Pulse Oximetry (%) 98 08/20/20 08:40 Laboratory Tests 08/19/20 08/19/20 08/19/20 12:00 12:01 12:01 WBC 4.9 RBC 3.89 Hgb 12.5 Hct 36.2 D MCV 93.1 MCH 32.0 MCHC 34.4 RDW 12.6 Plt Count 163 MPV 9.5 D Sodium 144 Potassium 3.6 Chloride 106 Carbon Dioxide 31 Anion Gap 6 L BUN 14.1 Creatinine 0.8 Est GFR (CKD-EPI)AfAm 93.53 Est GFR (CKD-EPI)NonAf 80.70 Random Glucose 92 Calcium 9.6 Total Bilirubin 0.5 AST 22 ALT 17 Alkaline Phosphatase 77 Total Protein 6.9 Albumin 3.5 Syphilis Serology RPR Titer COVID-19 ([facility]) Not detected 08/19/20 08/19/20 12:01 12:01 WBC RBC Hgb Hct MCV MCH MCHC RDW Plt Count MPV Sodium Potassium Chloride Carbon Dioxide Anion Gap BUN Creatinine Est GFR (CKD-EPI)AfAm Est GFR (CKD-EPI)NonAf Random Glucose Calcium Total Bilirubin AST ALT Alkaline Phosphatase Total Protein Albumin Syphilis Serology Reactive A* RPR Titer Reactive 1:1 H D COVID-19 ([facility]) labs noted lying in bed no acute distress Assessment: 08/20/20 10:10 withdrawals Plan: continue detox increase fluids zofran d/c tigan po ordered prn valium 5mg prn x 3 days
[2020-08-20] MEDS: MELATONIN 5 MG TABLETS PO SCH (22:10)
[2020-08-20] MEDS: THIAMINE HCL 100 MG TABLET (FP) PO SCH (22:10)
[2020-08-21 07:05] VITALS: BP 142/82; PULSE 68; TEMP 11697.5
--- NOTE | 2020-08-21 09:01 | PN ---
[facility] Progress Note Note: pt came up to the nurses station stating I want to leave NOW!. Pt was asked if there is something we can help with, pt shrugged her shoulders and continue to states I want to leave. Tejal the clinical dog license officer supervisor also present and pt was reluctant to explain to any staff member her reason for leaving. It was addressed to her that she is at risk for relapse, seizures, DT, OD and or loss, however pt chose to sign out AMA.
[2020-08-21] MEDS ORDERED: METHADONE HCL 10 MG TABLET (FOR DETOX USE ONLY) PO ONE (10:00)
--- NOTE | 2020-08-21 11:43 | DS ---
[facility] Detox Discharge Summary Admission Date: 08/19/20 - History Present History: Cannabis Dependence, Opioid Dependence - Physical Exam Results Vital Signs: Vital Signs Temperature 79429.5 F H 08/21/20 05:55 Pulse Rate 68 08/21/20 05:55 Respiratory Rate 18 08/21/20 05:55 Blood Pressure 142/82 08/21/20 05:55 O2 Sat by Pulse Oximetry (%) 98 08/21/20 05:55 Pertinent Admission Physical Exam Findings: Vital Signs Temperature 04944.5 F H 08/21/20 05:55 Pulse Rate 68 08/21/20 05:55 Respiratory Rate 18 08/21/20 05:55 Blood Pressure 142/82 08/21/20 05:55 O2 Sat by Pulse Oximetry (%) 98 08/21/20 05:55 Laboratory Tests 08/19/20 08/19/20 08/19/20 11:19 12:00 12:01 WBC 4.9 RBC 3.89 Hgb 12.5 Hct 36.2 D MCV 93.1 MCH 32.0 MCHC 34.4 RDW 12.6 Plt Count 163 MPV 9.5 D Sodium Potassium Chloride Carbon Dioxide Anion Gap BUN Creatinine Est GFR (CKD-EPI)AfAm Est GFR (CKD-EPI)NonAf Random Glucose Calcium Total Bilirubin AST ALT Alkaline Phosphatase Total Protein Albumin POC Urine HCG, Qual Negative Syphilis Serology RPR Titer COVID-19 ([facility]) Not detected 08/19/20 08/19/20 08/19/20 12:01 12:01 12:01 WBC RBC Hgb Hct MCV MCH MCHC RDW Plt Count MPV Sodium 144 Potassium 3.6 Chloride 106 Carbon Dioxide 31 Anion Gap 6 L BUN 14.1 Creatinine 0.8 Est GFR (CKD-EPI)AfAm 93.53 Est GFR (CKD-EPI)NonAf 80.70 Random Glucose 92 Calcium 9.6 Total Bilirubin 0.5 AST 22 ALT 17 Alkaline Phosphatase 77 Total Protein 6.9 Albumin 3.5 POC Urine HCG, Qual Syphilis Serology Reactive A* RPR Titer Reactive 1:1 H D COVID-19 ([facility]) labs noted aaox3 ambulating no acute distress pt chose to sign out AMA. - Treatment Patient has Accepted a Rehab Referral to: pt refused and signed out AMA. - Medication Discharge Medications: Ambulatory Orders Albuterol Sulfate Inhaler - [Ventolin HFA Inhaler -] 2 inh IH Q4H PRN #1 inh 02/13/20 Amlodipine Besylate [Norvasc -] 10 mg PO DAILY #30 tablet 02/13/20 Bictegrav/Emtricit/Tenofov Ala [Biktarvy 50-200-25 mg Tablet] 1 each PO DAILY #30 tablet 02/13/20 - Diagnosis (1) Cannabis dependence Status: Acute (2) Dysuria Status: Acute (3) Family history of breast cancer Status: Acute (4) Gastroenteritis Status: Acute (5) Genital lesion, female Status: Acute (6) Insomnia Status: Acute (7) Lymphadenopathy of head and neck Status: Acute (8) Narcotic abuse Status: Acute (9) Nausea and vomiting Status: Acute Qualifiers: Vomiting type: unspecified Vomiting Intractability: unspecified Qualified Code(s): R11.2 - Nausea with vomiting, unspecified (10) Nicotine dependence Status: Acute Qualifiers: Nicotine product type: cigarettes Substance use status: uncomplicated Qualified Code(s): F17.210 - Nicotine dependence, cigarettes, uncomplicated (11) Opioid dependence with withdrawal Status: Acute (12) PPD screening test Status: Acute (13) Pain, dental Status: Acute (14) Right knee pain Status: Acute (15) Screening for tuberculosis Status: Acute (16) UTI (urinary tract infection) Status: Acute (17) Weight loss, non-intentional Status: Acute (18) ASCUS with positive high risk HPV cervical Status: Chronic (19) Alcohol dependence Status: Chronic (20) Alcohol dependence with uncomplicated withdrawal Status: Chronic (21) Arthritis Status: Chronic (22) Asthma Status: Chronic (23) Bipolar I disorder Status: Chronic (24) Bipolar II disorder Status: Chronic (25) Cannabis abuse Status: Chronic (26) Cannabis dependence, uncomplicated Status: Chronic (27) Chest tightness Status: Chronic (28) Cocaine dependence Status: Chronic Qualifiers: (29) Cocaine dependence Status: Chronic (30) HIV (human immunodeficiency virus infection) Status: Chronic (31) HIV antibody positive Status: Chronic (32) HIV disease Status: Chronic (33) Hepatitis C virus Status: Chronic (34) Heroin dependence Status: Chronic (35) History of cirrhosis of liver Status: Chronic (36) Human immunodeficiency virus infection Status: Chronic (37) Hypercholesterolemia Status: Chronic (38) Hypertension Status: Chronic Qualifiers: Hypertension type: essential hypertension Qualified Code(s): I10 - Essential (primary) hypertension (39) Low back pain Status: Chronic (40) Tobacco use disorder Status: Chronic (41) bipolar disorder Status: Chronic (42) Chest pain Status: Resolved Qualifiers: Chest pain type: unspecified Qualified Code(s): R07.9 - Chest pain, unspecified (43) Discharge from right nipple Status: Resolved (44) Hep C w/o coma, chronic Status: Resolved - AMA Did Patient Leave Against Medical Advice: Yes
[2020-08-22] MEDS ORDERED: METHADONE (DETOX) 10 MG, METHADONE (DETOX) 5 MG PO ONE (10:00)
[2020-08-23] MEDS ORDERED: METHADONE HCL 10 MG TABLET (FOR DETOX USE ONLY) PO ONE (10:00)
[2020-08-24] MEDS ORDERED: METHADONE HCL 5 MG TABLET (FOR DETOX USE ONLY) PO ONE (06:00)
== END 2020-08-21 09:15 | disposition left against medical advice (07) | DRG 770 ==
LOC: YASAS 10:45 → Y6N 11:37
PROVIDERS: ADMIT Allergy & Immunology; ATTEND Allergy & Immunology
PROC: HZ2ZZZZ Detoxification Services for Substance Abuse Treatment (ICD-10-PCS; principal; 2020-08-19)
DX: F11.23 Opioid dependence with withdrawal (principal); F14.20 Cocaine dependence, uncomplicated; F17.210 Nicotine dependence, cigarettes, uncomplicated; F12.20 Cannabis dependence, uncomplicated; F31.81 Bipolar II disorder; F41.9 Anxiety disorder, unspecified; Z21 Asymptomatic human immunodeficiency virus [HIV] infection status; B18.2 Chronic viral hepatitis C; E78.5 Hyperlipidemia, unspecified; I10 Essential (primary) hypertension; J45.909 Unspecified asthma, uncomplicated; R11.2 Nausea with vomiting, unspecified; R63.4 Abnormal weight loss; Z68.1 Body mass index [BMI] 19.9 or less, adult; Z87.19 Personal history of other diseases of the digestive system; Z59.0 Homelessness
CPT/HCPCS: 36415; 80053; 81025; 85027; 86593; 86780; 93005; 93010; C9803; J0735; U0003

== ENCOUNTER 2020-09-23 11:22 | Inpatient (IN) | payer OTHER ==
[2020-09-23 12:05] VITALS: BMI 18.1
[2020-09-23] MEDS ORDERED: NICOTINE POLACRILEX 2 MG GUM BUC PRN (12:49)
[2020-09-23] MEDS ORDERED: MAGNESIUM HYDROX 2400MG/30ML ORAL SUSPENSION 30 ML CUP PO PRN (12:49)
[2020-09-23] MEDS ORDERED: METHOCARBAMOL 500 MG TABLET PO PRN (12:49)
[2020-09-23] MEDS ORDERED: ACETAMINOPHEN 325 MG TABLET (FP) PO PRN ×2 (12:49)
[2020-09-23] MEDS ORDERED: METHADONE HCL 10 MG TABLET (FOR DETOX USE ONLY) PO ONE (12:49)
[2020-09-23] MEDS ORDERED: MAGNESIUM CITRATE 300 ML BOTTLE PO PRN (12:49)
[2020-09-23] MEDS ORDERED: MAG HYDROX/AL HYDROX/SIMETH 30 ML UNIT-DOSE CUP PO PRN (12:49)
[2020-09-23] MEDS ORDERED: ONDANSETRON *ODT* 4 MG TABLET SL PRN (12:49)
[2020-09-23] MEDS ORDERED: cloNIDine HCL 0.1 MG TABLET PO PRN (12:49)
[2020-09-23] MEDS ORDERED: BISMUTH SUBSALICYLATE 262 MG/15 ML BTL PO PRN (12:49)
[2020-09-23] MEDS ORDERED: MENTHOL/PHENOL 1 EACH UD MM PRN (12:49)
[2020-09-23] MEDS ORDERED: IBUPROFEN 400 MG TABLET (FP) PO PRN (12:49)
[2020-09-23] MEDS ORDERED: ALBUTEROL SO4 HFA INHALER IH PRN (12:52)
[2020-09-23] MEDS: NICOTINE 21 MG/24 HOURS TOPICAL PATCH TD SCH (13:19)
[2020-09-23] MEDS: amLODIPine BESYLATE 10 MG TABLET (FP) PO SCH (13:19)
[2020-09-23] MEDS ORDERED: hydrOXYzine PAMOATE 25 MG CAPSULE (FP) PO SCH (14:00)
[2020-09-23 16:56] LABS: HEMATOCRIT 34.5 % (32.4-45.2); HEMOGLOBIN 11.6 GM/dL (10.7-15.3); MCH 31.7 pg (25.7-33.7); MCHC 33.7 g/dl (32.0-36.0); MEAN CELL VOLUME 94.1 fl (80-96); MEAN PLT VOLUME 9.4 fl (7.5-11.1); PLATELET COUNT 151 K/MM3 (134-434); RBC 3.67 M/mm3 (3.60-5.2); RDW 13.2 % (11.6-15.6); WHITE BLOOD COUNT 3.9 K/mm3 (4.0-10.0)
[2020-09-23 16:59] LABS: POTASSIUM 3.4 mmol/L (3.5-5.1)
[2020-09-23 17:01] LABS: CALCIUM 8.9 mg/dL (8.5-10.1)
[2020-09-23 17:02] LABS: ALBUMIN 3.4 g/dl (3.4-5.0)
[2020-09-23 17:05] LABS: CREATININE 0.8 mg/dL (0.55-1.3)
[2020-09-23 17:07] LABS: BILIRUBIN,TOTAL 0.2 mg/dL (0.2-1); TOT PROT 6.6 g/dl (6.4-8.2)
[2020-09-23] MEDS: QUEtiapine FUMARATE 100 MG TABLET (FP) PO SCH (22:22)
[2020-09-23] MEDS: MELATONIN 5 MG TABLETS PO SCH (22:23)
[2020-09-23] MEDS: hydrOXYzine PAMOATE 25 MG CAPSULE (FP) PO PRN (22:23)
[2020-09-23] MEDS: THIAMINE HCL 100 MG TABLET (FP) PO SCH (22:23)
[2020-09-24] MEDS ORDERED: METHADONE HCL 5 MG TABLET (FOR DETOX USE ONLY) ONE (08:50)
[2020-09-24] MEDS ORDERED: METHADONE HCL 10 MG TABLET (FOR DETOX USE ONLY) ONE (08:51)
[2020-09-24] MEDS ORDERED: METHADONE (DETOX) 20 MG, METHADONE (DETOX) 5 MG PO ONE (10:00)
[2020-09-24] MEDS: amLODIPine BESYLATE 10 MG TABLET (FP) PO SCH (10:35)
[2020-09-24] MEDS: NICOTINE 21 MG/24 HOURS TOPICAL PATCH TD SCH (10:35)
[2020-09-24] MEDS: PRENATAL VITAMINS W/ FOLIC ACID TABLET (FP) PO SCH (10:36)
[2020-09-24] MEDS: BICTEGRAV/EMTRICIT/TENOFOV (BIKTARVY) 50-200-25 MG TABLET PO SCH (10:36)
[2020-09-24] MEDS: POTASSIUM CHLORIDE TABS 20 MEQ TABLET.ER (FP) PO SCH (13:31)
[2020-09-24] MEDS: MELATONIN 5 MG TABLETS PO SCH (22:30)
[2020-09-24] MEDS: hydrOXYzine PAMOATE 25 MG CAPSULE (FP) PO PRN (22:30)
[2020-09-24] MEDS: THIAMINE HCL 100 MG TABLET (FP) PO SCH (22:30)
[2020-09-24] MEDS: QUEtiapine FUMARATE 100 MG TABLET (FP) PO SCH (22:30)
[2020-09-25] MEDS ORDERED: METHADONE HCL 10 MG TABLET (FOR DETOX USE ONLY) PO ONE (10:00)
[2020-09-25] MEDS: POTASSIUM CHLORIDE TABS 20 MEQ TABLET.ER (FP) PO SCH (10:15)
[2020-09-25] MEDS: BICTEGRAV/EMTRICIT/TENOFOV (BIKTARVY) 50-200-25 MG TABLET PO SCH (10:15)
[2020-09-25] MEDS: PRENATAL VITAMINS W/ FOLIC ACID TABLET (FP) PO SCH (10:16)
[2020-09-25] MEDS: amLODIPine BESYLATE 10 MG TABLET (FP) PO SCH (10:16)
[2020-09-25] MEDS: NICOTINE 21 MG/24 HOURS TOPICAL PATCH TD SCH (10:16)
[2020-09-25] MEDS: MELATONIN 5 MG TABLETS PO SCH (21:40)
[2020-09-25] MEDS: THIAMINE HCL 100 MG TABLET (FP) PO SCH (21:40)
[2020-09-25] MEDS: QUEtiapine FUMARATE 100 MG TABLET (FP) PO SCH (21:40)
[2020-09-26] MEDS ORDERED: METHADONE HCL 5 MG TABLET (FOR DETOX USE ONLY) ONE (08:38)
[2020-09-26] MEDS ORDERED: METHADONE HCL 10 MG TABLET (FOR DETOX USE ONLY) ONE (08:38)
[2020-09-26 09:41] LABS: BASO % 0.6 % (0-2.0); EOS % 2.2 % (0-4.5); HEMATOCRIT 40.5 % (32.4-45.2); HEMOGLOBIN 13.4 GM/dL (10.7-15.3); LYMPH % 33.4 % (8-40); MCHC 33.2 g/dl (32.0-36.0); MEAN CELL VOLUME 93.5 fl (80-96); MEAN PLT VOLUME 9.2 fl (7.5-11.1); NEUT % 51.8 % (42.8-82.8); PLATELET COUNT 151 K/MM3 (134-434); POTASSIUM 3.6 mmol/L (3.5-5.1); RBC 4.33 M/mm3 (3.60-5.2); RDW 13.3 % (11.6-15.6); WHITE BLOOD COUNT 3.2 K/mm3 (4.0-10.0)
[2020-09-26 09:46] LABS: ALBUMIN 3.5 g/dl (3.4-5.0); BLOOD UREA NITROGEN 15.4 mg/dL (7-18); CALCIUM 9.1 mg/dL (8.5-10.1)
[2020-09-26 09:48] LABS: CREATININE 0.8 mg/dL (0.55-1.3)
[2020-09-26 09:50] LABS: BILIRUBIN,TOTAL 0.8 mg/dL (0.2-1); TOT PROT 6.9 g/dl (6.4-8.2)
[2020-09-26] MEDS ORDERED: METHADONE (DETOX) 10 MG, METHADONE (DETOX) 5 MG PO ONE (10:00)
[2020-09-26] MEDS: BICTEGRAV/EMTRICIT/TENOFOV (BIKTARVY) 50-200-25 MG TABLET PO SCH (10:23)
[2020-09-26] MEDS: PRENATAL VITAMINS W/ FOLIC ACID TABLET (FP) PO SCH (10:23)
[2020-09-26] MEDS: POTASSIUM CHLORIDE TABS 20 MEQ TABLET.ER (FP) PO SCH (10:24)
[2020-09-26] MEDS: NICOTINE 21 MG/24 HOURS TOPICAL PATCH TD SCH (10:24)
[2020-09-26] MEDS: amLODIPine BESYLATE 10 MG TABLET (FP) PO SCH (10:24)
[2020-09-26] MEDS: MELATONIN 5 MG TABLETS PO SCH (22:25)
[2020-09-26] MEDS: QUEtiapine FUMARATE 100 MG TABLET (FP) PO SCH (22:25)
[2020-09-26] MEDS: THIAMINE HCL 100 MG TABLET (FP) PO SCH (22:25)
[2020-09-27] MEDS ORDERED: METHADONE HCL 10 MG TABLET (FOR DETOX USE ONLY) PO ONE (10:00)
[2020-09-27] MEDS: amLODIPine BESYLATE 10 MG TABLET (FP) PO SCH (11:05)
[2020-09-27] MEDS: PRENATAL VITAMINS W/ FOLIC ACID TABLET (FP) PO SCH (11:28)
[2020-09-27] MEDS: NICOTINE 21 MG/24 HOURS TOPICAL PATCH TD SCH (11:28)
[2020-09-27] MEDS: BICTEGRAV/EMTRICIT/TENOFOV (BIKTARVY) 50-200-25 MG TABLET PO SCH (11:42)
[2020-09-27] MEDS: LIDOCAINE 5% TOPICAL PATCH TP SCH (14:39)
[2020-09-27] MEDS ORDERED: LIDOCAINE PATCH REMOVAL MC SCH (22:00)
[2020-09-27] MEDS: QUEtiapine FUMARATE 100 MG TABLET (FP) PO SCH (22:22)
[2020-09-27] MEDS: THIAMINE HCL 100 MG TABLET (FP) PO SCH (22:22)
[2020-09-27] MEDS: MELATONIN 5 MG TABLETS PO SCH (22:22)
[2020-09-28] MEDS ORDERED: METHADONE HCL 5 MG TABLET (FOR DETOX USE ONLY) PO ONE (06:00)
[2020-09-28 09:29] VITALS: BP 131/73; PULSE 72; TEMP 96.6
[2020-09-28] MEDS: BICTEGRAV/EMTRICIT/TENOFOV (BIKTARVY) 50-200-25 MG TABLET PO SCH (10:12)
[2020-09-28] MEDS: LIDOCAINE 5% TOPICAL PATCH TP SCH (10:12)
[2020-09-28] MEDS: amLODIPine BESYLATE 10 MG TABLET (FP) PO SCH (10:13)
[2020-09-28] MEDS: NICOTINE 21 MG/24 HOURS TOPICAL PATCH TD SCH (10:13)
[2020-09-28] MEDS: PRENATAL VITAMINS W/ FOLIC ACID TABLET (FP) PO SCH (10:14)
== END 2020-09-28 12:02 | disposition other institution (70) | DRG 773 ==
LOC: YASAS 11:22 → Y6N 12:19
PROVIDERS: ADMIT Allergy & Immunology; ATTEND Allergy & Immunology
PROC: HZ2ZZZZ Detoxification Services for Substance Abuse Treatment (ICD-10-PCS; principal; 2020-09-23)
DX: F11.23 Opioid dependence with withdrawal (principal); F14.20 Cocaine dependence, uncomplicated; F12.20 Cannabis dependence, uncomplicated; F17.210 Nicotine dependence, cigarettes, uncomplicated; F31.9 Bipolar disorder, unspecified; F19.282 Other psychoactive substance dependence with psychoactive substance-induced sleep disorder; F19.280 Other psychoactive substance dependence with psychoactive substance-induced anxiety disorder; B20 Human immunodeficiency virus [HIV] disease; I10 Essential (primary) hypertension; J45.909 Unspecified asthma, uncomplicated; K70.30 Alcoholic cirrhosis of liver without ascites; E78.00 Pure hypercholesterolemia, unspecified; M54.5 Low back pain; R63.4 Abnormal weight loss; Z68.1 Body mass index [BMI] 19.9 or less, adult; R76.11 Nonspecific reaction to tuberculin skin test without active tuberculosis
CPT/HCPCS: 36415; 80053; 85025; 85027; 86593; 86780; C9803; U0003

== ENCOUNTER 2020-09-28 12:39 | Inpatient (IN) | payer OTHER ==
[2020-09-28 13:03] VITALS: BP 120/81; PULSE 69; TEMP 98.4
[2020-09-28] MEDS ORDERED: LOPERAMIDE HCL 2 MG CAPSULE PO PRN (14:33)
[2020-09-28] MEDS ORDERED: MENTHOL/PHENOL 1 EACH UD MM PRN (14:33)
[2020-09-28] MEDS ORDERED: ACETAMINOPHEN 325 MG TABLET (FP) PO PRN (14:33)
[2020-09-28] MEDS ORDERED: MAGNESIUM CITRATE 300 ML BOTTLE PO PRN (14:33)
[2020-09-28] MEDS ORDERED: guaiFENesin 200 MG/10 ML 10 ML UNIT-DOSE CUPS PO PRN (14:33)
[2020-09-28] MEDS ORDERED: MAGNESIUM HYDROX 2400MG/30ML ORAL SUSPENSION 30 ML CUP PO PRN (14:33)
[2020-09-28] MEDS ORDERED: NICOTINE POLACRILEX 2 MG GUM BUC PRN (14:33)
[2020-09-28] MEDS ORDERED: MAG HYDROX/AL HYDROX/SIMETH 30 ML UNIT-DOSE CUP PO PRN (14:33)
[2020-09-28] MEDS ORDERED: ALBUTEROL SO4 HFA INHALER IH PRN (14:38)
[2020-09-28] MEDS ORDERED: hydrOXYzine PAMOATE 25 MG CAPSULE (FP) PO PRN (17:50)
[2020-09-28] MEDS ORDERED: QUEtiapine FUMARATE 100 MG TABLET (FP) PO SCH (22:00)
[2020-09-28] MEDS ORDERED: THIAMINE HCL 100 MG TABLET (FP) PO SCH (22:00)
[2020-09-28] MEDS ORDERED: MELATONIN 5 MG TABLETS PO SCH (22:00)
[2020-09-29] MEDS ORDERED: BICTEGRAV/EMTRICIT/TENOFOV (BIKTARVY) 50-200-25 MG TABLET PO SCH (08:00)
[2020-09-29] MEDS ORDERED: NICOTINE 21 MG/24 HOURS TOPICAL PATCH TD SCH (10:00)
[2020-09-29] MEDS ORDERED: amLODIPine BESYLATE 10 MG TABLET (FP) PO SCH (10:00)
[2020-09-29] MEDS ORDERED: PRENATAL VITAMINS W/ FOLIC ACID TABLET (FP) PO SCH (10:00)
== END 2020-09-28 19:49 | disposition left against medical advice (07) | DRG 770 ==
LOC: YASAS 12:39 → Y3W 12:41
PROVIDERS: ADMIT Allergy & Immunology; ATTEND Allergy & Immunology
PROC: HZ42ZZZ Group Counseling for Substance Abuse Treatment, Cognitive-Behavioral (ICD-10-PCS; principal; 2020-09-28)
DX: F11.20 Opioid dependence, uncomplicated (principal); F14.20 Cocaine dependence, uncomplicated; F17.210 Nicotine dependence, cigarettes, uncomplicated; F31.9 Bipolar disorder, unspecified; F41.9 Anxiety disorder, unspecified; B20 Human immunodeficiency virus [HIV] disease; J45.909 Unspecified asthma, uncomplicated

== ENCOUNTER 2021-04-14 11:14 | Inpatient (IN) | payer OTHER ==
[2021-04-14 10:45] VITALS: BMI 18.1
[2021-04-14] MEDS ORDERED: ONDANSETRON *ODT* 4 MG TABLET SL ONE (12:00)
[2021-04-14] MEDS ORDERED: MAGNESIUM CITRATE 300 ML BOTTLE PO PRN (12:25)
[2021-04-14] MEDS ORDERED: MAGNESIUM HYDROX 2400MG/30ML ORAL SUSPENSION 30 ML CUP PO PRN (12:25)
[2021-04-14] MEDS ORDERED: MAG HYDROX/AL HYDROX/SIMETH 30 ML UNIT-DOSE CUP PO PRN (12:25)
[2021-04-14] MEDS ORDERED: METHADONE HCL 10 MG TABLET (FOR DETOX USE ONLY) PO ONE (12:25)
[2021-04-14] MEDS ORDERED: METHOCARBAMOL 500 MG TABLET PO PRN (12:25)
[2021-04-14] MEDS ORDERED: NICOTINE POLACRILEX 2 MG GUM BUC PRN (12:25)
[2021-04-14] MEDS ORDERED: BISMUTH SUBSALICYLATE 262 MG/15 ML BTL PO PRN (12:25)
[2021-04-14] MEDS ORDERED: cloNIDine HCL 0.1 MG TABLET PO PRN (12:25)
[2021-04-14] MEDS ORDERED: MENTHOL/PHENOL 1 EACH UD MM PRN (12:25)
[2021-04-14] MEDS ORDERED: ACETAMINOPHEN 325 MG TABLET (FP) PO PRN ×2 (12:25)
[2021-04-14] MEDS ORDERED: IBUPROFEN 400 MG TABLET (FP) PO PRN (12:25)
[2021-04-14] MEDS ORDERED: ONDANSETRON *ODT* 4 MG TABLET SL PRN (12:25)
[2021-04-14] MEDS ORDERED: PRENATAL VITAMINS W/ FOLIC ACID TABLET (FP) PO SCH (12:30)
[2021-04-14] MEDS ORDERED: NICOTINE 14 MG/24 HOURS TOPICAL PATCH TD SCH (12:30)
[2021-04-14] MEDS ORDERED: hydrOXYzine PAMOATE 25 MG CAPSULE (FP) PO SCH (14:00)
[2021-04-14] MEDS ORDERED: hydrOXYzine PAMOATE 25 MG CAPSULE (FP) PO PRN (14:06)
[2021-04-14 14:34] LABS: HEMATOCRIT 38.6 % (32.4-45.2); HEMOGLOBIN 12.9 GM/dL (10.7-15.3); MCH 30.4 pg (25.7-33.7); MCHC 33.5 g/dl (32.0-36.0); MEAN CELL VOLUME 90.7 fl (80-96); MEAN PLT VOLUME 9.3 fl (7.5-11.1); PLATELET COUNT 208 10^3/uL (134-434); RBC 4.25 M/mm3 (3.60-5.2); RDW 13.2 % (11.6-15.6); WHITE BLOOD COUNT 4.1 K/mm3 (4.0-10.0)
[2021-04-14 14:38] LABS: ALBUMIN 3.5 g/dl (3.4-5.0); CALCIUM 9.2 mg/dL (8.5-10.1)
[2021-04-14 14:39] LABS: BLOOD UREA NITROGEN 10.4 mg/dL (7-18)
[2021-04-14 14:42] LABS: CREATININE 0.8 mg/dL (0.55-1.3)
[2021-04-14 14:43] LABS: BILIRUBIN,TOTAL 0.2 mg/dL (0.2-1); TOT PROT 6.9 g/dl (6.4-8.2)
[2021-04-14 17:49] VITALS: BP 135/84; PULSE 62; TEMP 97.1
[2021-04-14] MEDS ORDERED: MELATONIN 5 MG TABLETS PO SCH (22:00)
[2021-04-14] MEDS ORDERED: QUEtiapine FUMARATE 100 MG TABLET (FP) PO SCH (22:00)
[2021-04-14] MEDS ORDERED: THIAMINE HCL 100 MG TABLET (FP) PO SCH (22:00)
[2021-04-15] MEDS ORDERED: METHADONE (DETOX) 20 MG, METHADONE (DETOX) 5 MG PO ONE (10:00)
[2021-04-16] MEDS ORDERED: METHADONE HCL 10 MG TABLET (FOR DETOX USE ONLY) PO ONE (10:00)
[2021-04-17] MEDS ORDERED: METHADONE (DETOX) 10 MG, METHADONE (DETOX) 5 MG PO ONE (10:00)
[2021-04-18] MEDS ORDERED: METHADONE HCL 10 MG TABLET (FOR DETOX USE ONLY) PO ONE (10:00)
[2021-04-19] MEDS ORDERED: METHADONE HCL 5 MG TABLET (FOR DETOX USE ONLY) PO ONE (06:00)
== END 2021-04-14 18:55 | disposition left against medical advice (07) | DRG 770 ==
LOC: YASAS 11:14 → Y3N 11:50
PROVIDERS: ADMIT Allergy & Immunology; ATTEND Allergy & Immunology
PROC: HZ2ZZZZ Detoxification Services for Substance Abuse Treatment (ICD-10-PCS; principal; 2021-04-14)
DX: F11.23 Opioid dependence with withdrawal (principal); F14.20 Cocaine dependence, uncomplicated; F12.20 Cannabis dependence, uncomplicated; F17.210 Nicotine dependence, cigarettes, uncomplicated; F31.81 Bipolar II disorder; F19.282 Other psychoactive substance dependence with psychoactive substance-induced sleep disorder; F19.24 Other psychoactive substance dependence with psychoactive substance-induced mood disorder; B20 Human immunodeficiency virus [HIV] disease; B18.2 Chronic viral hepatitis C; I10 Essential (primary) hypertension; J45.909 Unspecified asthma, uncomplicated; M54.5 Low back pain; G89.29 Other chronic pain; Z62.810 Personal history of physical and sexual abuse in childhood; Z91.410 Personal history of adult physical and sexual abuse; Z59.0 Homelessness; Z88.0 Allergy status to penicillin
CPT/HCPCS: 36415; 80053; 85027; 86593; 86780; C9803; G0396; G0463; Q0162; U0003; U0005

== ENCOUNTER 2021-04-16 09:30 | Inpatient (IN) | payer OTHER ==
[2021-04-16 12:10] VITALS: BMI 18.1
[2021-04-16] MEDS ORDERED: NICOTINE POLACRILEX 2 MG GUM BUC PRN (12:33)
[2021-04-16] MEDS ORDERED: ONDANSETRON *ODT* 4 MG TABLET SL PRN (12:33)
[2021-04-16] MEDS ORDERED: MAGNESIUM HYDROX 2400MG/30ML ORAL SUSPENSION 30 ML CUP PO PRN (12:33)
[2021-04-16] MEDS ORDERED: IBUPROFEN 400 MG TABLET (FP) PO PRN (12:33)
[2021-04-16] MEDS ORDERED: MAGNESIUM CITRATE 300 ML BOTTLE PO PRN (12:33)
[2021-04-16] MEDS ORDERED: cloNIDine HCL 0.1 MG TABLET PO PRN (12:33)
[2021-04-16] MEDS ORDERED: BISMUTH SUBSALICYLATE 524 MG/30 ML PO PRN (12:33)
[2021-04-16] MEDS ORDERED: MAG HYDROX/AL HYDROX/SIMETH 30 ML UNIT-DOSE CUP PO PRN (12:33)
[2021-04-16] MEDS ORDERED: ACETAMINOPHEN 325 MG TABLET (FP) PO PRN ×2 (12:33)
[2021-04-16] MEDS ORDERED: MENTHOL/PHENOL 1 EACH UD MM PRN (12:33)
[2021-04-16] MEDS ORDERED: METHADONE HCL 10 MG TABLET (FOR DETOX USE ONLY) PO ONE (12:33)
[2021-04-16] MEDS: METHOCARBAMOL 500 MG TABLET PO PRN ×2 (13:47→22:35)
[2021-04-16] MEDS: hydrOXYzine PAMOATE 25 MG CAPSULE (FP) PO SCH ×3 (13:47→22:36)
[2021-04-16] MEDS: PRENATAL VITAMINS W/ FOLIC ACID TABLET (FP) PO SCH (13:47)
[2021-04-16] MEDS ORDERED: THIAMINE HCL 100 MG TABLET (FP) PO SCH (22:00)
[2021-04-16] MEDS ORDERED: MELATONIN 5 MG TABLETS PO SCH (22:00)
[2021-04-17] MEDS: hydrOXYzine PAMOATE 25 MG CAPSULE (FP) PO SCH ×2 (06:40→10:08)
[2021-04-17] MEDS ORDERED: METHADONE HCL 5 MG TABLET (FOR DETOX USE ONLY) ONE (08:54)
[2021-04-17] MEDS ORDERED: METHADONE HCL 10 MG TABLET (FOR DETOX USE ONLY) ONE (08:54)
[2021-04-17 09:00] VITALS: BP 164/81; PULSE 57; TEMP 98.2
[2021-04-17] MEDS ORDERED: METHADONE (DETOX) 20 MG, METHADONE (DETOX) 5 MG PO ONE (10:00)
[2021-04-17] MEDS: PRENATAL VITAMINS W/ FOLIC ACID TABLET (FP) PO SCH (10:08)
[2021-04-18] MEDS ORDERED: METHADONE HCL 10 MG TABLET (FOR DETOX USE ONLY) PO ONE (10:00)
[2021-04-19] MEDS ORDERED: METHADONE (DETOX) 10 MG, METHADONE (DETOX) 5 MG PO ONE (10:00)
[2021-04-20] MEDS ORDERED: METHADONE HCL 10 MG TABLET (FOR DETOX USE ONLY) PO ONE (10:00)
[2021-04-21] MEDS ORDERED: METHADONE HCL 5 MG TABLET (FOR DETOX USE ONLY) PO ONE (06:00)
== END 2021-04-17 10:24 | disposition left against medical advice (07) | DRG 770 ==
LOC: YASAS 09:30 → Y3N 12:25
PROVIDERS: ADMIT Allergy & Immunology; ATTEND Allergy & Immunology
PROC: HZ2ZZZZ Detoxification Services for Substance Abuse Treatment (ICD-10-PCS; principal; 2021-04-16)
DX: F10.230 Alcohol dependence with withdrawal, uncomplicated (principal); F11.23 Opioid dependence with withdrawal; F14.20 Cocaine dependence, uncomplicated; F12.20 Cannabis dependence, uncomplicated; Z72.0 Tobacco use; F19.280 Other psychoactive substance dependence with psychoactive substance-induced anxiety disorder; F19.282 Other psychoactive substance dependence with psychoactive substance-induced sleep disorder; F19.24 Other psychoactive substance dependence with psychoactive substance-induced mood disorder; F41.9 Anxiety disorder, unspecified; B20 Human immunodeficiency virus [HIV] disease; I10 Essential (primary) hypertension; J45.909 Unspecified asthma, uncomplicated; M54.5 Low back pain; G89.29 Other chronic pain; R63.4 Abnormal weight loss; Z68.1 Body mass index [BMI] 19.9 or less, adult; Z88.0 Allergy status to penicillin; Z59.0 Homelessness
CPT/HCPCS: C9803; J0735; U0003; U0005

== ENCOUNTER 2023-01-23 22:35 | Emergency (ER) | payer OTHER ==
[2023-01-23 22:48] VITALS: TEMP 98.5; BMI 18.1
[2023-01-23] MEDS ORDERED: FAMOTIDINE 20 MG/50 ML IVPB 20 MG/50 ML MG IVPB ONE (23:28)
[2023-01-23] MEDS ORDERED: LACTATED RINGERS SOLUTION 1000 ML INFUS.BAG IV ONE (23:28)
[2023-01-23] MEDS ORDERED: ONDANSETRON 4 MG/2 ML VIAL IVPUSH ONE (23:28)
[2023-01-24] MEDS ORDERED: ASPIRIN 81 MG CHEWABLE TABLETS PO ONE ×3 (00:23→00:27)
[2023-01-24] MEDS ORDERED: CLOPIDOGREL BISULFATE 300 MG TABLET PO ONE ×2 (00:25→00:27)
[2023-01-24] MEDS ORDERED: ASPIRIN 81 MG CHEWABLE TABLETS ONE (00:26)
[2023-01-24] MEDS ORDERED: CLOPIDOGREL BISULFATE 300 MG TABLET ONE (00:26)
[2023-01-24] MEDS ORDERED: ONDANSETRON 4 MG/2 ML VIAL ONE (00:26)
[2023-01-24] MEDS ORDERED: HEPARIN NA (PORCINE) 5,000 UNITS/ML 1ML VIAL SQ ONE (00:27)
[2023-01-24] MEDS ORDERED: ONDANSETRON 4 MG/2 ML VIAL IVPUSH ONE (00:27)
[2023-01-24] MEDS ORDERED: FAMOTIDINE 20 MG/50 ML IVPB 20 MG/50 ML MG IVPB ONE (00:31)
[2023-01-24] MEDS ORDERED: HEPARIN NA (PORCINE) 5,000 UNITS/ML 1ML VIAL ONE (00:31)
[2023-01-24 00:33] LABS: VENOUS BASE EXCESS 6.1 mmol/L (-2-2); VENOUS O2 SATURATION 89.5 % (70-80); VENOUS PCO2 54.6 mmHg (38-52); VENOUS PH 7.392 (7.310-7.410)
[2023-01-24] MEDS ORDERED: ATORVASTATIN CA 80 MG TABLET (FP) PO ONE (00:41)
[2023-01-24] MEDS ORDERED: HEPARIN INFUSION - 25,000 UNITS/500 ML INFUS.BAG IVPB SCH (00:45)
[2023-01-24 00:53] LABS: URINE APPEARANCE CLEAR; URINE BILIRUBIN NEGATIVE (NEGATIVE); URINE COLOR YELLOW; URINE GLUCOSE (UA) NEGATIVE (NEGATIVE); URINE KETONE NEGATIVE (NEGATIVE); URINE LEUK ESTERASE NEGATIVE (NEGATIVE); URINE NITRITE NEGATIVE (NEGATIVE); URINE PROTEIN TRACE (NEGATIVE); URINE UROBILINOGEN 0.2 mg/dL (0.2-1.0)
[2023-01-24 00:54] VITALS: BP 134/62; PULSE 64; RESP 18
[2023-01-24 01:07] LABS: BASO % 0.4 % (0-2.0); EOS % 0.4 % (0-4.5); HEMATOCRIT 36.5 % (32.4-45.2); HEMOGLOBIN 12.6 GM/dL (10.7-15.3); LYMPH % 14.3 % (8-40); MCH 30.7 pg (25.7-33.7); MCHC 34.4 g/dl (32.0-36.0); MEAN CELL VOLUME 89.4 fl (80-96); MEAN PLT VOLUME 8.4 fl (7.5-11.1); MONO % 6.7 % (3.8-10.2); NEUT % 78.2 % (42.8-82.8); PLATELET COUNT 219 10^3/uL (134-434); RBC 4.09 M/mm3 (3.60-5.2); RDW 14.4 % (11.6-15.6); WHITE BLOOD COUNT 8.1 K/mm3 (4.0-10.0)
[2023-01-24 01:21] LABS: INR 0.95 (0.83-1.09)
[2023-01-24 01:24] LABS: ACTIVATED PTT 31.7 SECONDS (25.2-36.5)
[2023-01-24 01:27] LABS: ALBUMIN 3.9 g/dl (3.4-5.0); BLOOD UREA NITROGEN 17.6 mg/dL (7-18); CALCIUM 9.1 mg/dL (8.5-10.1)
[2023-01-24 01:31] LABS: BILIRUBIN,TOTAL 0.3 mg/dL (0.2-1); CREATININE 0.6 mg/dL (0.55-1.3)
[2023-01-24 01:33] LABS: TOT PROT 7.6 g/dl (6.4-8.2)
== END 2023-01-24 00:55 | disposition short-term general hospital (02) ==
LOC: JER 22:35
PROC: 3E033GC Introduction of Other Therapeutic Substance into Peripheral Vein, Percutaneous Approach (ICD-10-PCS; 2023-01-23)
PROC: 3E033GC Introduction of Other Therapeutic Substance into Peripheral Vein, Percutaneous Approach (ICD-10-PCS; principal; 2023-01-24)
DX: R11.2 Nausea with vomiting, unspecified (principal); R19.7 Diarrhea, unspecified; R10.30 Lower abdominal pain, unspecified; Z20.822 Contact with and (suspected) exposure to COVID-19
CPT/HCPCS: 0241U-QW; 36415; 71046-TC-FY; 80053; 80307; 81003; 82803; 83605; 83690; 84484; 85025; 85610; 85730; 86850; 86900; 86901; 87086; 93005; 93010; 99285-25; J1644

== ENCOUNTER 2023-03-04 13:50 | Inpatient (IN) | payer OTHER ==
[2023-03-04 15:39] VITALS: BMI 18.8
[2023-03-04] MEDS ORDERED: METHOCARBAMOL 500 MG TABLET PO PRN (16:58)
[2023-03-04] MEDS ORDERED: IBUPROFEN 600 MG TABLET (FP) PO PRN (16:58)
[2023-03-04] MEDS ORDERED: ACETAMINOPHEN 325 MG TABLET (FP) PO PRN (16:58)
[2023-03-04] MEDS ORDERED: BENZONATATE 200 MG CAPSULE PO PRN (16:58)
[2023-03-04] MEDS ORDERED: methaDONE HCL 10 MG TABLET (FOR DETOX USE ONLY) PO ONE (16:58)
[2023-03-04] MEDS ORDERED: DICYCLOMINE HCL 10 MG CAPSULE PO PRN (16:58)
[2023-03-04] MEDS ORDERED: POLYETHYLENE GLYCOL (HEALTHYLAX) 3350 17 GM PACKET PO PRN (16:58)
[2023-03-04] MEDS ORDERED: NALOXONE HCL (KLOXXADO) 8 MG SPRAY NS PRN (16:58)
[2023-03-04] MEDS ORDERED: MAG HYDROX/AL HYDROX/SIMETH 30 ML UNIT-DOSE CUP PO PRN (16:58)
[2023-03-04] MEDS ORDERED: MAGNESIUM HYDROX 2400MG/30ML ORAL SUSPENSION 30 ML CUP PO PRN (16:58)
[2023-03-04] MEDS ORDERED: ONDANSETRON *ODT* 4 MG TABLET SL PRN (16:58)
[2023-03-04] MEDS ORDERED: BISMUTH SUBSALICYLATE 524 MG/30 ML PO PRN (16:58)
[2023-03-04] MEDS ORDERED: NICOTINE 10 MG CARTRIDGE (INHALER) IH PRN (16:58)
[2023-03-04] MEDS ORDERED: NALOXONE HCL 0.4 MG/ML VIAL IM PRN (16:58)
[2023-03-04] MEDS ORDERED: LOPERAMIDE HCL 2 MG CAPSULE PO PRN (16:58)
[2023-03-04] MEDS ORDERED: IBUPROFEN 400 MG TABLET (FP) PO PRN (16:58)
[2023-03-04] MEDS ORDERED: hydrOXYzine PAMOATE 25 MG CAPSULE (FP) PO PRN (16:58)
[2023-03-04] MEDS ORDERED: BENZOCAINE/MENTHOL (CHLORASEPTIC ) LOZENGE MM PRN (16:58)
[2023-03-04] MEDS ORDERED: methaDONE HCL 10 MG TABLET (FOR DETOX USE ONLY) ONE (18:26)
[2023-03-04] MEDS ORDERED: ALBUTEROL SO4 HFA INHALER IH PRN (18:49)
[2023-03-04] MEDS: THIAMINE HCL 100 MG TABLET (FP) PO SCH (22:50)
[2023-03-04] MEDS: MELATONIN 5 MG TABLETS PO SCH (22:50)
[2023-03-04] MEDS: cloNIDine HCL 0.1 MG TABLET PO PRN (22:51)
[2023-03-04] MEDS: guaiFENesin 600 MG TABLET.ER (FP) PO PRN (22:52)
[2023-03-05] MEDS: BICTEGRAV/EMTRICIT/TENOFOV (BIKTARVY) 50-200-25 MG TABLET PO SCH (07:58)
[2023-03-05] MEDS: PRENATAL VITAMINS W/ FOLIC ACID TABLET (FP) PO SCH (10:17)
[2023-03-05] MEDS: guaiFENesin 600 MG TABLET.ER (FP) PO PRN (10:18)
[2023-03-05 11:35] LABS: HEMATOCRIT 33.3 % (32.4-45.2); HEMOGLOBIN 11.5 GM/dL (10.7-15.3); MCH 31.6 pg (25.7-33.7); MCHC 34.5 g/dl (32.0-36.0); MEAN CELL VOLUME 91.9 fl (80-96); MEAN PLT VOLUME 9.2 fl (7.5-11.1); PLATELET COUNT 139 10^3/uL (134-434); RBC 3.62 M/mm3 (3.60-5.2); RDW 13.7 % (11.6-15.6); WHITE BLOOD COUNT 2.9 K/mm3 (4.0-10.0)
[2023-03-05 11:54] LABS: POTASSIUM 3.8 mmol/L (3.5-5.1)
[2023-03-05 12:21] LABS: CALCIUM 8.5 mg/dL (8.5-10.1)
[2023-03-05 12:22] LABS: ALBUMIN 3.3 g/dl (3.4-5.0); BLOOD UREA NITROGEN 15.9 mg/dL (7-18)
[2023-03-05 12:25] LABS: CREATININE 0.7 mg/dL (0.55-1.3)
[2023-03-05 12:26] LABS: BILIRUBIN,TOTAL 0.6 mg/dL (0.2-1); TOT PROT 6.3 g/dl (6.4-8.2)
[2023-03-05] MEDS: cloNIDine HCL 0.1 MG TABLET PO PRN ×2 (17:42→22:13)
[2023-03-05] MEDS: THIAMINE HCL 100 MG TABLET (FP) PO SCH (22:13)
[2023-03-05] MEDS: MELATONIN 5 MG TABLETS PO SCH (22:13)
[2023-03-06] MEDS: BICTEGRAV/EMTRICIT/TENOFOV (BIKTARVY) 50-200-25 MG TABLET PO SCH (07:28)
[2023-03-06] MEDS: PRENATAL VITAMINS W/ FOLIC ACID TABLET (FP) PO SCH (09:49)
[2023-03-06 09:54] VITALS: BP 108/77; PULSE 68; RESP 17; TEMP 98.3
[2023-03-06] MEDS ORDERED: methaDONE HCL 10 MG TABLET (FOR DETOX USE ONLY) PO ONE (10:00)
[2023-03-08] MEDS ORDERED: methaDONE HCL 10 MG TABLET (FOR DETOX USE ONLY) PO ONE (10:00)
== END 2023-03-06 09:48 | disposition left against medical advice (07) | DRG 770 ==
LOC: YASAS 13:50 → Y6N 17:15
PROVIDERS: ADMIT Allergy & Immunology; ATTEND Surgery
PROC: HZ2ZZZZ Detoxification Services for Substance Abuse Treatment (ICD-10-PCS; principal; 2023-03-04)
DX: F11.23 Opioid dependence with withdrawal (principal); F14.20 Cocaine dependence, uncomplicated; F17.210 Nicotine dependence, cigarettes, uncomplicated; F31.9 Bipolar disorder, unspecified; B20 Human immunodeficiency virus [HIV] disease; Z79.899 Other long term (current) drug therapy; I25.10 Atherosclerotic heart disease of native coronary artery without angina pectoris; I10 Essential (primary) hypertension; I25.2 Old myocardial infarction; Z68.1 Body mass index [BMI] 19.9 or less, adult; Z88.0 Allergy status to penicillin; Z28.310 Unvaccinated for COVID-19; Z28.9 Immunization not carried out for unspecified reason
CPT/HCPCS: 36415; 80053; 81025; 85027; 86593; 86780; C9803-CS; U0003; U0005

== ENCOUNTER 2023-06-14 17:12 | Inpatient (IN) | payer OTHER ==
[2023-06-14 18:48] VITALS: BMI 16.9
[2023-06-14] MEDS ORDERED: ALBUTEROL SO4 HFA INHALER IH PRN (20:12)
[2023-06-14] MEDS ORDERED: IBUPROFEN 400 MG TABLET (FP) PO PRN (20:13)
[2023-06-14] MEDS ORDERED: NALOXONE HCL (KLOXXADO) 8 MG SPRAY NS PRN (20:13)
[2023-06-14] MEDS ORDERED: BENZONATATE 200 MG CAPSULE PO PRN (20:13)
[2023-06-14] MEDS ORDERED: ACETAMINOPHEN 325 MG TABLET (FP) PO PRN (20:13)
[2023-06-14] MEDS ORDERED: MAG HYDROX/AL HYDROX/SIMETH 30 ML UNIT-DOSE CUP PO PRN (20:13)
[2023-06-14] MEDS ORDERED: ONDANSETRON *ODT* 4 MG TABLET SL PRN (20:13)
[2023-06-14] MEDS ORDERED: NALOXONE HCL 0.4 MG/ML VIAL IM PRN (20:13)
[2023-06-14] MEDS ORDERED: IBUPROFEN 600 MG TABLET (FP) PO PRN (20:13)
[2023-06-14] MEDS ORDERED: BENZOCAINE/MENTHOL (CHLORASEPTIC ) LOZENGE MM PRN (20:13)
[2023-06-14] MEDS ORDERED: POLYETHYLENE GLYCOL (HEALTHYLAX) 3350 17 GM PACKET PO PRN (20:13)
[2023-06-14] MEDS ORDERED: DICYCLOMINE HCL 10 MG CAPSULE PO PRN (20:13)
[2023-06-14] MEDS ORDERED: guaiFENesin 600 MG TABLET.ER (FP) PO PRN (20:13)
[2023-06-14] MEDS ORDERED: MAGNESIUM HYDROX 2400MG/30ML ORAL SUSPENSION 30 ML CUP PO PRN (20:13)
[2023-06-14] MEDS ORDERED: BISMUTH SUBSALICYLATE 524 MG/30 ML PO PRN (20:13)
[2023-06-14] MEDS ORDERED: LOPERAMIDE HCL 2 MG CAPSULE PO PRN (20:13)
[2023-06-14] MEDS ORDERED: NICOTINE POLACRILEX 2 MG GUM BUC PRN (20:13)
[2023-06-15] MEDS: THIAMINE HCL 100 MG TABLET (FP) PO SCH ×2 (00:03→22:46)
[2023-06-15] MEDS: MELATONIN 5 MG TABLETS PO SCH ×2 (00:03→22:46)
[2023-06-15] MEDS: hydrOXYzine PAMOATE 25 MG CAPSULE (FP) PO PRN ×3 (05:38→19:13)
[2023-06-15] MEDS ORDERED: CLOTRIMAZOLE 1% CREAM TP PRN (08:40)
[2023-06-15] MEDS ORDERED: HYDROCORTISONE 1% TOPICAL CREAM 30 GM TUBE TP PRN (08:44)
[2023-06-15] MEDS ORDERED: ALBUTEROL SO4 0.083% IH SOL 2.5 MG/3 ML VIAL.NEB. NEB PRN (08:44)
[2023-06-15] MEDS ORDERED: LORATADINE 10 MG TABLET PO PRN (08:45)
[2023-06-15] MEDS ORDERED: BUPRENORPHINE HCL 150 MCG, BUPRENORPHINE HCL 75 MCG BC ONE (08:47)
[2023-06-15] MEDS ORDERED: BUPRENORPHINE HCL 150 MCG, BUPRENORPHINE HCL 75 MCG BC PRN (08:47)
[2023-06-15] MEDS ORDERED: ALBUTEROL SO4 HFA INHALER IH PRN (08:49)
[2023-06-15] MEDS: PRENATAL VITAMINS W/ FOLIC ACID TABLET (FP) PO SCH (09:22)
[2023-06-15] MEDS: NICOTINE 21 MG/24 HOURS TOPICAL PATCH TD SCH (09:25)
[2023-06-15 10:12] LABS: HEMATOCRIT 36.4 % (32.4-45.2); HEMOGLOBIN 12.5 GM/dL (10.7-15.3); MCHC 34.4 g/dl (32.0-36.0); MEAN PLT VOLUME 8.8 fl (7.5-11.1); PLATELET COUNT 149 10^3/uL (134-434); RBC 4.04 M/mm3 (3.60-5.2); WHITE BLOOD COUNT 3.9 K/mm3 (4.0-10.0)
[2023-06-15 10:30] LABS: POTASSIUM 3.6 mmol/L (3.5-5.1)
[2023-06-15 10:37] LABS: ALBUMIN 3.4 g/dl (3.4-5.0); BLOOD UREA NITROGEN 17.8 mg/dL (7-18); CALCIUM 8.9 mg/dL (8.5-10.1)
[2023-06-15 10:40] LABS: CREATININE 0.7 mg/dL (0.55-1.3)
[2023-06-15 10:42] LABS: BILIRUBIN,TOTAL 0.3 mg/dL (0.2-1); TOT PROT 6.6 g/dl (6.4-8.2)
[2023-06-15 11:03] LABS: EPI CELLS >36 /uL (0-25.1); HYALINE CASTS 6 /uL (0-3.1); URINE APPEARANCE CLOUDY; URINE BACTERIA 5355 /uL (0-1359); URINE BILIRUBIN NEGATIVE (NEGATIVE); URINE COLOR YELLOW; URINE GLUCOSE (UA) NEGATIVE (NEGATIVE); URINE KETONE TRACE (NEGATIVE); URINE LEUK ESTERASE 1+ (NEGATIVE); URINE NITRITE NEGATIVE (NEGATIVE); URINE PROTEIN TRACE (NEGATIVE); URINE RBC 32 /uL (0-23.9); URINE UROBILINOGEN 0.2 mg/dL (0.2-1.0); URINE WBC 291 /uL (0-25.8)
[2023-06-15] MEDS: SODIUM CHLORIDE NASAL SPRAY 44 ML BOTTLE NS SCH ×2 (11:13→22:46)
[2023-06-15] MEDS: SULFAMETHOXAZOLE/TRIMETHOPRIM 800MG/160MG D.S. TABLET PO SCH (11:13)
[2023-06-15 11:17] LABS: URINE CRYSTALS CA OXALATE FEW /hpf
[2023-06-15] MEDS: amLODIPine BESYLATE 10 MG TABLET (FP) PO SCH (12:53)
[2023-06-16] MEDS ORDERED: BUPRENORPHINE HCL 150 MCG, BUPRENORPHINE HCL 75 MCG BC PRN
[2023-06-16] MEDS: hydrOXYzine PAMOATE 25 MG CAPSULE (FP) PO PRN (05:58)
[2023-06-16] MEDS ORDERED: BUPRENORPHINE HCL 150 MCG, BUPRENORPHINE HCL 75 MCG BC SCH (06:00)
[2023-06-16 09:27] VITALS: BP 166/74; PULSE 63; RESP 16; TEMP 98.4
[2023-06-16] MEDS: PRENATAL VITAMINS W/ FOLIC ACID TABLET (FP) PO SCH (09:39)
[2023-06-16] MEDS: SODIUM CHLORIDE NASAL SPRAY 44 ML BOTTLE NS SCH (09:39)
[2023-06-16] MEDS: amLODIPine BESYLATE 10 MG TABLET (FP) PO SCH (09:39)
[2023-06-16] MEDS: SULFAMETHOXAZOLE/TRIMETHOPRIM 800MG/160MG D.S. TABLET PO SCH (09:39)
[2023-06-16] MEDS: NICOTINE 21 MG/24 HOURS TOPICAL PATCH TD SCH (09:40)
[2023-06-16] MEDS ORDERED: LISINOPRIL 10 MG TABLET PO SCH (10:00)
[2023-06-16] MEDS ORDERED: NITROFURANTOIN MACROCRYSTAL 50 MG CAPSULE (FP) PO SCH (11:00)
[2023-06-17] MEDS ORDERED: BUPRENORPHINE HCL 450 MCG FILM BC PRN
[2023-06-17] MEDS ORDERED: BUPRENORPHINE HCL 450 MCG FILM BC SCH (06:00)
[2023-06-18] MEDS ORDERED: BUPRENORPHINE/NALOXONE 4 MG/1 MG FILM PACKET SL SCH (06:00)
[2023-06-19] MEDS ORDERED: BUPRENORPHINE/NALOXONE 8 MG/2 MG FILM PACKET SL ONE (06:00)
== END 2023-06-16 10:40 | disposition left against medical advice (07) | DRG 770 ==
LOC: YASAS 17:12 → Y6N 22:40
PROVIDERS: ADMIT Allergy & Immunology; ATTEND Allergy & Immunology
PROC: HZ2ZZZZ Detoxification Services for Substance Abuse Treatment (ICD-10-PCS; principal; 2023-06-14)
DX: F11.23 Opioid dependence with withdrawal (principal); F14.20 Cocaine dependence, uncomplicated; F12.20 Cannabis dependence, uncomplicated; F17.210 Nicotine dependence, cigarettes, uncomplicated; F31.9 Bipolar disorder, unspecified; F19.24 Other psychoactive substance dependence with psychoactive substance-induced mood disorder; B20 Human immunodeficiency virus [HIV] disease; I10 Essential (primary) hypertension; N39.0 Urinary tract infection, site not specified; B18.2 Chronic viral hepatitis C; R63.4 Abnormal weight loss; Z68.1 Body mass index [BMI] 19.9 or less, adult; Z86.11 Personal history of tuberculosis; Z86.19 Personal history of other infectious and parasitic diseases; Z79.899 Other long term (current) drug therapy
CPT/HCPCS: 36415; 80053; 81003; 85027; 86593; 86780; 87635; Q0162